=== PATIENT | male | born 1945 | race Caucasian/White ===

== ENCOUNTER 2021-01-22 12:05 | Inpatient (IN) | payer MEDICARE, OTHER ==
[2021-01-22] MEDS ORDERED: FAMOTIDINE 20 MG/2 ML VIAL IV ONE (12:38)
[2021-01-22] MEDS ORDERED: IPRATROPIUM BROM 0.5MG/2.5ML ONE ×3 (12:38→14:03)
[2021-01-22] MEDS ORDERED: LEVALBUTEROL 1.25 MG/3 ML NEB ONE ×3 (12:38→14:06)
[2021-01-22 12:48] LABS: Protime INR 1.09
[2021-01-22 12:52] LABS: Absolute Lymphocytes (CBC) 0.9 K/uL (0.7-4.9); Basophils % 0.2 % (0-1.3); Hematocrit 36.5 % (39.6-49.0); Lymphocytes % 10.8 % (15.3-44.8); MPV 9.3 fL (7.6-11.3); RBC Red Blood Cell Count 4.16 M/uL (4.33-5.43)
[2021-01-22 13:08] LABS: Albumin 2.8 g/dL (3.4-5.0); Bilirubin Direct 0.2 mg/dL (0-0.2); Bilirubin Total 0.4 mg/dL (0.2-1.0); Magnesium 2.3 mg/dL (1.8-2.4); Potassium 3.4 mmol/L (3.5-5.1); Protein, Total 6.8 g/dL (6.4-8.2); Troponin (Emerg Dept Use Only) 0.1 ng/mL (0.0-0.045)
--- NOTE | 2021-01-22 13:26 | RAD REPORT ---
EXAM DESCRIPTION: RAD - Chest Single View - 01/22/2021 1:17 pm CLINICAL HISTORY: Cough;COPD COMPARISON: June 2018 TECHNIQUE: AP portable chest image was obtained 01/22/2021 1:17 pm . FINDINGS: Bullous emphysema changes are present in the upper lung vicente with fibrotic stranding in both lung bases. Lung markings are accentuated by under penetrated technique. Right lung field is not clearly different. Stranding at the left base is slightly more pronounced in the superimposed left b ase infiltrate is suspected. This is not a dense consolidation. Failure or volume overload are unlikely. Heart and vasculature are normal. No measurable pleural effu shantell and no pneumothorax. No acute bony abnormality seen. No acute aortic findings suspected. IMPRESSION: Suspected early left lung base infiltrate superimposed on prominent COPD.
[2021-01-22] MEDS ORDERED: Levofloxacin500mg IV 500 MG/100 ML BAG IV ONE (13:49)
--- NOTE | 2021-01-22 13:57 | ER ---
Nurse's Notes [facility] Name: Chance Rodriguez Age: 75 yrs Sex: Male : 1945 Arrival Date: 01/22/2021 Time: 12:06 Bed 8 Private MD: Diagnosis: COPD/ Chronic obstructive pulmonary disease with (acute) exacerbation;Hypoxemia;Non ST elevation [place];Weakness;Coronavirus infection, unspecified Presentation: 01/22 12:06 Chief complaint: EMS states: increasing SOB over the past week. pt normally wears O2 at tr6 home, however has not used it for about a year because insurance does not cover it. on EMS arrival pt was 77% on RA. 125 solumedrol given and pt placed on NRB, sat increased to 100%. on arrival to ED pt sat 87% on RA. pt reports that he had atrovent treatment 1 hr prior to arrival. Coronavirus screen: At this time, unable to obtain information related to travel outside the [place] Ebola Screen: No symptoms or risks identified at this time. Initial Sepsis Screen: Does the patient meet any 2 criteria? RR > 20 per min. No. Patient's initial sepsis screen is negative. Does the patient have a suspected source of infection? No. Patient's initial sepsis screen is negative. Risk Assessment: Do you want to hurt yourself or someone else? Patient reports no desire to harm self or others. Onset of symptoms is unknown. Care prior to arrival: Medication(s) given: 125 solumedrol. 12:06 Method Of Arrival: EMS: [facility] tr6 12:06 Acuity: ROLANDO 2 tr6 12:06 Chief complaint: Patient's son or daughter states: granddaughter at bedside states that tr6 pt has not been feeling well for about a week, but denies fever. pt has chronic cough. pts granddaughter reports that pt told her that he lost his taste and smell recently. pts granddaughter also states that the labored breathing is baseline for pt. Care prior to arrival: BS 118. 12:19 Care prior to arrival: IV initiated. 20 GA, in the right forearm. tr6 Triage Assessment: 12:19 General: Appears uncomfortable, Behavior is calm, cooperative, appropriate for age. tr6 Pain: Denies pain. EENT: No deficits noted. EENT: Reports decreased hearing. Neuro: Level of Consciousness is awake, alert, obeys commands. Cardiovascular: Rhythm is sinus rhythm. Respiratory: Reports shortness of breath at rest on exertion since about a week Airway is patent Trachea midline Respiratory effort is even, labored, Respiratory pattern is regular, tachypnea the patient has moderate shortness of breath Parent/caregiver reports the patient having cough that is non-productive, chronic labored breathing. GI: Abdomen is round distended. : No deficits noted. Derm: No deficits noted. Musculoskeletal: No deficits noted. Historical: - Allergies: 12:12 No Known Allergies; tr6 - Home Meds: 12:18 Anoro Ellipta inhalation [Active]; Albuterol Inhl [Active]; Atrovent Nebulizer [Active];tr6 - PMHx: 12:12 copd; chronic cough; tr6 - PSHx: 12:12 Appendectomy; back surgery; tr6 - Immunization history:: Adult Immunizations unknown, Client reports having NOT received the Covid vaccine. - Social history:: Smoking status: Patient/guardian denies using tobacco, the patient reports quitting approximately 30 years ago. Screenin:28 Abuse screen: Denies threats or abuse. Denies injuries from another. Nutritional tr6 screening: No deficits noted. Tuberculosis screening: No symptoms or risk factors identified. Fall Risk None identified. Assessment: 12:36 Reassessment: see triage assessment. tr6 12:54 General: Appears in no apparent distress. unkempt, Behavior is calm, cooperative, tw5 appropriate for age, anxious. Pain: Denies pain. Cardiovascular: Heart tones S1 S2 present Capillary refill < 3 seconds is brisk in bilateral fingers. Respiratory: Airway is patent Trachea midline Respiratory effort is labored, with retractions, Respiratory pattern is tachypnea Breath sounds are coarse bilaterally. Onset: The symptoms/episode began/occurred yesterday, the patient has moderate shortness of breath. 13:44 Reassessment: Patient states feeling better. General: Appears uncomfortable, Behavior tw5 is calm, cooperative, appropriate for age. Respiratory: Airway is patent Trachea midline Respiratory effort is labored, Respiratory pattern is tachypnea Breath sounds are coarse bilaterally. 14:00 General: DaughterQuintin is at the bedside. . tw5 16:02 General: Charting moved to the [facility]. tw5 19:40 Reassessment: Report called to Mu RN, Pt to 405. bc5 Vital Signs: 12:06 BP 170 / 120; Pulse 88; Resp 30; Temp 97.9(O); Pulse Ox 88% on R/A; Weight 92.08 kg; tr6 Height 5 ft. 8 in. (172.72 cm); Pain 0/10; 12:54 BP 136 / 100; Pulse 82; Resp 26; Pulse Ox 94% on 10% Nebulizer Mask; Pain 0/10; tw5 13:44 BP 169 / 87; Pulse 93; Resp 24; Pulse Ox 93% on 6 lpm NC; Pain 0/10; tw5 14:30 BP 111 / 73; Pulse 94; Resp 20; Pulse Ox 99% on BiPAP; tr6 12:06 Body Mass Index 30.87 (92.08 kg, 172.72 cm) tr6 ED Course: 12:06 Patient arrived in ED. tr6 12:07 Khang Winston MD is Attending Physician. [facility] 12:12 Triage completed. tr6 12:20 First set of blood cultures drawn by me. aa5 12:28 Resting quietly. Awaiting lab results, Awaiting ED provider evaluation. tr6 12:28 Patient has correct armband on for positive identification. Bed in low position. Call tr6 light in reach. Side rails up X2. compliance monitor on. Pulse ox on. NIBP on. Door closed. Noise minimized. Visitors limited. Lights dimmed. Moved to private room. Warm blanket given. Verbal reassurance given. Family accompanied patient. 12:28 No provider procedures requiring assistance completed. Subsequent Neb Treatment Given tr6 as ordered Patient tolerated procedure well without adverse effect. Maintain EMS IV. Dressing intact. Good blood return noted. Site clean \T\ dry. Gauge \T\ site: 20 R FA. Oxygen administration via non-rebreather mask \T\ 15L/min Response to oxygen therapy: symptoms improved. 12:29 Patient placed in an exam room. EKG completed in triage. Results shown to . tr6 12:30 Inserted saline lock: 18 gauge in right antecubital area, using aseptic technique. aa5 Blood collected. 12:30 Initial lab(s) drawn, by me, sent to lab. Second set of blood cultures drawn by me. aa5 12:31 Claudine Emmanuel is Primary Nurse. tw 12:53 Basic Metabolic Panel Sent. tw 12:53 Liver (Hepatic) Function Sent. tw 12:53 ABG Sent. tw 12:53 Flu Sent. tw 12:53 Lactate Sent. tw 12:53 Blood Culture Adult (2) Sent. tw 12:53 Basic Metabolic Panel Sent. tw 12:53 CBC with Diff Sent. 12:53 LFT's Sent. tw 12:53 Magnesium Sent. tw 12:53 NT PRO-BNP Sent. tw 12:54 Verbal reassurance given. tw 12:54 Troponin (emerg Dept Use Only) Sent. tw5 13:17 XRAY Chest (1 view) In Process Unspecified. EDMS 13:55 Saqib Spaulding MD is Hospitalizing Provider. [facility] 14:46 Patient admitted, IV remains in place. tr6 Administered Medications: 12:38 Drug: Pepcid (famotidine) 20 mg Route: IVP; Site: right antecubital; tw 12:53 Follow up: Response: No adverse reaction 13:54 Follow up: Response: No adverse reaction tw 12:48 Drug: Xopenex (levalbuterol) 3.75 mg Route: Inhalation; 13:54 Follow up: Response: No adverse reaction 12:48 Drug: AtroVENT (ipratropium) Aerosol 0.5 mg Route: Inhalation; tw 13:32 Drug: levofloxacin 500 mg Volume: 100 ml; Route: IVPB; Infused Over: 60 mins; Site: tr6 right antecubital; 15:13 Follow up: Response: No adverse reaction; IV Status: Completed infusion 13:48 Drug: Lovenox (enoxaparin) 90 mg Route: Sub-Q; Site: right lower abdomen; tw 13:55 Follow up: Response: No adverse reaction 13:48 Drug: Aspirin 81 mg Route: PO; 13:54 Follow up: Response: No adverse reaction 13:49 Drug: Potassium Effervescent Tablet 25 mEq Route: PO; 13:55 Follow up: Response: No adverse reaction tw 13:52 Drug: AtroVENT (ipratropium) Aerosol 0.5 mg Route: Inhalation; 13:52 Drug: AtroVENT (ipratropium) Aerosol 0.5 mg Route: Inhalation; tw5 13:52 Drug: Xopenex (levalbuterol) 2.5 mg Route: Inhalation; tw5 13:55 Drug: Nitro-Bid (nitroglycerin) Ointment 2 % 1 inches Route: Transdermal; Site: tw5 anterior chest wall; 13:59 Drug: Magnesium Sulfate 2 grams Route: IVPB; Infused Over: 2 hrs; Site: right hand; tw5 16:03 Follow up: IV Status: Completed infusion tw5 Outcome: 13:56 Decision to Hospitalize by Provider. cata 14:46 Admitted to tr6 14:46 Condition: stable 14:46 Instructed on the need for admit, Demonstrated understanding of instructions. 19:41 Patient left the ED. 5 Signatures: Dispatcher [employer] EDMS Khang Winston MD MD cha Calderon, Audri, RN RN aa5 Claudine Shipley RN RN tr6 Opal Dent RN RN bc5 Claudine Emmanuel tw5 Corrections: (The following items were deleted from the chart) 12:19 12:12 Home Meds: Atrovent Inhl; tr6 tr6 12:36 12:06 BP 170 / 120; Pulse 88bpm; Resp 30bpm; Pulse Ox 88% RA; tr6 tr6 13:46 12:53 CORONAVIRUS+ drawn and sent. tw5 EDNM 13:55 12:06 Chief complaint: EMS states: increasing SOB over the past week. pt normally wears tr6 O2 at home, however has not used it for about a year because insurance does not cover it. on EMS arrival pt was 77% on RA. 125 solumedrol given and pt placed on NRB, sat increased to 100%. on arrival to ED pt sat 87% on RA. pt reports that he had atrovent treatment 1 hr prior to arrival tr6 13:55 12:06 Chief complaint: Patient's son or daughter states: granddaughter at bedside tr6 states that pt has not been feeling well for about a week, but denies fever. pt has chronic cough. pts granddaughter reports that pt told her that he lost his taste and smell recently tr6
--- NOTE | 2021-01-22 13:57 | EDPHYS ---
Physician Documentation [facility] [place], [place] Name: Chance Rodriguez Age: 75 yrs Sex: Male : 1945 Arrival Date: 01/22/2021 Time: 12:06 Bed 8 Private MD: ED Physician Khang Winston HPI: 01/22 13:42 This 75 yrs old Male presents to ER via EMS with complaints of sob, hypoxia, cata copd exacerbation. Historical: - Allergies: 12:12 No Known Allergies; tr6 - Home Meds: 12:18 Anoro Ellipta inhalation [Active]; Albuterol Inhl [Active]; Atrovent Nebulizer [Active];tr6 - PMHx: 12:12 copd; chronic cough; tr6 - PSHx: 12:12 Appendectomy; back surgery; tr6 - Immunization history:: Adult Immunizations unknown, Client reports having NOT received the Covid vaccine. - Social history:: Smoking status: Patient/guardian denies using tobacco, the patient reports quitting approximately 30 years ago. ROS: 13:52 Constitutional: Negative for fever, chills, and weight loss, Eyes: Negative for injury, cata pain, redness, and discharge, ENT: Negative for injury, pain, and discharge, Neck: Negative for injury, pain, and swelling, Cardiovascular: Negative for chest pain, palpitations, and edema, Abdomen/GI: Negative for abdominal pain, nausea, vomiting, diarrhea, and constipation, Back: Negative for injury and pain, : Negative for injury, bleeding, discharge, and swelling, MS/Extremity: Negative for injury and deformity, Skin: Negative for injury, rash, and discoloration, Neuro: Negative for headache, weakness, numbness, tingling, and seizure, Psych: Negative for depression, anxiety, suicide ideation, homicidal ideation, and hallucinations, Allergy/Immunology: Negative for hives, rash, and allergies, Endocrine: Negative for neck swelling, polydipsia, polyuria, polyphagia, and marked weight changes, Hematologic/Lymphatic: Negative for swollen nodes, abnormal bleeding, and unusual bruising. 13:52 Respiratory: Positive for cough, shortness of breath, at rest. wheezing, inspiratory, expiratory. 13:52 MS/extremity: Negative for decreased range of motion, pain, swelling, tenderness. Exam: 13:52 Constitutional: This is a well developed, well nourished patient who is awake, alert, cata and in no acute distress. Head/Face: Normocephalic, atraumatic. Eyes: Pupils equal round and reactive to light, extra-ocular motions intact. Lids and lashes normal. Conjunctiva and sclera are non-icteric and not injected. Cornea within normal limits. Periorbital areas with no swelling, redness, or edema. ENT: Nares patent. No nasal discharge, no septal abnormalities noted. Tympanic membranes are normal and external auditory canals are clear. Oropharynx with no redness, swelling, or masses, exudates, or evidence of obstruction, uvula midline. Mucous membranes moist. Neck: Trachea midline, no thyromegaly or masses palpated, and no cervical lymphadenopathy. Supple, full range of motion without nuchal rigidity, or vertebral point tenderness. No Meningismus. Chest/axilla: Normal chest wall appearance and motion. Nontender with no deformity. No lesions are appreciated. Cardiovascular: Regular rate and rhythm with a normal S1 and S2. No gallops, murmurs, or rubs. Normal PMI, no JVD. No pulse deficits. Abdomen/GI: Soft, non-tender, with normal bowel sounds. No distension or tympany. No guarding or rebound. No evidence of tenderness throughout. Back: No spinal tenderness. No costovertebral tenderness. Full range of motion. Male : Normal genitalia with no discharge or lesions. Skin: Warm, dry with normal turgor. Normal color with no rashes, no lesions, and no evidence of cellulitis. MS/ Extremity: Pulses equal, no cyanosis. Neurovascular intact. Full, normal range of motion. Neuro: Awake and alert, GCS 15, oriented to person, place, time, and situation. Cranial nerves II-XII grossly intact. Motor strength 5/5 in all extremities. Sensory grossly intact. Cerebellar exam normal. Normal gait. Psych: Awake, alert, with orientation to person, place and time. Behavior, mood, and affect are within normal limits. 13:52 Respiratory: moderate respiratory distress is noted, Respirations: accessory muscle usage, that is mild, Breath sounds: bronchial sounds, decreased breath sounds, rhonchi, that are mild, stridor, is not appreciated, wheezing: inspiratory is not appreciated, Respiratory rate: 24 13:58 ECG was reviewed by the Attending Physician. [facility] Vital Signs: 12:06 BP 170 / 120; Pulse 88; Resp 30; Temp 97.9(O); Pulse Ox 88% on R/A; Weight 92.08 kg; tr6 Height 5 ft. 8 in. (172.72 cm); Pain 0/10; 12:54 BP 136 / 100; Pulse 82; Resp 26; Pulse Ox 94% on 10% Nebulizer Mask; Pain 0/10; tw5 13:44 BP 169 / 87; Pulse 93; Resp 24; Pulse Ox 93% on 6 lpm NC; Pain 0/10; tw5 14:30 BP 111 / 73; Pulse 94; Resp 20; Pulse Ox 99% on BiPAP; tr6 12:06 Body Mass Index 30.87 (92.08 kg, 172.72 cm) tr6 MDM: 12:07 Patient medically screened. cata 13:53 Differential diagnosis: Anxiety Reaction asthma, Bronchitis CHF exacerbation, Chronic cata Obstructive Pulmonary Disease pneumonia, pulmonary edema, Pulmonary Embolism reactive airway disease, Sepsis Unstable Angina. Antibiotic administration: Levaquin given. The patient's Wells Deep Vein Thrombosis Score was calculated as follows: Total Score: 0-2 Pts- Low Risk. The patient's pulmonary embolism risk score was calculated as follows: Total Score: 0-2 points. This patient was found to be at low risk for a pulmonary embolism by using the Well's assessment criteria. Immunization status: Pneumococcal vaccine: Influenza vaccine: Data reviewed: vital signs, nurses notes, lab test result(s), EKG, radiologic studies, CT scan, plain films. Data interpreted: mailmaster: rate is 93 beats/min, rhythm is regular, Pulse oximetry: on room air is 93 %. Test interpretation: by ED physician or midlevel provider: ECG, plain radiologic studies. Counseling: I had a detailed discussion with the patient and/or guardian regarding: the historical points, exam findings, and any diagnostic results supporting the discharge/admit diagnosis, lab results, radiology results, the need for further work-up and treatment in the hospital. 01/22 12:10 Order name: Basic Metabolic Panel [facility] 01/22 12:10 Order name: CBC with Diff [facility] 01/22 12:10 Order name: LFT's [facility] 01/22 12:10 Order name: Magnesium; Complete Time: 13:23 [facility] 01/22 12:10 Order name: NT PRO-BNP; Complete Time: 13:23 [facility] 01/22 12:10 Order name: PT-INR; Complete Time: 13:02 [facility] 01/22 12:10 Order name: Troponin (emerg Dept Use Only); Complete Time: 13:23 [facility] 01/22 12:10 Order name: Blood Culture Adult (2) [facility] 01/22 12:10 Order name: Lactate; Complete Time: 13:23 [facility] 01/22 12:10 Order name: Flu; Complete Time: 19:10 [facility] 01/22 12:10 Order name: ABG; Complete Time: 19:10 [facility] 01/22 12:10 Order name: Basic Metabolic Panel; Complete Time: 13:23 [facility] 01/22 12:10 Order name: CBC with Automated Diff; Complete Time: 19:10 [facility] 01/22 12:10 Order name: XRAY Chest (1 view); Complete Time: 19:10 [facility] 01/22 12:10 Order name: Liver (Hepatic) Function; Complete Time: 13:23 [facility] 01/22 13:45 Order name: SARS-COV-2 RT PCR; Complete Time: 19:10 [facility] 01/22 14:22 Order name: CBC Smear Scan; Complete Time: 19:10 [facility] 01/22 14:49 Order name: T4 Free; Complete Time: 19:10 [facility] 01/22 14:49 Order name: Basic Metabolic Panel [facility] 01/22 14:49 Order name: Basic Metabolic Panel [facility] 01/22 14:49 Order name: Troponin I [facility] 01/22 14:49 Order name: Troponin I; Complete Time: 19:10 [facility] 01/22 14:49 Order name: Thyroid Stimulating Hormone; Complete Time: 19:10 [facility] 01/22 14:49 Order name: CBC with Automated Diff [facility] 01/22 14:49 Order name: CBC with Automated Diff [facility] 01/22 14:49 Order name: Troponin I [facility] 01/22 14:49 Order name: Troponin I [facility] 01/22 14:50 Order name: Urinalysis [facility] 01/22 17:08 Order name: Lactate Sepsis 2 HR Follow-up; Complete Time: 19:10 [facility] 01/22 12:10 Order name: EKG; Complete Time: 12:11 [facility] 01/22 12:10 Order name: Cardiac monitoring; Complete Time: 12:32 [facility] 01/22 12:10 Order name: EKG - Nurse/Tech; Complete Time: 12:32 [facility] 01/22 12:10 Order name: IV Saline Lock; Complete Time: 12:32 [facility] 01/22 12:10 Order name: Labs collected and sent; Complete Time: 12:32 [facility] 01/22 12:10 Order name: O2 Per Protocol; Complete Time: 12:32 [facility] 01/22 12:10 Order name: O2 Sat Monitoring; Complete Time: 12:32 [facility] 01/22 12:10 Order name: Urine Dipstick-Ancillary (obtain specimen); Complete Time: 12:53 [facility] 01/22 13:24 Order name: PO challenge; Complete Time: 13:33 [facility] 01/22 13:38 Order name: BIPAP [facility] 01/22 14:49 Order name: Heart Healthy [facility] 01/22 14:57 Order name: Echo with Doppler [facility] EC:58 Rate is 83 beats/min. Rhythm is regular. QRS [place] is Normal. NV interval is normal. QRS cata interval is normal. QT interval is normal. No Q waves. T waves are Normal. ST Segment is depressed in leads II, III, aVF. Clinical impression: NSR w/ Non-specific ST/T Changes and No evidence of ischemia. Interpreted by me. Reviewed by me. Administered Medications: 12:38 Drug: Pepcid (famotidine) 20 mg Route: IVP; Site: right antecubital; tw5 12:53 Follow up: Response: No adverse reaction tw 13:54 Follow up: Response: No adverse reaction tw5 12:48 Drug: Xopenex (levalbuterol) 3.75 mg Route: Inhalation; tw5 13:54 Follow up: Response: No adverse reaction tw5 12:48 Drug: AtroVENT (ipratropium) Aerosol 0.5 mg Route: Inhalation; tw5 13:32 Drug: levofloxacin 500 mg Volume: 100 ml; Route: IVPB; Infused Over: 60 mins; Site: tr6 right antecubital; 15:13 Follow up: Response: No adverse reaction; IV Status: Completed infusion tw5 13:48 Drug: Lovenox (enoxaparin) 90 mg Route: Sub-Q; Site: right lower abdomen; tw5 13:55 Follow up: Response: No adverse reaction tw5 13:48 Drug: Aspirin 81 mg Route: PO; tw5 13:54 Follow up: Response: No adverse reaction tw5 13:49 Drug: Potassium Effervescent Tablet 25 mEq Route: PO; tw5 13:55 Follow up: Response: No adverse reaction tw5 13:52 Drug: AtroVENT (ipratropium) Aerosol 0.5 mg Route: Inhalation; tw5 13:52 Drug: AtroVENT (ipratropium) Aerosol 0.5 mg Route: Inhalation; tw 13:52 Drug: Xopenex (levalbuterol) 2.5 mg Route: Inhalation; tw 13:55 Drug: Nitro-Bid (nitroglycerin) Ointment 2 % 1 inches Route: Transdermal; Site: tw5 anterior chest wall; 13:59 Drug: Magnesium Sulfate 2 grams Route: IVPB; Infused Over: 2 hrs; Site: right hand; tw5 16:03 Follow up: IV Status: Completed infusion tw5 Disposition Summary: 01/22/21 13:56 Hospitalization Ordered Hospitalization Status: Inpatient Admission cata Provider: Saqib Spaulding cha Location: Telemetry/MedSurg (Inpatient) cata Condition: Fair cata Problem: new cata Symptoms: have improved cata Bed/Room Type: Standard cata Room Assignment: [id number](01/22/21 18:56) iw Diagnosis - COPD/ Chronic obstructive pulmonary disease with (acute) exacerbation cata - Hypoxemia cata - Non ST elevation [place] cata - Weakness cata - Coronavirus infection, unspecified cata Forms: - Medication Reconciliation Form cata - SBAR form cata Signatures: Dispatcher [employer] EDKhang Isabel MD MD cha Williams, Irene RN Claudine Dunn RN RN tr6 Wood, Tiffany tw5 Corrections: (The following items were deleted from the chart) 12:19 12:12 Home Meds: Atrovent Inhl; tr6 tr6 13:46 12:11 CORONAVIRUS+[email or web address] ordered. [facility] EDMS 18:56 13:56 cata
[2021-01-22] MEDS ORDERED: NITROGLYCERIN 1 GM PKT TD ONE (14:05)
[2021-01-22] MEDS ORDERED: POTASSIUM 25 MEQ EFFERV TAB ONE (14:06)
[2021-01-22] MEDS ORDERED: ENOXAPARIN 100 MG/ML SYR SQ ONE (14:06)
[2021-01-22] MEDS ORDERED: ASPIRIN 81 MG CHEWABLE TABLET ONE (14:06)
[2021-01-22] MEDS ORDERED: Magnesium Sulfate 2gm IVPB 2 G/50 ML BAG IV ONE (14:07)
[2021-01-22 14:22] LABS: White Blood Cell Scan OK (OK)
[2021-01-22 14:23] LABS: Blood Morphology Comment NOT SEEN (NOT SEEN); Platelet Estimate ADEQ; Platelets, Giant PRESENT
[2021-01-22 14:33] LABS: Arterial Blood Carboxyhemoglob 1.1 % (0-1.5); Blood Gas Oxyhemoglobin 97.1 % (94-97)
[2021-01-22] MEDS ORDERED: ONDANSETRON 4 MG/2 ML VIAL IV PRN (14:48)
--- NOTE | 2021-01-22 14:57 | P.HP ---
Certification for Inpatient Patient admitted to: Inpatient With expected LOS: >2 Midnights Patient will require the following post-hospital care: None Practitioner: I am a practitioner with admitting privileges, knowledge of patient current condition, hospital course, and medical plan of care. Services: Services provided to patient in accordance with Admission requirements found in Title 42 Section 412.3 of the Code of Federal Regulations Patient History Date of Service: 01/23/21 Reason for admission: SOB History of Present Illness: Patient is a 75-year-old male with a past medical history significant for COPD, chronic cough and HTN who presents with complaint of shortness of breath that has been ongoing for the past 1 week. Patient reports associated signs and symptoms of chest tightness. Symptoms are aggravated by exertion and relieved by nothing. Patient reported that he used his home medications therapy but did not see any improvement in shortness of breath. Patient decided to present to the hospital due to worsening symptoms. Allergies No Known Allergies Allergy (Verified 08/24/12 17:36) Home Medications: Aspirin Enteric Coated [ASPIRIN 81 MG EC*] 81 mg PO DAILY 08/24/12 Metoprolol Tartrate [Lopressor*] 25 mg PO BID #30 tab 08/25/12 - Past Medical/Surgical History -: HTN -: Chroinic cough Past Surgical History: Patient denies surgical history - Family History Family History: Reviewed- Non-Contributory - Social History Smoking Status: Former smoker Alcohol use: No CD- Drugs: No Caffeine use: Yes Place of Residence: Home Review of Systems General: Unremarkable Eyes: Unremarkable ENT: Unremarkable Respiratory: Cough, Shortness of Breath, SOB with Excertion Cardiovascular: Unremarkable Gastrointestinal: Unremarkable Genitourinary: Unremarkable Musculoskeletal: Unremarkable Integumentary: Unremarkable Neurological: Unremarkable Lymphatics: Unremarkable Physical Examination - Physical Exam General: Alert, Oriented x3, Acute distress HEENT: Atraumatic, PERRLA, Mucous membr. moist/pink, EOMI, Sclerae nonicteric Neck: Supple, 2+ carotid pulse no bruit, No LAD, Without JVD or thyroid abnormality Respiratory: Diminished Cardiovascular: Regular rate/rhythm, Normal S1 S2 Capillary refill: <2 Seconds Gastrointestinal: Normal bowel sounds, No tenderness Musculoskeletal: No tenderness Integumentary: No rashes Neurological: Normal gait, Normal speech, Normal tone, Normal affect Lymphatics: No axilla or inguinal lymphadenopathy External genitalia: Deferred Rectal: Deferred - Studies Laboratory Data (last 24 hrs) 01/22/21 12:30: PT 12.5, INR 1.09 01/22/21 12:30: WBC 8.10, Hgb 12.3 L, Hct 36.5 L, Plt Count 195 01/22/21 12:30: Sodium 141, Potassium 3.4 L, BUN 16, Creatinine 1.07, Glucose 125 H, Magnesium 2.3, Total Bilirubin 0.4, AST 129 H, ALT 100 H, Alkaline Phosphatase 68 Microbiology Data (last 24 hrs): 01/22/21 12:50 Nasopharnyx Influenza Type A Antigen Screen - Final 01/22/21 12:50 Nasopharnyx Influenza Type B Antigen Screen - Final Assessment and Plan - Plan --COVID-19 pneumonia. Pulmonology consulted. Continue steroids and oral supplements. Patient on BIPAP therapy. Further management per risk management specialist. --COVID-19 infection. Continue current treatment regimen. Continue contact and airborne precautions. --Acute on chronic COPD exacerbation. Patient on BiPAP. Continue steroids. Further mgt per risk management specialist --Acute respiratory failure with hypoxia. Secondary to COVID-19 pneumonia and COPD exacerbation. Continue current treatment regimen. --Elevated troponin. Cardiology consulted. We will continue to trend troponin. Echocardiogram pending. Telemetry to monitor for any significant arrhythmia. Further management per casing material weigher. --Hypertension. Continue metoprolol and labetalol as needed. --Chronic cough. Guaifenesin as needed. --Anemia of chronic disease. H&H stable. We will continue to monitor hemoglobin and transfuse if less than 7.0. --CKD 2. Stable. We will continue to monitor renal functions. --DVT prophylaxis with Heparin subQ I have had discussion about advanced directives with the patient during this hospital admission. Addressed code status and goals of care. Spent more than 30 minutes. Case discussed withpatient and nurse. The following document was completed using voice recognition software. This can produce fitting room inspector errors that can at times significantly distort words and phrases. Please interpret any aspect of the note that is nonsensical in light of this fact. Discharge Plan: Home Plan to discharge in: 48 Hours - Advance Directives Does patient have a Living Will: No Does patient have a Durable POA for Healthcare: Yes - Code Status/Comfort Care Code Status Assessed: Yes Code Status: Full Code Physician Review: Patient Assessed, Agree with Above Assessment and Plan Critical Care: No
[2021-01-22 16:00] VITALS: BMI 34.9
[2021-01-22] MEDS: METHYLPREDNISOLONE 40 MG INJ IV SCH (17:00)
[2021-01-22 17:22] LABS: Thyroid Stimulating Hormone 0.819 uIU/mL (0.360-3.740); Troponin I 0.08 ng/mL (0.0-0.045)
[2021-01-22] MEDS ORDERED: METHYLPREDNISOLONE 40 MG INJ ONE (17:34)
[2021-01-22] MEDS ORDERED: PNEUMOCOCCAL VACCINE 0.5 ML IMVAC ONE (19:00)
[2021-01-22] MEDS ORDERED: INFLUENZA VACCINE (for 6+ mo) 0.5 ML DOSE IMVAC ONE (19:00)
[2021-01-22] MEDS: IPRATROPIUM BROM 0.5MG/2.5ML NEB SCH (20:10)
[2021-01-22] MEDS: ALBUTEROL 2.5 MG/3 ML NEB SOL NEB SCH (20:10)
[2021-01-22] MEDS: HEPARIN 5000 UNIT/ML 1 ML VIAL SQ SCH (21:26)
[2021-01-22] MEDS: METOPROLOL TAR 25 MG TAB PO SCH (21:26)
[2021-01-23] MEDS: METHYLPREDNISOLONE 40 MG INJ IV SCH ×4 (01:00→20:24)
[2021-01-23] MEDS: ALBUTEROL 2.5 MG/3 ML NEB SOL NEB SCH (01:25)
[2021-01-23] MEDS: IPRATROPIUM BROM 0.5MG/2.5ML NEB SCH (01:25)
[2021-01-23 03:58] LABS: Absolute Lymphocytes (CBC) 0.5 K/uL (0.7-4.9); Basophils % 1.5 % (0-1.3); Hematocrit 34.3 % (39.6-49.0); Lymphocytes % 9.1 % (15.3-44.8); MPV 9.4 fL (7.6-11.3); RBC Red Blood Cell Count 3.89 M/uL (4.33-5.43)
[2021-01-23 04:13] LABS: Potassium 3.4 mmol/L (3.5-5.1)
[2021-01-23] MEDS ORDERED: POTASSIUM CL SA 10 MEQ TAB PO ONE (07:23)
[2021-01-23] MEDS: ASCORBIC ACID 500 MG TABLET PO SCH ×4 (07:49→20:24)
[2021-01-23] MEDS: FAMOTIDINE 20 MG TAB PO SCH ×2 (07:49→20:24)
[2021-01-23] MEDS: ASPIRIN 81 MG CHEWABLE TABLET PO SCH (07:49)
[2021-01-23] MEDS: VITAMIN D 5,000 UNIT CAP PO SCH (07:49)
[2021-01-23] MEDS: HEPARIN 5000 UNIT/ML 1 ML VIAL SQ SCH (07:50)
[2021-01-23] MEDS: ZINC SULFATE 220 MG CAP PO SCH (07:51)
[2021-01-23] MEDS ORDERED: METHYLPREDNISOLONE 40 MG INJ IV SCH (09:00)
[2021-01-23] MEDS: METOPROLOL TAR 25 MG TAB PO SCH ×2 (09:43→20:24)
[2021-01-23] MEDS: THIAMINE 200 MG/2 ML INJ IM SCH (09:45)
--- NOTE | 2021-01-23 12:33 | P.CNS ---
Date of Consult: 01/23/21 Reason for Consult: COPD exacerbation Chief Complaint: SOB History of Present Illness: Patient is 75 years of age with a history of COPD mated with worsening dyspnea was found to be Covid positive he has underlying COPD compliant with his medication Allergies No Known Allergies Allergy (Verified 08/24/12 17:36) Home Medications: Aspirin Enteric Coated [ASPIRIN 81 MG EC*] 81 mg PO DAILY 08/24/12 Metoprolol Tartrate [Lopressor*] 25 mg PO BID #30 tab 08/25/12 - Past Medical/Surgical History -: HTN -: Chroinic cough -: COPD - Social History Smoking Status: Former smoker Alcohol use: No CD- Drugs: No Caffeine use: Yes Place of Residence: Home Review of Systems 10-point ROS is otherwise unremarkable General: Weakness Respiratory: Cough, Shortness of Breath Physical Examination Temp Pulse Resp BP Pulse Ox 97.5 F 55 18 142/83 H 100 01/23/21 12:00 01/23/21 12:00 01/23/21 12:00 01/23/21 12:00 01/23/21 12:00 General: Alert, Oriented x3 Respiratory: Expiratory wheezes Cardiovascular: Regular rate/rhythm Laboratory Data (last 24 hrs) 01/22/21 12:30: PT 12.5, INR 1.09 01/22/21 12:30: WBC 8.10, Hgb 12.3 L, Hct 36.5 L, Plt Count 195 01/22/21 12:30: Sodium 141, Potassium 3.4 L, BUN 16, Creatinine 1.07, Glucose 125 H, Magnesium 2.3, Total Bilirubin 0.4, AST 129 H, ALT 100 H, Alkaline Phos phatase 68 - Problems (1) COPD exacerbation Current Visit: Yes Status: Acute Plan: Patient is 75 years of age admitted with COPD exacerbation his coronavirus positive patient is requiring significant amount of oxygen continue to wean down on the oxygen patient did have hypoxemia CT angiogram does use an inhaler at home blood pressure stable add a bronchodilator
--- NOTE | 2021-01-23 13:11 | RAD REPORT ---
EXAM DESCRIPTION: CT - Chest Angio - 01/23/2021 1:02 pm CLINICAL HISTORY: Rule out PE, COVID pneumonia, shortness of breath COMPARISON: Thorax Wo Con dated 02/21/2018 TECHNIQUE: Dynamically enhanced 3 mm thick images of the chest were obtained during administration o f approximately 150mL Isovue 370 IV contrast. Coronal and oblique MIP reconstruction images were gene rated and reviewed. Exam utilizes a protocol to evaluate the pulmonary arterial tree. All CT scans are performed using dose optimization technique as appropriate and may include automated exposure control or mA/KV adjustment according to patient size. FINDINGS: No pulmonary emboli are identified. The aorta as imaged shows no acute or suspicious finding. No pericardial thickening or effusion. Minimal focus consolidations seen in the posterior gutter on the right. Lung base interstitial opacif ication is present increased over the 2018 comparison. Fibrotic stranding and emphysema changes noted of the upper lung vicente. Minimal patchy airspace opacities are present in the superior segment left lower lobe. No pleural effusion or pleural thickening. Motion degradation is present. Central bronchial wall thickening is seen with no endobronchial lesion. No mediastinal or hilar suspi cious masses. No chest wall masses or abnormal axillary lymphadenopathy. No cardiomegaly. IMPRESSION: No pulmonary emboli identified. Prominent COPD changes are presentwith bilateral interstitial and scattered alveolar opacities in the lower lung vicente. Findings are not a classic presentation but would be compatible with COVID-19 pne umonia in his COPD patient.
[2021-01-23] MEDS: ALBUTEROL 2.5 MG/3 ML NEB SOL IH SCH ×2 (14:00→19:50)
[2021-01-23] MEDS: DULERA 200/5 (MOMETASONE/FORMOTEROL) INHALER IH SCH ×2 (15:38→20:27)
--- NOTE | 2021-01-23 15:52 | P.PN ---
Subjective Date of Service: 01/23/21 Chief Complaint: SOB Patient maintained on 14 L oxygen by nasal cannula. Patient states he feels better compared to yesterday. Physical Examination - Vital Signs Temperature: 97.5 F Blood Pressure: 142/83 Pulse: 55 Respirations: 18 Pulse Ox (%): 100 - Physical Exam General: Alert, In no apparent distress HEENT: Mucous membr. moist/pink Neck: JVD not distended Respiratory: Other (Bilateral wheeze) Cardiovascular: No edema, Regular rate/rhythm, Normal S1 S2 Gastrointestinal: Normal bowel sounds, Soft and benign, Non-distended Musculoskeletal: No swelling Integumentary: No rashes Neurological: Normal strength at 5/5 x4 extr - Studies Microbiology Data (last 24 hrs): 01/22/21 12:50 Nasopharnyx Influenza Type A Antigen Screen - Final 01/22/21 12:50 Nasopharnyx Influenza Type B Antigen Screen - Final Assessment And Plan - Current Problems (Diagnosis) (1) COPD exacerbation Current Visit: Yes Status: Acute (2) Pneumonia due to COVID-19 virus Current Visit: Yes Status: Acute (3) Acute respiratory failure with hypoxia Current Visit: Yes Status: Acute - Plan Continue IV steroid. Bronchodilator inhalers. Oral antibiotics. Pulmonary input appreciated. Wean oxygen Vitamin supplementation Zinc supplementation. Physician Review: Patient Assessed, Agree with Above Assessment and Plan
[2021-01-23 16:17] LABS: Urine Appearance CLEAR (Clear); Urine Bilirubin NEGATIVE (Negative); Urine Blood 2+ (Negative); Urine Color YELLOW (Yellow); Urine Glucose NEGATIVE (Negative); Urine Protein 1+ (Negative); Urine Specific Gravity >=1.030 (1.005-1.030)
[2021-01-23 16:31] LABS: Urine Bacteria <20 /HPF (NONE SEEN); Urine Microscopic Reflex ORDER UMIC
[2021-01-23 16:32] LABS: Urine Amorphous Sediment 1+ /HPF (NONE SEEN)
--- NOTE | 2021-01-23 18:50 | CON ---
Date of Consultation: 01/23/2021 Reason For Consultation: Elevated troponin. History Of Present Illness: This is a 75-year-old male with history of COPD, hypertension, presented with shortness of breath and cough, diagnosed with COVID-19 pneumonia, found to have borderline elev ation of troponin at 0.08 and so I was consulted to evaluate the patient by bedside. He does not hav e any chest pain or no history of coronary artery disease or exertional chest pain. Past Medical History: As outlined above in HPI. Medications: He is on aspirin and metoprolol. Allergies: NO KNOWN DRUG ALLERGIES. Family History: No premature coronary artery disease or cancer. Social History: Does not smoke or drink. Does not use any drugs. Review of Systems: All systems reviewed and they were negative except for what mentioned in HPI. Physical Examination: Vital Signs: Reviewed. Head and Neck: Pupils are equal, reactive to light. Intact eye movements. No JVD. No cervical lym phadenopathy. Neck: Supple. Thyroid is not enlarged. Lungs: Rhonchi bilateral. No accessory muscle use or muscle retraction. Heart: Regular rate and rhythm. No extra sounds. Abdomen: Soft, nontender. Bowel sounds positive. No organomegaly. No masses or hernia. No rigidi ty or rebound. Extremities: No clubbing or cyanosis. Intact pulses. Skin: No rashes. Neurologic: Alert, awake, oriented x3. No acute focal deficits appreciated. Investigations: Troponins 0.07, then 0.08. Creatinine 0.92. Assessment And Recommendations: Elevated troponin, mildly elevated, likely due to demand ischemia du e to COVID-19. Obtain echocardiogram. If no wall motion abnormalities and if normal ejection fracti on, then I recommend nuclear stress test which can be arranged to be done as an outpatient basis. Pl ease make sure the patient is on baby aspirin 81 mg daily. SR/MODL Voice ID: [id number] Report ID: [id number]
[2021-01-23] MEDS: MELATONIN 5 MG TABLET PO SCH (20:24)
[2021-01-23] MEDS ORDERED: DULERA 100/5 (MOMETASONE/FORMOTEROL) INHALER IH SCH (21:00)
[2021-01-24] MEDS: ALBUTEROL 2.5 MG/3 ML NEB SOL IH SCH ×4 (01:10→20:22)
[2021-01-24] MEDS: METHYLPREDNISOLONE 40 MG INJ IV SCH ×2 (03:00→08:29)
[2021-01-24 04:26] LABS: Absolute Lymphocytes (CBC) 0.4 K/uL (0.7-4.9); Basophils % 0.2 % (0-1.3); Hematocrit 34.2 % (39.6-49.0); Lymphocytes % 4.1 % (15.3-44.8); MPV 9.7 fL (7.6-11.3); RBC Red Blood Cell Count 3.87 M/uL (4.33-5.43)
[2021-01-24 04:27] LABS: Potassium 3.6 mmol/L (3.5-5.1)
[2021-01-24 05:28] LABS: Platelet Estimate ADEQ; Platelets, Giant SEEN
[2021-01-24 05:30] LABS: Anisocytosis 1+; Blood Morphology Comment NOTED (NOT SEEN); Ovalocytes 1+
[2021-01-24] MEDS ORDERED: POTASSIUM CL SA 10 MEQ TAB PO ONE (07:30)
[2021-01-24] MEDS: ASPIRIN 81 MG CHEWABLE TABLET PO SCH (08:25)
[2021-01-24] MEDS: METOPROLOL TAR 25 MG TAB PO SCH ×2 (08:25→20:50)
[2021-01-24] MEDS: FAMOTIDINE 20 MG TAB PO SCH ×2 (08:25→20:51)
[2021-01-24] MEDS: ENOXAPARIN 40 MG/0.4 ML SQ SCH (08:25)
[2021-01-24] MEDS: ZINC SULFATE 220 MG CAP PO SCH (08:25)
[2021-01-24] MEDS: ASCORBIC ACID 500 MG TABLET PO SCH ×4 (08:25→20:51)
[2021-01-24] MEDS: VITAMIN D 5,000 UNIT CAP PO SCH (08:26)
[2021-01-24] MEDS: DULERA 200/5 (MOMETASONE/FORMOTEROL) INHALER IH SCH ×2 (08:27→20:50)
[2021-01-24] MEDS: THIAMINE 200 MG/2 ML INJ IM SCH (08:34)
--- NOTE | 2021-01-24 08:37 | ECHO ---
HEIGHT: 5 ft 8 in WEIGHT: 230 lb 0 oz DATE OF STUDY: 01/23/[address]: Uri Morales 2-DIMENSIONAL: YES M.MODE: YES DOPPLER: YES COLOR FLOW: YES TDS: YES PORTABLE: DEFINITY: BUBBLE STUDY: DIAGNOSIS: ELEVATED TROPONIN CARDIAC HISTORY: CATHERIZATION: SURGERY: PROSTHETIC VALVE: PACEMAKER: MEASUREMENTS (cm) DIASTOLIC (NORMALS) SYSTOLIC (NORMALS) IVSd 1.1 (0.6-1.2) LA Diam 4.1 (1.9-4.0) LVEF 74% LVIDd 5.2 (3.5-5.7) LVIDs 3.0 (2.0-3.5) %FS 43% LVPWd 1.1 (0.6-1.2) Ao Diam 3.1 (2.0-3.7) 2 DIMENSIONAL ASSESSMENT: RIGHT ATRIUM: NORMAL LEFT ATRIUM: NORMAL RIGHT VENTRICLE: NORMAL LEFT VENTRICLE: NORMAL TRICUSPID VALVE: NORMAL MITRAL VALVE: NORMAL PULMONIC VALVE: NORMAL AORTIC VALVE: NORMAL PERICARDIAL EFFUSION: NONE AORTIC ROOT: NORMAL LEFT VENTRICULAR WALL MOTION: NORMAL DOPPLER/COLOR FLOW: MILD TRICUSPID REGURGITATION. COMMENTS: NORMAL LEFT VENTRICULAR EJECTION FRACTION 55-60% WITH NORMAL WALL MOTION. MILD TRICUPSID REGURGITATION. TECHNOLOGIST: DIO PRICE
--- NOTE | 2021-01-24 12:33 | P.PN ---
Subjective Date of Service: 01/24/21 Chief Complaint: COPD exacerbation Subjective: Improving (Patient improving still hypoxic possible underlying coronavirus pneumonia) Review of Systems General: Weakness Respiratory: Shortness of Breath Physical Examination - Vital Signs Temperature: 96.9 F Blood Pressure: 144/73 Pulse: 64 Respirations: 22 Pulse Ox (%): 89 - Physical Exam General: Alert, Oriented x3, Cooperative Assessment & Plan - Problems (Diagnosis) (1) COPD exacerbation Current Visit: Yes Status: Acute Plan: Admitted with COPD exacerbation with underlying coronavirus pneumonia echocardiogram is normal no pulmonary emboli minute interstitial changes in the lower lobes requiring about 8 L of oxygen changed to prednisone 40 mg p.o. twice a day Physician Review: Patient Assessed, Agree with Above Assessment and Plan
--- NOTE | 2021-01-24 16:09 | P.PN ---
Subjective Date of Service: 01/24/21 Chief Complaint: COPD exacerbation Patient's oxygen requirement gradually improving. Oxygen weaned down to 10 L by nasal canula. Physical Examination - Vital Signs Temperature: 96.9 F Blood Pressure: 144/73 Pulse: 64 Respirations: 22 Pulse Ox (%): 89 - Physical Exam General: Alert, In no apparent distress, Oriented x3 HEENT: Mucous membr. moist/pink Neck: JVD not distended Respiratory: Diminished Cardiovascular: Regular rate/rhythm, Normal S1 S2 Gastrointestinal: Soft and benign, Non-distended, No tenderness Musculoskeletal: No swelling Integumentary: No rashes Neurological: Normal strength at 5/5 x4 extr Assessment And Plan - Current Problems (Diagnosis) (1) COPD exacerbation Current Visit: Yes Status: Acute (2) Pneumonia due to COVID-19 virus Current Visit: Yes Status: Acute (3) Acute respiratory failure with hypoxia Current Visit: Yes Status: Acute - Plan Continue IV steroid. Bronchodilator inhalers. Oral antibiotics. Pulmonary is following Wean oxygen as tolerated. Vitamin supplementation Zinc supplementation. Increase activity as tolerated.
[2021-01-24] MEDS: predniSONE 20 MG TAB PO SCH (20:49)
[2021-01-24] MEDS: MELATONIN 5 MG TABLET PO SCH (20:51)
[2021-01-25] MEDS: ALBUTEROL 2.5 MG/3 ML NEB SOL IH SCH ×4 (02:40→19:55)
[2021-01-25 06:01] LABS: Potassium 3.9 mmol/L (3.5-5.1)
[2021-01-25] MEDS: ENOXAPARIN 40 MG/0.4 ML SQ SCH (08:32)
[2021-01-25] MEDS: predniSONE 20 MG TAB PO SCH ×2 (08:33→21:19)
[2021-01-25] MEDS: THIAMINE 200 MG/2 ML INJ IM SCH (08:33)
[2021-01-25] MEDS: VITAMIN D 5,000 UNIT CAP PO SCH (08:33)
[2021-01-25] MEDS: ASPIRIN 81 MG CHEWABLE TABLET PO SCH (08:34)
[2021-01-25] MEDS: ZINC SULFATE 220 MG CAP PO SCH (08:34)
[2021-01-25] MEDS: ASCORBIC ACID 500 MG TABLET PO SCH ×4 (08:34→21:19)
[2021-01-25] MEDS: METOPROLOL TAR 25 MG TAB PO SCH ×2 (08:34→21:20)
[2021-01-25] MEDS: FAMOTIDINE 20 MG TAB PO SCH ×2 (08:34→21:19)
[2021-01-25] MEDS: DULERA 200/5 (MOMETASONE/FORMOTEROL) INHALER IH SCH ×2 (08:35→21:00)
[2021-01-25] MEDS ORDERED: POTASSIUM CL SA 10 MEQ TAB PO ONE (09:00)
--- NOTE | 2021-01-25 15:33 | P.PN ---
Subjective Date of Service: 01/25/21 Chief Complaint: COPD exacerbation Patient seen using BiPAP today. Physical Examination - Vital Signs Temperature: 97.9 F Blood Pressure: 173/81 Pulse: 71 Respirations: 35 Pulse Ox (%): 97 - Physical Exam General: In no apparent distress HEENT: Other (BiPAP) Neck: JVD not distended Respiratory: Diminished, Expiratory wheezes (Bilateral) Cardiovascular: No edema, Regular rate/rhythm, Normal S1 S2 Gastrointestinal: Soft and benign, Non-distended, No tenderness Musculoskeletal: No swelling Integumentary: No rashes Neurological: Normal strength at 5/5 x4 extr Assessment And Plan - Current Problems (Diagnosis) (1) COPD exacerbation Current Visit: Yes Status: Acute (2) Pneumonia due to COVID-19 virus Current Visit: Yes Status: Acute (3) Acute respiratory failure with hypoxia Current Visit: Yes Status: Acute - Plan Continue IV steroid. Bronchodilator inhalers. Continue antibiotics. Xanax for anxiety. Pulmonary is following Wean oxygen as tolerated. Vitamin supplementation Zinc supplementation. Increase activity as tolerated.
[2021-01-25] MEDS: MELATONIN 5 MG TABLET PO SCH (21:22)
[2021-01-26] MEDS: GUAIFENESIN/DM 5 ML UCUP PO PRN (01:13)
[2021-01-26] MEDS: ALBUTEROL 2.5 MG/3 ML NEB SOL IH SCH ×4 (02:30→20:00)
[2021-01-26] MEDS: LABETALOL 20 MG/4ML SYRINGE IV PRN (04:10)
[2021-01-26 05:20] LABS: Potassium 4.5 mmol/L (3.5-5.1)
[2021-01-26] MEDS: THIAMINE 200 MG/2 ML INJ IM SCH (08:36)
[2021-01-26] MEDS: ENOXAPARIN 40 MG/0.4 ML SQ SCH (08:36)
[2021-01-26] MEDS: ASPIRIN 81 MG CHEWABLE TABLET PO SCH (08:36)
[2021-01-26] MEDS: predniSONE 20 MG TAB PO SCH (08:37)
[2021-01-26] MEDS: METOPROLOL TAR 25 MG TAB PO SCH ×2 (08:37→20:49)
[2021-01-26] MEDS: ASCORBIC ACID 500 MG TABLET PO SCH (08:37)
[2021-01-26] MEDS: VITAMIN D 5,000 UNIT CAP PO SCH (08:37)
[2021-01-26] MEDS: FAMOTIDINE 20 MG TAB PO SCH ×2 (08:37→20:50)
[2021-01-26] MEDS: ZINC SULFATE 220 MG CAP PO SCH (08:37)
[2021-01-26] MEDS: DULERA 200/5 (MOMETASONE/FORMOTEROL) INHALER IH SCH (08:38)
[2021-01-26] MEDS: AMLODIPINE 10 MG TAB PO SCH (10:16)
--- NOTE | 2021-01-26 10:36 | P.PN ---
Subjective Date of Service: 01/26/21 Chief Complaint: Respiratory failure Patient not doing well he is on maximum oxygen including BiPAP high flow and barely maintaining his sats in the mid 80s tachypneic Review of Systems General: Weakness Respiratory: Shortness of Breath Physical Examination - Vital Signs Temperature: 97.6 F Blood Pressure: 167/76 Pulse: 73 Respirations: 20 Pulse Ox (%): 94 - Physical Exam General: Alert, Moderate distress Respiratory: Expiratory wheezes Cardiovascular: No edema, Regular rate/rhythm Assessment & Plan - Problems (Diagnosis) (1) Acute respiratory failure with hypoxia Current Visit: Yes Status: Acute Plan: Patient is 76 years of age admitted with COPD exacerbation and coronavirus pneumonia is not doing well aggressive deterioration transferred to the ICU start back on Solu-Medrol Physician Review: Patient Assessed, Agree with Above Assessment and Plan
[2021-01-26] MEDS: METHYLPREDNISOLONE 125 MG INJ IV SCH ×2 (11:40→20:50)
--- NOTE | 2021-01-26 13:16 | RAD REPORT ---
EXAM DESCRIPTION: RAD - Chest Single View - 01/26/2021 12:38 pm CLINICAL HISTORY: Respiratory failure COMPARISON: Portable January 22, CT chest January 23 TECHNIQUE: AP portable chest image was obtained 01/26/2021 12:38 pm . FINDINGS: Extensive bullous emphysematous change again noted in the upper lung vicente. Interstitial stranding remains in both lower lung vicente. Findings are similar on the right and similar to fractio christina improved on the left. No progressive lung parenchymal finding identified. Heart and vasculature are normal. No measurable pleural effusion and no pneumothorax. No acute bony abnormality seen. No acute aortic findings suspected. IMPRESSION: Bilateral lung base lung parenchymal opacification stable to fractionally improved from January 22 imaging.
[2021-01-26 13:21] LABS: Blood Gas Oxyhemoglobin 90.1 % (94-97); Blood O2 Saturation 91.8 % (92-98.5)
[2021-01-26] MEDS: HYDROCODONE/APAP 5/325 MG TAB PO PRN ×2 (14:11→23:06)
--- NOTE | 2021-01-26 15:12 | P.PN ---
Subjective Date of Service: 01/26/21 Chief Complaint: Respiratory failure Patient now on high-flow oxygen. No significant clinical improvement. Physical Examination - Vital Signs Temperature: 98.2 F Blood Pressure: 117/67 Pulse: 72 Respirations: 21 Pulse Ox (%): 95 - Physical Exam General: Alert, Mild distress Neck: JVD not distended Respiratory: Crackles/rales (Bibasilar crackles), Other (Mild expiratory wheezes) Cardiovascular: Regular rate/rhythm, Normal S1 S2 Gastrointestinal: Soft and benign, Non-distended Musculoskeletal: No swelling Integumentary: No rashes Neurological: Normal strength at 5/5 x4 extr Assessment And Plan - Current Problems (Diagnosis) (1) COPD exacerbation Current Visit: Yes Status: Acute (2) Pneumonia due to COVID-19 virus Current Visit: Yes Status: Acute (3) Acute respiratory failure with hypoxia Current Visit: Yes Status: Acute - Plan Continue IV steroid. Bronchodilator inhalers. Continue antibiotics. Xanax prn for anxiety. Pulmonary is following Vitamin supplementation Zinc supplementation. Titrate oxygen. Physician Review: Patient Assessed, Agree with Above Assessment and Plan
[2021-01-26] MEDS: IPRATROPIUM BROM 0.5MG/2.5ML NEB SCH ×2 (15:15→20:00)
[2021-01-26] MEDS ORDERED: IPRATROPIUM BROM 0.5MG/2.5ML ONE (15:47)
[2021-01-26] MEDS: RIVAROXABAN 20 MG TABLET PO SCH (16:37)
[2021-01-26] MEDS: ARFORMOTEROL TARTRATE 15 MCG/2 ML VIAL.NEB NEB SCH (20:00)
[2021-01-26] MEDS: MELATONIN 5 MG TABLET PO SCH (20:50)
[2021-01-27] MEDS: ALBUTEROL 2.5 MG/3 ML NEB SOL IH SCH ×4 (02:20→19:57)
[2021-01-27] MEDS: IPRATROPIUM BROM 0.5MG/2.5ML NEB SCH ×4 (02:20→19:57)
[2021-01-27 05:13] LABS: Absolute Lymphocytes (CBC) 0.5 K/uL (0.7-4.9); Basophils % 0.2 % (0-1.3); Hematocrit 35.7 % (39.6-49.0); Lymphocytes % 3.7 % (15.3-44.8); MPV 9.4 fL (7.6-11.3); RBC Red Blood Cell Count 4.03 M/uL (4.33-5.43)
[2021-01-27 05:37] LABS: Albumin 2.6 g/dL (3.4-5.0); Bilirubin Total 0.8 mg/dL (0.2-1.0); C-Reactive Protein 61.5 mg/L (<3.00); Potassium 4.9 mmol/L (3.5-5.1); Protein, Total 6.8 g/dL (6.4-8.2)
--- NOTE | 2021-01-27 07:20 | RAD REPORT ---
EXAM DESCRIPTION: RAD - Chest Single View - 01/27/2021 7:02 am CLINICAL HISTORY: Respiratory failure COMPARISON: January 26 TECHNIQUE: AP portable chest image was obtained 01/27/2021 7:02 am . FINDINGS: Upper lobe bullous emphysema changes again noted. Bibasilar interstitial and alveolar opac ities are similar to comparison. Heart and vasculature are normal. No measurable pleural effusion and no pneumothorax. No acute bony abnormality seen. No acute aortic findings suspected. IMPRESSION: Stable chest from January 26 imaging.
[2021-01-27] MEDS: ARFORMOTEROL TARTRATE 15 MCG/2 ML VIAL.NEB NEB SCH ×2 (08:00→19:57)
[2021-01-27] MEDS ORDERED: FUROSEMIDE 20 MG/ 2ML VIAL IV ONE (08:29)
[2021-01-27] MEDS: GUAIFENESIN/DM 5 ML UCUP PO PRN ×2 (08:43→17:31)
[2021-01-27] MEDS: FAMOTIDINE 20 MG TAB PO SCH ×2 (08:43→21:00)
[2021-01-27] MEDS: ASPIRIN 81 MG CHEWABLE TABLET PO SCH (08:43)
[2021-01-27] MEDS: THIAMINE 200 MG/2 ML INJ IM SCH (08:43)
[2021-01-27] MEDS: VITAMIN D 5,000 UNIT CAP PO SCH (08:43)
[2021-01-27] MEDS: METHYLPREDNISOLONE 125 MG INJ IV SCH (08:44)
[2021-01-27] MEDS: AMLODIPINE 10 MG TAB PO SCH (08:44)
[2021-01-27] MEDS: METOPROLOL TAR 25 MG TAB PO SCH ×2 (08:44→21:00)
[2021-01-27] MEDS ORDERED: LORAZEPAM 1 MG TABLET PO PRN (08:59)
[2021-01-27] MEDS: HYDROMORPHONE HCL 1 MG/ML INJ IV PRN ×3 (11:35→21:46)
[2021-01-27] MEDS ORDERED: HALOPERIDOL LACT 5 MG/ML INJ IV PRN (11:49)
[2021-01-27] MEDS ORDERED: HALOPERIDOL LACT 5 MG/ML INJ ONE (11:50)
[2021-01-27] MEDS ORDERED: HYDROMORPHONE HCL 1 MG/ML INJ ONE (11:55)
--- NOTE | 2021-01-27 12:05 | P.PN ---
Subjective Date of Service: 01/27/21 Chief Complaint: Respiratory failure Patient suddenly patient suddenly became very combative after 1 mg of p.o. Ativan is very agitated required restraints patient continues to remain hypoxic Review of Systems is unable to be obtained Physical Examination - Vital Signs Temperature: 96.5 F Blood Pressure: 162/78 Pulse: 92 Respirations: 23 Pulse Ox (%): 75 - Physical Exam General: Moderate distress Respiratory: Expiratory wheezes Cardiovascular: No edema, Regular rate/rhythm Assessment & Plan - Problems (Diagnosis) (1) Acute respiratory failure with hypoxia Current Visit: Yes Status: Acute Plan: Respiratory failure trial of Haldol and Dilaudid may have to intubate the patient chemistries reviewed chemistries reviewed reduce dose of Solu-Medrol reduced dose of Solu-Medrol Physician Review: Patient Assessed, Agree with Above Assessment and Plan
--- NOTE | 2021-01-27 14:08 | P.PN ---
Subjective Date of Service: 01/27/21 Chief Complaint: Respiratory failure Patient's respiratory condition is getting worse. He is currently on BiPAP. He was a bit agitated last night. Physical Examination - Vital Signs Temperature: 96.5 F Blood Pressure: 127/59 Pulse: 75 Respirations: 16 Pulse Ox (%): 89 - Physical Exam General: Alert, Mild distress HEENT: Other (BiPAP) Neck: JVD not distended Respiratory: Diminished (Bilateral) Cardiovascular: No edema, Regular rate/rhythm, Normal S1 S2 Gastrointestinal: Soft and benign, Non-distended Musculoskeletal: No swelling Integumentary: No rashes Neurological: Normal strength at 5/5 x4 extr - Studies Microbiology Data (last 24 hrs): 01/22/21 12:20 Blood - Blood Aerobic Blood Culture - Final No growth in 5 days. 01/22/21 12:20 Blood - Blood Anaerobic Blood Culture - Final No growth in 5 days. 01/22/21 12:30 Blood - Blood Aerobic Blood Culture - Final No growth in 5 days. 01/22/21 12:30 Blood - Blood Anaerobic Blood Culture - Final No growth in 5 days. Assessment And Plan - Current Problems (Diagnosis) (1) COPD exacerbation Current Visit: Yes Status: Acute (2) Pneumonia due to COVID-19 virus Current Visit: Yes Status: Acute (3) Acute respiratory failure with hypoxia Current Visit: Yes Status: Acute - Plan Continue IV steroid. Bronchodilator inhalers. Continue antibiotics. Xanax prn for anxiety. Pulmonary is following. Low threshold for intubation. Vitamin supplementation Zinc supplementation. BiPAP and high-flow as needed for now. Start Haldol p.r.n. for agitation. Ativan p.r.n. for anxiety. Physician Review: Patient Assessed, Agree with Above Assessment and Plan
[2021-01-27] MEDS: RIVAROXABAN 20 MG TABLET PO SCH (17:31)
[2021-01-27] MEDS: WATER FOR INJ,STERILE 10 ML IM PRN (19:25)
[2021-01-27] MEDS: ZIPRASIDONE MESYLA 20 MG/VIAL IM PRN (19:25)
[2021-01-27] MEDS: HALOPERIDOL LACT 5 MG/ML INJ IV PRN (19:30)
[2021-01-27] MEDS: MELATONIN 5 MG TABLET PO SCH (21:00)
[2021-01-27] MEDS: THIAMINE 200 MG/2 ML INJ IVP SCH (21:00)
[2021-01-27] MEDS: METHYLPREDNISOLONE 40 MG INJ IV SCH (21:46)
[2021-01-28] MEDS: ALBUTEROL 2.5 MG/3 ML NEB SOL IH SCH ×4 (02:18→19:42)
[2021-01-28] MEDS: IPRATROPIUM BROM 0.5MG/2.5ML NEB SCH ×4 (02:18→19:42)
[2021-01-28] MEDS: HALOPERIDOL LACT 5 MG/ML INJ IV PRN ×4 (03:30→22:05)
[2021-01-28] MEDS: THIAMINE 200 MG/2 ML INJ IVP SCH ×2 (03:58→20:06)
[2021-01-28 04:59] LABS: Absolute Lymphocytes (CBC) 0.4 K/uL (0.7-4.9); Basophils % 0.2 % (0-1.3); Hematocrit 35.9 % (39.6-49.0); Lymphocytes % 2.5 % (15.3-44.8); MPV 9.1 fL (7.6-11.3); RBC Red Blood Cell Count 4.05 M/uL (4.33-5.43)
[2021-01-28] MEDS: HYDROMORPHONE HCL 1 MG/ML INJ IV PRN ×5 (05:00→23:58)
[2021-01-28 05:31] LABS: Blood Morphology Comment NOTED (NOT SEEN); Platelet Estimate ADEQ
[2021-01-28 05:35] LABS: Albumin 2.6 g/dL (3.4-5.0); Bilirubin Total 0.9 mg/dL (0.2-1.0); C-Reactive Protein 34.5 mg/L (<3.00); Potassium 4.7 mmol/L (3.5-5.1); Protein, Total 6.6 g/dL (6.4-8.2)
--- NOTE | 2021-01-28 06:03 | P.PN ---
Date of Service: 01/28/21 Subjective: Yesterday with some confusion/agitation. Worsened after given Ativan. Overnight required PRN xanax/haldol with some improvement pulls mask off at times, restless. Sleeping comfortably this morning, after receiving Haldol and pain medication. ROS: 10 point ROS otherwise negative Physical exam: GEN: resting comfortably, NAD HEENT: Normal conjunctiva, sclera anicteric CV: Regular rate and rhythm, no edema Pulm: mildly labored respirations on CPAP ABD: Soft, nontender, nondistended Integumentary: No rashes Neuro: moving all extremities Problem List Acute hypoxemic respiratory failure secondary to COVID-19 pneumonia Acute on chronic COPD exacerbation Acute delirium /COVID encephalopathy Continue steroids, inhalers Continue antibiotics Pulmonology is followinglow threshold for intubation if patient continues to pull mask and become hypoxic Continue vitamin supplementation BiPAP/high flow as needed Suspect patient's encephalopathy likely component of delirium and COVID encephalopathy Avoid benzodiazepines Continue Haldol, Geodon CRP improving VTE: xarelto Code: full Dispo: continue ICU level of care, guarded prognosis
[2021-01-28] MEDS: ARFORMOTEROL TARTRATE 15 MCG/2 ML VIAL.NEB NEB SCH ×2 (08:00→19:42)
[2021-01-28] MEDS: AMLODIPINE 10 MG TAB PO SCH (09:00)
[2021-01-28] MEDS: FAMOTIDINE 20 MG TAB PO SCH ×2 (09:00→20:11)
[2021-01-28] MEDS: ASPIRIN 81 MG CHEWABLE TABLET PO SCH (09:00)
[2021-01-28] MEDS: METOPROLOL TAR 25 MG TAB PO SCH ×2 (09:00→20:11)
[2021-01-28] MEDS: VITAMIN D 5,000 UNIT CAP PO SCH (09:00)
--- NOTE | 2021-01-28 09:36 | RAD REPORT ---
EXAM DESCRIPTION: RAD - Chest Single View - 01/28/2021 6:48 am CLINICAL HISTORY: Respiratory failure Chest pain. COMPARISON: Chest Single View dated 01/27/2021; Chest Single View dated 01/26/2021; Chest Single Vie w dated 01/22/2021; Chest Pa And Lat (2 Views) dated 06/17/2018 FINDINGS: Portable technique limits examination quality. Bilateral pulmonary opacities are present, without significant change since yesterday's study. The he art is normal in size. No displaced fractures. IMPRESSION: No significant change is seen in bilateral pulmonary opacities since yesterday's study.
[2021-01-28] MEDS: ZIPRASIDONE MESYLA 20 MG/VIAL IM PRN ×2 (09:46→18:45)
[2021-01-28] MEDS: WATER FOR INJ,STERILE 10 ML IM PRN ×2 (09:47→18:45)
[2021-01-28] MEDS: METHYLPREDNISOLONE 40 MG INJ IV SCH ×2 (09:49→20:06)
--- NOTE | 2021-01-28 12:42 | P.PN ---
Subjective Date of Service: 01/28/21 Chief Complaint: Respiratory failure Better today more calm. Still on 80% Fio2 Review of Systems Respiratory: Shortness of Breath Physical Examination - Vital Signs Temperature: 97.8 F Blood Pressure: 131/78 Pulse: 85 Respirations: 17 Pulse Ox (%): 93 - Physical Exam General: Alert, Moderate distress Respiratory: Expiratory wheezes Cardiovascular: No edema, Normal pulses - Studies Microbiology Data (last 24 hrs): 01/22/21 12:20 Blood - Blood Aerobic Blood Culture - Final No growth in 5 days. 01/22/21 12:20 Blood - Blood Anaerobic Blood Culture - Final No growth in 5 days. 01/22/21 12:30 Blood - Blood Aerobic Blood Culture - Final No growth in 5 days. 01/22/21 12:30 Blood - Blood Anaerobic Blood Culture - Final No growth in 5 days. Assessment & Plan - Problems (Diagnosis) (1) Acute respiratory failure with hypoxia Current Visit: Yes Status: Acute Plan: Better today less agitated, Cw Weaning doen on Fio2/chem rev, Poor nutrition Try aneudy/ Zeferino Medeiros Physician Review: Patient Assessed, Agree with Above Assessment and Plan
--- NOTE | 2021-01-28 17:16 | RAD REPORT ---
EXAM DESCRIPTION: RAD - Abdomen 1 View (KUB) - 01/28/2021 11:32 am CLINICAL HISTORY: Dobhoff placement Pain COMPARISON: No comparisons FINDINGS: Tip of the enteric tube is just entering the stomach.
[2021-01-28] MEDS: RIVAROXABAN 20 MG TABLET PO SCH (17:30)
[2021-01-28] MEDS: HYDROCODONE/APAP 5/325 MG TAB PO PRN (20:07)
[2021-01-29] MEDS ORDERED: WATER FOR INJ,STERILE 10 ML ONE (00:09)
[2021-01-29] MEDS: ZIPRASIDONE MESYLA 20 MG/VIAL IM PRN ×3 (00:45→18:16)
[2021-01-29] MEDS: WATER FOR INJ,STERILE 10 ML IM PRN ×3 (00:46→18:16)
[2021-01-29] MEDS: ALBUTEROL 2.5 MG/3 ML NEB SOL IH SCH ×4 (02:13→20:00)
[2021-01-29] MEDS: IPRATROPIUM BROM 0.5MG/2.5ML NEB SCH ×4 (02:13→20:00)
[2021-01-29] MEDS: HYDROMORPHONE HCL 1 MG/ML INJ IV PRN ×3 (04:02→12:25)
[2021-01-29] MEDS: HALOPERIDOL LACT 5 MG/ML INJ IV PRN ×5 (04:02→20:27)
[2021-01-29 05:24] LABS: Hematocrit 34.3 % (39.6-49.0); MPV 9.2 fL (7.6-11.3); RBC Red Blood Cell Count 3.88 M/uL (4.33-5.43)
[2021-01-29 05:51] LABS: C-Reactive Protein 51.1 mg/L (<3.00); Ferritin 1139.3 ng/mL (26-388); Potassium 4.9 mmol/L (3.5-5.1)
--- NOTE | 2021-01-29 06:12 | P.PN ---
Date of Service: 01/29/21 Subjective: Continues with agitation, trying to pull mask off Somewhat improved, nursing states [place] helps, Dilaudid helps. Continue Geodon and Haldol Dobbhoff placed yesterday, tube feeds started slowly ROS: 10 point ROS otherwise negative Physical exam: GEN: resting comfortably, NAD HEENT: Normal conjunctiva, sclera anicteric CV: Regular rate and rhythm while asleep Pulm: mildly labored respirations on CPAP ABD: Soft, nontender, mild distention Integumentary: No rashes Neuro: moving all extremities Problem List Acute hypoxemic respiratory failure secondary to COVID-19 pneumonia Acute on chronic COPD exacerbation Acute delirium /COVID encephalopathy Continue steroids, inhalers Continue antibiotics Pulm is followinglow threshold for intubation if patient continues to pull mask and become hypoxic Continue vitamin supplementation BiPAP/high flow as needed Suspect patient's encephalopathy likely component of delirium and COVID encephalopathy, may be some opioid withdrawal Avoid benzodiazepines Continue Haldol, Geodon, norco, dilaudid VTE: xarelto Code: full Dispo: continue ICU level of care, guarded prognosis Time Spent Managing Pts Care (In Minutes): 35
[2021-01-29] MEDS: HYDROCODONE/APAP 5/325 MG TAB PO PRN ×3 (06:50→20:27)
[2021-01-29] MEDS: ARFORMOTEROL TARTRATE 15 MCG/2 ML VIAL.NEB NEB SCH ×2 (07:34→20:00)
[2021-01-29] MEDS: THIAMINE 200 MG/2 ML INJ IVP SCH ×2 (08:48→20:27)
[2021-01-29] MEDS: ASPIRIN 81 MG CHEWABLE TABLET PO SCH (08:48)
[2021-01-29] MEDS: METHYLPREDNISOLONE 40 MG INJ IV SCH ×2 (08:48→20:26)
[2021-01-29] MEDS: AMLODIPINE 10 MG TAB PO SCH (08:48)
[2021-01-29] MEDS: VITAMIN D 5,000 UNIT CAP PO SCH (08:49)
[2021-01-29] MEDS: FAMOTIDINE 20 MG TAB PO SCH ×2 (08:49→20:27)
[2021-01-29] MEDS: METOPROLOL TAR 25 MG TAB PO SCH ×2 (08:49→20:27)
--- NOTE | 2021-01-29 09:54 | RAD REPORT ---
EXAM DESCRIPTION: RAD - Chest Single View - 01/29/2021 7:10 am CLINICAL HISTORY: Respiratory failure COMPARISON: Abdomen 1 View (KUB) dated 01/28/2021; Chest Single View dated 01/28/2021; Chest Single View dated 01/27/2021; Chest Single View dated 01/26/2021 FINDINGS: Lines: The feeding tube tip overlies the proximal stomach. Lungs: Bilateral lower lung airspace opacities. These are similar to prior . Pleural: No significant pleural effusions or pneumothorax. Cardiac: The heart size is within normal limits. Bones: No acute fractures. Other: IMPRESSION: Similar appearing basilar airspace disease consistent with pneumonia.
--- NOTE | 2021-01-29 11:31 | P.PN ---
Subjective Date of Service: 01/29/21 Chief Complaint: Respiratory failure Improving with Narco, more calm still hypoxic Review of Systems is unable to be obtained Physical Examination - Vital Signs Temperature: 97.3 F Blood Pressure: 163/81 Pulse: 67 Respirations: 9 Pulse Ox (%): 93 - Physical Exam General: Oriented x2, Cooperative Neck: Supple Respiratory: Diminished Assessment & Plan - Problems (Diagnosis) (1) Acute respiratory failure with hypoxia Current Visit: Yes Status: Acute Plan: Doinge better on Narca. TakesNArco at home/ BP elevated /CXRY no change/ on tube feeds/ las reviewed Physician Review: Patient Assessed, Agree with Above Assessment and Plan
[2021-01-29] MEDS ORDERED: HYDROMORPHONE HCL 1 MG/ML INJ IV PRN (12:44)
[2021-01-29] MEDS: HYDROMORPHONE HCL 2 MG/ML inj IV PRN ×2 (15:03→18:21)
[2021-01-29] MEDS: RIVAROXABAN 20 MG TABLET PO SCH (17:37)
[2021-01-29] MEDS: PREGABALIN 75 MG CAP PO SCH (20:27)
[2021-01-30] MEDS: HYDROMORPHONE HCL 2 MG/ML inj IV PRN ×6 (00:06→21:00)
[2021-01-30] MEDS: HALOPERIDOL LACT 5 MG/ML INJ IV PRN ×5 (00:06→20:36)
[2021-01-30] MEDS: IPRATROPIUM BROM 0.5MG/2.5ML NEB SCH ×4 (02:00→19:31)
[2021-01-30] MEDS: ALBUTEROL 2.5 MG/3 ML NEB SOL IH SCH ×4 (02:00→19:31)
[2021-01-30] MEDS: HYDROCODONE/APAP 5/325 MG TAB PO PRN ×4 (02:38→20:36)
[2021-01-30] MEDS: WATER FOR INJ,STERILE 10 ML IM PRN ×3 (02:38→21:02)
[2021-01-30] MEDS: ZIPRASIDONE MESYLA 20 MG/VIAL IM PRN ×4 (02:38→21:00)
[2021-01-30 05:14] LABS: Hematocrit 34.4 % (39.6-49.0); MPV 9.5 fL (7.6-11.3); RBC Red Blood Cell Count 3.83 M/uL (4.33-5.43)
--- NOTE | 2021-01-30 05:48 | P.PN ---
Date of Service: 01/30/21 Subjective: Continues with agitation, requiring PRN meds FiO2 down to 50% yesterday, titrated up to 80% after receiving sedating meds Leukocytosis increasing ROS: 10 point ROS otherwise negative/unobtainable secondary to patient's mental status Physical exam: GEN: Confused, trying to pull mask off HEENT: Normal conjunctiva, sclera anicteric CV: Regular rate and rhythm while asleep Pulm: mildly labored respirations on CPAP ABD: Soft, nontender, no distention Integumentary: No rashes Neuro: moving all extremities Problem List Acute hypoxemic respiratory failure secondary to COVID-19 pneumonia Acute on chronic COPD exacerbation Acute delirium /COVID encephalopathy Continue steroids, inhalers Worsening leukocytosis, overall patient has not been improving, concern for bacterial superinfection. Blood and urine cultures ordered (01/30), start Rocephin empirically Pulm is followinglow threshold for intubation if patient continues to pull mask and become hypoxic Continue vitamin supplementation BiPAP/high flow as needed Dobbhoff placed earlier in the week, tolerating tube feeds, has been several days without a bowel movement. Residual checks have been okay. Start Colace Suspect patient's encephalopathy likely component of delirium and COVID encephalopathy Patient also seems to be uncomfortable. Family reported patient has a long history of severe lower back/leg pain, he was receiving a Lyrica, but then was having too much pain to even make it to his doctor's appointments. Started Lyrica evening of 01/29, CITY BAILIFF reviewed, no opioids or other medications in over a year Avoid benzodiazepines -received several days ago and seem to make the patient worse Continue Carlitos Florentino norco, dilaudid VTE: xarelto Code: full Dispo: continue ICU level of care, guarded prognosis Time Spent Managing Pts Care (In Minutes): 35
[2021-01-30 05:53] LABS: C-Reactive Protein 51.2 mg/L (<3.00); Ferritin 1407.6 ng/mL (26-388); Potassium 5.4 mmol/L (3.5-5.1)
[2021-01-30 06:51] LABS: Urine Appearance CLEAR (Clear); Urine Bilirubin NEGATIVE (Negative); Urine Blood 3+ (Negative); Urine Color DK YELLOW (Yellow); Urine Glucose NEGATIVE (Negative); Urine Microscopic Reflex ORDER UMIC; Urine Protein NEGATIVE (Negative); Urine Specific Gravity 1.025 (1.005-1.030); Urine pH 5.5 (5.0-7.0)
[2021-01-30 06:58] LABS: Urine Bacteria <20 /HPF (NONE SEEN); Urine RBC >50 /HPF (NONE SEEN); Urine Urothelial Cells <5 /HPF (NONE SEEN)
[2021-01-30] MEDS: ARFORMOTEROL TARTRATE 15 MCG/2 ML VIAL.NEB NEB SCH ×2 (07:55→19:31)
[2021-01-30] MEDS: METHYLPREDNISOLONE 40 MG INJ IV SCH ×2 (08:36→20:02)
[2021-01-30] MEDS: ASPIRIN 81 MG CHEWABLE TABLET PO SCH (08:36)
[2021-01-30] MEDS: THIAMINE 200 MG/2 ML INJ IVP SCH ×2 (08:36→20:02)
[2021-01-30] MEDS: FAMOTIDINE 20 MG TAB PO SCH ×2 (08:36→20:02)
[2021-01-30] MEDS: AMLODIPINE 10 MG TAB PO SCH (08:36)
[2021-01-30] MEDS: DOCUSATE NA 100 MG CAP PO SCH ×2 (08:36→20:03)
[2021-01-30] MEDS: METOPROLOL TAR 25 MG TAB PO SCH (08:37)
[2021-01-30] MEDS: VITAMIN D 5,000 UNIT CAP PO SCH (08:37)
[2021-01-30] MEDS: PREGABALIN 75 MG CAP PO SCH ×2 (08:37→20:02)
--- NOTE | 2021-01-30 11:31 | RAD REPORT ---
EXAM DESCRIPTION: RAD - Chest Single View - 01/30/2021 11:04 am CLINICAL HISTORY: f/u covid pneumonia COMPARISON: Chest Single View dated 01/29/2021; Abdomen 1 View (KUB) dated 01/28/2021; Chest Single View dated 01/28/2021; Chest Single View dated 01/27/2021 FINDINGS: Lines: Feeding tube in the proximal stomach is similar. Lungs: Basilar predominant airspace disease is unchanged. Pleural: No significant pleural effusions or pneumothorax. Cardiac: The heart size is within normal limits. Bones: No acute fractures. Other: IMPRESSION: No significant change in basilar predominant airspace disease consistent with pneumonia.
--- NOTE | 2021-01-30 12:58 | P.PN ---
Subjective Date of Service: 01/30/21 Chief Complaint: Respiratory failure No change he remains hypoxic agitated on BiPAP and tube feeds Review of Systems is unable to be obtained Physical Examination - Vital Signs Temperature: 97.0 F Blood Pressure: 109/61 Pulse: 77 Respirations: 10 Pulse Ox (%): 90 - Physical Exam General: Unresponsive Respiratory: Clear to auscultation bilaterally, Diminished Assessment & Plan - Problems (Diagnosis) (1) Acute respiratory failure with hypoxia Current Visit: Yes Status: Acute Plan: Respiratory failure no change still continues to remain very hypoxic on BiPAP and tube feeds patient's white count is elevated renal function slightly worse mild hypernatremia DC nifedipine and metoprolol add Rocephin Physician Review: Patient Assessed, Agree with Above Assessment and Plan
[2021-01-30] MEDS: D5W 1,000 ML IV SCH (13:13)
[2021-01-30] MEDS: CEFTRIAXONE 1 GM/NS 50 ML 1 GM/50 ML BAG IV SCH (17:26)
[2021-01-30] MEDS: RIVAROXABAN 20 MG TABLET PO SCH (17:26)
[2021-01-30] MEDS: VITAL HP 1,000 ML BOT RTH SCH (21:02)
[2021-01-31] MEDS: HYDROMORPHONE HCL 2 MG/ML inj IV PRN ×7 (00:16→19:54)
[2021-01-31] MEDS: HALOPERIDOL LACT 5 MG/ML INJ IV PRN ×4 (00:16→19:54)
[2021-01-31] MEDS: ALBUTEROL 2.5 MG/3 ML NEB SOL IH SCH ×2 (02:22→08:50)
[2021-01-31] MEDS: IPRATROPIUM BROM 0.5MG/2.5ML NEB SCH ×2 (02:22→08:50)
[2021-01-31] MEDS: ZIPRASIDONE MESYLA 20 MG/VIAL IM PRN ×4 (02:52→19:53)
[2021-01-31] MEDS: WATER FOR INJ,STERILE 10 ML IM PRN (02:55)
[2021-01-31] MEDS: HYDROCODONE/APAP 5/325 MG TAB PO PRN ×2 (02:55→08:26)
[2021-01-31] MEDS: D5W 1,000 ML IV SCH (02:55)
[2021-01-31] MEDS: GUAIFENESIN/DM 5 ML UCUP PO PRN (04:02)
[2021-01-31 05:07] LABS: Hematocrit 31.5 % (39.6-49.0); RBC Red Blood Cell Count 3.53 M/uL (4.33-5.43)
--- NOTE | 2021-01-31 05:50 | P.PN ---
Date of Service: 01/31/21 Subjective: No acute events overnight. remains intermittent agitation, still with confusion / encephalopathy no BM, tolerating tube feeds. nursing reports seems to be a little more calm since starting lyrica ROS: 10 point ROS unobtainable secondary to patient's mental status Physical exam: GEN: Confused, mumbles, incoherent HEENT: Normal conjunctiva, sclera anicteric CV: Regular rate and rhythm, no edema Pulm: labored respirations on CPAP, 80-85% FIO2 ABD: Soft, nontender, no distention Integumentary: No rashes Neuro: moving all extremities Problem List Acute hypoxemic respiratory failure secondary to COVID-19 pneumonia Acute on chronic COPD exacerbation Acute delirium /COVID encephalopathy Continue steroids, inhalers Worsening leukocytosis, overall patient has not been improving, concern for bacterial superinfection. Blood and urine cultures ordered (01/30), started Rocephin empirically on 01/30 Pulm is followinglow threshold for intubation if patient continues to pull mask and become hypoxic BiPAP/high flow as needed Dobbhoff placed earlier in the week, tolerating tube feeds, has been several days without a bowel movement. Residual checks have been okay. start miralax daily Suspect patient's encephalopathy likely component of delirium and COVID encephalopathy Patient also seems to be uncomfortable. Family reported patient has a long history of severe lower back/leg pain, he was receiving a Lyrica, but then was having too much pain to even make it to his doctor's appointments. 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 seems to be helping Avoid benzodiazepines -received several days ago and seem to make the patient worse Continue Carlitos Florentino norco, beauaudid VTE: xarelto Code: full Dispo: continue ICU level of care, guarded prognosis Time Spent Managing Pts Care (In Minutes): 35
[2021-01-31 05:51] LABS: Ferritin 1873.5 ng/mL (26-388); Potassium 4.9 mmol/L (3.5-5.1)
[2021-01-31] MEDS: THIAMINE 200 MG/2 ML INJ IVP SCH ×2 (08:25→20:00)
[2021-01-31] MEDS: METHYLPREDNISOLONE 40 MG INJ IV SCH ×2 (08:25→20:00)
[2021-01-31] MEDS: ASPIRIN 81 MG CHEWABLE TABLET PO SCH (08:26)
[2021-01-31] MEDS: PREGABALIN 75 MG CAP PO SCH ×2 (08:26→20:00)
[2021-01-31] MEDS: POLYETHYL GLY 3350 17 GM/DOSE PO SCH (08:26)
[2021-01-31] MEDS: DOCUSATE NA 100 MG CAP PO SCH ×2 (08:26→20:01)
[2021-01-31] MEDS: FAMOTIDINE 20 MG TAB PO SCH ×2 (08:26→20:01)
[2021-01-31] MEDS: VITAMIN D 5,000 UNIT CAP PO SCH (08:26)
[2021-01-31] MEDS: ARFORMOTEROL TARTRATE 15 MCG/2 ML VIAL.NEB NEB SCH ×2 (08:50→19:05)
[2021-01-31] MEDS: CEFTRIAXONE 1 GM/NS 50 ML 1 GM/50 ML BAG IV SCH (08:59)
[2021-01-31] MEDS ORDERED: POLYETHYL GLY 3350 17 GM/DOSE PO PRN (09:00)
--- NOTE | 2021-01-31 12:53 | P.PN ---
Subjective Date of Service: 01/31/21 Chief Complaint: Respiratory failure Patient continues to remain agitated on BiPAP no change Review of Systems is unable to be obtained Physical Examination - Vital Signs Temperature: 98.8 F Blood Pressure: 123/66 Pulse: 76 Respirations: 8 Pulse Ox (%): 91 - Physical Exam General: Unresponsive Assessment & Plan - Problems (Diagnosis) (1) Acute respiratory failure with hypoxia Current Visit: Yes Status: Acute Plan: Respiratory failure white count is declining renal function has improved reduce the rate of IV fluids change albuterol and ipratropium to every 6 as needed Physician Review: Patient Assessed, Agree with Above Assessment and Plan
[2021-01-31] MEDS: RIVAROXABAN 20 MG TABLET PO SCH (16:58)
[2021-01-31] MEDS: ALBUTEROL 2.5 MG/3 ML NEB SOL IH PRN (19:05)
[2021-02-01] MEDS: HYDROMORPHONE HCL 2 MG/ML inj IV PRN ×7 (00:19→22:41)
[2021-02-01] MEDS: HYDROCODONE/APAP 5/325 MG TAB PO PRN ×4 (00:20→22:40)
[2021-02-01] MEDS: HALOPERIDOL LACT 5 MG/ML INJ IV PRN ×6 (00:20→22:42)
[2021-02-01] MEDS: ZIPRASIDONE MESYLA 20 MG/VIAL IM PRN ×4 (02:27→20:30)
[2021-02-01] MEDS ORDERED: HYDROMORPHONE HCL 2 MG/ML inj IV ONE ×2 (02:29→06:15)
[2021-02-01 05:33] LABS: Absolute Lymphocytes (CBC) 0.6 K/uL (0.7-4.9); Basophils % 0.2 % (0-1.3); Hematocrit 32.3 % (39.6-49.0); Lymphocytes % 3.3 % (15.3-44.8); MPV 10.2 fL (7.6-11.3); RBC Red Blood Cell Count 3.61 M/uL (4.33-5.43)
--- NOTE | 2021-02-01 05:46 | P.PN ---
Date of Service: 02/01/21 Subjective: continues with agitation, required extra medication overnight no other significant changes, still requiring high levels of FIO2, BIPAP leukocytosis improved slightly ROS: 10 point ROS unobtainable secondary to patient's mental status Physical exam: GEN: Confused, mumbles, incoherent HEENT: Normal conjunctiva, sclera anicteric CV: Regular rate and rhythm, no edema Pulm: labored respirations on CPAP, 90% FIO2 ABD: Soft, nontender, no distention Integumentary: No rashes Neuro: moving all extremities Problem List Acute hypoxemic respiratory failure secondary to COVID-19 pneumonia Acute on chronic COPD exacerbation Acute delirium /COVID encephalopathy Continue steroids, inhalers Worsening leukocytosis, overall patient has not been improving, concern for bacterial superinfection. Blood and urine cultures ordered (01/30), started Rocephin empirically on 01/30. cultures negative Pulm is followinglow threshold for intubation if patient continues to pull mask and become hypoxic BiPAP/high flow as needed Dobbhoff placed earlier in the week, tolerating tube feeds, has been several days without a bowel movement. Residual checks have been okay. start miralax daily 01/31 Suspect patient's encephalopathy likely component of delirium and COVID encephalopathy Patient also seems to be uncomfortable. Family reported patient has a long history of severe lower back/leg pain, he was receiving a Lyrica, but then was having too much pain to even make it to his doctor's appointments. 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 seems to be helping Avoid benzodiazepines -received several days ago and seem to make the patient worse Continue Carlitos Florentino norco, dilaudid VTE: xarelto Code: full Dispo: continue ICU level of care, guarded prognosis Time Spent Managing Pts Care (In Minutes): 35
[2021-02-01 06:26] LABS: Ferritin 2715.1 ng/mL (26-388); Magnesium 2.5 mg/dL (1.8-2.4); Potassium 5.4 mmol/L (3.5-5.1)
[2021-02-01] MEDS: METHYLPREDNISOLONE 40 MG INJ IV SCH ×2 (09:00→19:52)
[2021-02-01] MEDS: ASPIRIN 81 MG CHEWABLE TABLET PO SCH (09:00)
[2021-02-01] MEDS: POLYETHYL GLY 3350 17 GM/DOSE PO SCH (09:00)
[2021-02-01] MEDS: DOCUSATE NA 100 MG CAP PO SCH (09:00)
[2021-02-01] MEDS: FAMOTIDINE 20 MG TAB PO SCH ×2 (09:00→19:51)
[2021-02-01] MEDS: PREGABALIN 75 MG CAP PO SCH ×2 (09:00→19:51)
[2021-02-01] MEDS: CEFTRIAXONE 1 GM/NS 50 ML 1 GM/50 ML BAG IV SCH (09:00)
[2021-02-01] MEDS: VITAMIN D 5,000 UNIT CAP PO SCH (09:03)
[2021-02-01] MEDS: THIAMINE 200 MG/2 ML INJ IVP SCH ×2 (09:04→19:53)
[2021-02-01 09:22] LABS: Blood Morphology Comment NOT SEEN (NOT SEEN); Platelet Estimate ADEQ; Platelets, Giant FEW PRESENT
[2021-02-01] MEDS: ARFORMOTEROL TARTRATE 15 MCG/2 ML VIAL.NEB NEB SCH ×2 (10:05→20:36)
[2021-02-01] MEDS ORDERED: SOD POLYSTYREN SUL 15 GM/60 ML UCUP PO ONE (11:45)
--- NOTE | 2021-02-01 11:46 | P.PN ---
Subjective Date of Service: 02/01/21 Chief Complaint: Respiratory failure Patient continues to remain agitated is still on 85% FiO2 on tube feeds Review of Systems is unable to be obtained Physical Examination - Vital Signs Temperature: 97.5 F Blood Pressure: 106/59 Pulse: 81 Respirations: 11 Pulse Ox (%): 93 - Physical Exam General: Delirious, Unresponsive Assessment & Plan - Problems (Diagnosis) (1) Acute respiratory failure with hypoxia Current Visit: Yes Status: Acute Plan: Respiratory failure no changes on 85% FiO2. Order to remain agitated delirious white count is declining potassium is little elevated I will give him some Kayexalate Physician Review: Patient Assessed, Agree with Above Assessment and Plan
[2021-02-01] MEDS ORDERED: BISACODYL 10 MG RECTAL SUPP PR ONE (14:10)
[2021-02-01] MEDS: RIVAROXABAN 20 MG TABLET PO SCH (17:38)
--- NOTE | 2021-02-01 18:45 | RAD REPORT ---
EXAM DESCRIPTION: RAD - Abdomen 1 View (KUB) - 02/01/2021 6:23 pm CLINICAL HISTORY: constipation eval Abdominal pain COMPARISON: Abdomen 1 View (KUB) dated 01/28/2021 FINDINGS: Moderate stool volume is seen in the nondilated colon. No distention of the rectum. No sma ll bowel dilatation. No obstruction, free air or pneumatosis. No suspicious calcifications. Feeding tube is in place. The weighted tip is near the GE junction. Very little of the tubing is like ly within the lumen of the stomach. No significant bony findings Imaging and positioning are not optimal. The patient was unable to cooperate with the examination. IMPRESSION: Moderate stool volume in nondilated colon. No large or small bowel obstruction, free air or other emergent finding. Feeding tube tip is near the GE junction with only a small amount of the tip within the lumen of the stomach. Positioning is similar to the January 28 examination.
[2021-02-01] MEDS ORDERED: DOCUSATE NA 100 MG CAP PO SCH (21:00)
[2021-02-02] MEDS: HYDROMORPHONE HCL 2 MG/ML inj IV PRN ×9 (02:17→23:28)
[2021-02-02] MEDS: ZIPRASIDONE MESYLA 20 MG/VIAL IM PRN ×4 (02:24→20:45)
[2021-02-02] MEDS: HYDROCODONE/APAP 5/325 MG TAB PO PRN ×3 (04:56→18:29)
[2021-02-02] MEDS: HALOPERIDOL LACT 5 MG/ML INJ IV PRN ×5 (04:57→23:29)
[2021-02-02 05:36] LABS: Hematocrit 30.7 % (39.6-49.0); MPV 10.2 fL (7.6-11.3); RBC Red Blood Cell Count 3.44 M/uL (4.33-5.43)
--- NOTE | 2021-02-02 05:46 | P.PN ---
Date of Service: 02/02/21 Subjective: Continues to be difficult to manage yesterday, alert, follows basic commands Despite this, he continues to pull off his mask. He seems to understand what is going on but continues to do this Requiring increased doses of medications ROS: 10 point ROS unobtainable secondary to patient's mental status Physical exam: GEN: Confused, mumbles, follows basic commands HEENT: BIPAP in place CV: Sinus tachycardia, no edema Pulm: labored respirations on CPAP, 85% FIO2 ABD: Soft, nontender, no distention Integumentary: No rashes Neuro: moving all extremities Problem List Acute hypoxemic respiratory failure secondary to COVID-19 pneumonia Acute on chronic COPD exacerbation Acute delirium /COVID encephalopathy Continue steroids, inhalers Leukocytosis was worsening last week, concern for bacterial superinfection. Blood and urine cultures (01/30), started Rocephin empirically on 01/30. Cultures negative so far Pulm is followinglow threshold for intubation if patient continues to pull mask and become hypoxic BiPAP/high flow as needed Dobbhoff placed earlier in the week, tolerating tube feeds, has been several days without a bowel movement. Residual checks have been okay. start miralax daily 01/31. BM 02/02 Suspect patient's encephalopathy likely component of delirium and COVID encephalopathy Patient also seems to be uncomfortable. Family reported patient has a long history of severe lower back/leg pain, he was receiving a Lyrica, but then was having too much pain to even make it to his doctor's appointments. 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 seems to be helping Avoid benzodiazepines -received several days ago and seem to make the patient worse Continue Haldol, Geodon, norco, dilaudid; doses titrated VTE: xarelto Code: full Dispo: continue ICU level of care, guarded prognosis Time Spent Managing Pts Care (In Minutes): 35
[2021-02-02 05:53] LABS: Albumin 2.2 g/dL (3.4-5.0); Bilirubin Total 0.9 mg/dL (0.2-1.0); C-Reactive Protein 60.4 mg/L (<3.00); Magnesium 2.4 mg/dL (1.8-2.4); Potassium 5.3 mmol/L (3.5-5.1); Protein, Total 6.3 g/dL (6.4-8.2)
[2021-02-02] MEDS: ARFORMOTEROL TARTRATE 15 MCG/2 ML VIAL.NEB NEB SCH ×2 (08:00→22:05)
[2021-02-02] MEDS: VITAMIN D 5,000 UNIT CAP PO SCH (08:38)
[2021-02-02] MEDS: THIAMINE 200 MG/2 ML INJ IVP SCH ×2 (08:38→19:53)
[2021-02-02] MEDS: ASPIRIN 81 MG CHEWABLE TABLET PO SCH (08:38)
[2021-02-02] MEDS: POLYETHYL GLY 3350 17 GM/DOSE PO SCH (08:38)
[2021-02-02] MEDS: FAMOTIDINE 20 MG TAB PO SCH ×2 (08:39→19:52)
[2021-02-02] MEDS: METHYLPREDNISOLONE 40 MG INJ IV SCH ×2 (08:39→19:53)
[2021-02-02] MEDS: CEFTRIAXONE 1 GM/NS 50 ML 1 GM/50 ML BAG IV SCH (08:42)
[2021-02-02] MEDS: PREGABALIN 75 MG CAP PO SCH ×2 (09:31→19:52)
[2021-02-02] MEDS ORDERED: SOD POLYSTYREN SUL 15 GM/60 ML UCUP PO ONE (11:27)
--- NOTE | 2021-02-02 11:29 | P.PN ---
Subjective Date of Service: 02/02/21 Chief Complaint: Respiratory failure NC delirious Review of Systems is unable to be obtained Physical Examination - Vital Signs Temperature: 97.6 F Blood Pressure: 159/72 Pulse: 91 Respirations: 22 Pulse Ox (%): 95 - Physical Exam General: Other (responsive at time agitated) Respiratory: Clear to auscultation bilaterally, Diminished, Expiratory wheezes Assessment & Plan - Problems (Diagnosis) (1) Acute respiratory failure with hypoxia Current Visit: Yes Status: Acute Plan: Resp failure WBC declining, Hyperkalemia, Kayexalate. High conc ofFio2.labsand meds reviewed/ ABG ordered Physician Review: Patient Assessed, Agree with Above Assessment and Plan
[2021-02-02 14:09] LABS: Arterial Blood Carboxyhemoglob 1.4 % (0-1.5); Blood Gas Oxyhemoglobin 93.3 % (94-97)
[2021-02-02] MEDS: RIVAROXABAN 20 MG TABLET PO SCH (17:04)
[2021-02-02] MEDS: LABETALOL 20 MG/4ML SYRINGE IV PRN (17:06)
[2021-02-02] MEDS: GUAIFENESIN/DM 5 ML UCUP PO PRN (21:22)
[2021-02-02 22:16] LABS: Arterial Blood Carboxyhemoglob 1.3 % (0-1.5); Blood Gas Oxyhemoglobin 84.1 % (94-97); Blood O2 Saturation 86.1 % (92-98.5)
[2021-02-03] MEDS: HYDROCODONE/APAP 5/325 MG TAB PO PRN (01:13)
[2021-02-03] MEDS: HYDROMORPHONE HCL 2 MG/ML inj IV PRN (02:30)
[2021-02-03] MEDS: ZIPRASIDONE MESYLA 20 MG/VIAL IM PRN (02:44)
[2021-02-03] MEDS ORDERED: RSI MEDICATION KIT IV ONE (03:00)
[2021-02-03] MEDS ORDERED: propofoL 500 MG/50 ML ML IV ONE ×2 (03:05→05:51)
[2021-02-03] MEDS ORDERED: NOREPINEPHRINE 4mg/D5W 250mL 4 MG/250 ML BAG IV ONE ×2 (03:07→10:51)
[2021-02-03] MEDS ORDERED: NOREPINEPHRINE 4 MG/4 ML VIAL ONE (03:07)
[2021-02-03] MEDS ORDERED: NA CHLORIDE 0.9% 1,000 ML ONE (03:08)
--- NOTE | 2021-02-03 03:34 | P.PN ---
Date of Service: 02/03/21 Was called by nursing staff for worsening respiratory status. Patient on BiPAP at 100% FiO2 with saturations in the low 80s and respiratory distress. Patient is full code, ED provider was called for emergent intubation. ED provider intubated patient on second pass, saturations never dropped below 80%. Patient with good breath sounds bilaterally, good color metric change on end-tidal device, chest x-ray obtained and pending. Granddaughter Claudine was called and informed of change in patient's clinical condition. At this time patient appears to be doing okay on ventilator with saturations in the mid to high 80s, blood pressure okay at this time as well. We will continue with ICU level of care.
[2021-02-03 05:15] LABS: Hematocrit 32.8 % (39.6-49.0); MPV 10.1 fL (7.6-11.3); RBC Red Blood Cell Count 3.67 M/uL (4.33-5.43)
[2021-02-03 05:43] LABS: Albumin 2.4 g/dL (3.4-5.0); C-Reactive Protein 50.2 mg/L (<3.00); Ferritin 1730.5 ng/mL (26-388); Magnesium 2.4 mg/dL (1.8-2.4); Potassium 4.9 mmol/L (3.5-5.1); Protein, Total 6.7 g/dL (6.4-8.2)
--- NOTE | 2021-02-03 05:50 | P.PN ---
Date of Service: 02/03/21 Subjective: Continued to be agitated, multiple medication only helping temporarily, patient was worsening respiratory distress Intubated overnight. continues with hypoxia hypotension from propofol, placed on levophed ROS: Unable to be obtained, patient intubated Physical exam: GEN: Intubated/sedated HEENT: NG in place CV: Sinus tachycardia, no edema Pulm: on mech ventilation, tachypneic ABD: Soft, no distention Integumentary: No rashes Neuro: sedated Problem List Acute hypoxemic respiratory failure secondary to COVID-19 pneumonia Acute on chronic COPD exacerbation Acute delirium /COVID encephalopathy intubated 02/02 night due to worsening hypoxia Leukocytosis was worsening last week, concern for bacterial superinfection. Blood and urine cultures (01/30), started Rocephin empirically on 01/30. Cultures negative so far. worsening leukocytosis, broadened to merrem/vanc on 02/03 sputum/urine/blood cultures ordered Pulm following Suspect patient's encephalopathy likely component of delirium and COVID encephalopathy Patient also seemed to be uncomfortable. Family reported patient has a long history of severe lower back/leg pain, he was receiving a Lyrica, but then was having too much pain to even make it to his doctor's appointments. 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 seemed to be helping received benzo last week and became more agitated [facility] VTE: xarelto Code: full Dispo: continue ICU level of care, guarded prognosis Time Spent Managing Pts Care (In Minutes): 35
[2021-02-03] MEDS ORDERED: propofoL 1,000 MG/100 ML VIAL IV SCH (06:00)
[2021-02-03 06:11] LABS: Arterial Blood Carboxyhemoglob 1.1 % (0-1.5); Blood Gas Oxyhemoglobin 72.7 % (94-97); Blood O2 Saturation 74.4 % (92-98.5)
[2021-02-03] MEDS: ARFORMOTEROL TARTRATE 15 MCG/2 ML VIAL.NEB NEB SCH ×2 (08:08→20:20)
[2021-02-03] MEDS: ALBUTEROL 2.5 MG/3 ML NEB SOL IH PRN ×3 (08:08→20:20)
[2021-02-03] MEDS: MIDAZOLAM HCL 100 MG in NA CHLORIDE 0.9% 80 ML IV SCH ×2 (08:32→17:53)
[2021-02-03] MEDS: Meropenem 1 GM/100 ML BAG IV SCH ×2 (08:33→17:09)
[2021-02-03 08:37] LABS: Urine Appearance CLOUDY (Clear); Urine Blood NEGATIVE (Negative); Urine Color ORANGE (Yellow); Urine Glucose NEGATIVE (Negative); Urine Protein TRACE (Negative)
[2021-02-03 08:40] LABS: Urine Bilirubin 2+ (Negative); Urine Microscopic Reflex ORDER UMIC
[2021-02-03] MEDS ORDERED: VANCOMYCIN 2 GM in NA CHLORIDE 0.9% 500 ML IVPB ONE (09:00)
[2021-02-03] MEDS ORDERED: VANCOMYCIN 1.75 GM in NA CHLORIDE 0.9% 500 ML IVPB SCH (09:00)
[2021-02-03] MEDS: propofoL 500 MG/50 ML ML IV SCH ×4 (09:04→18:31)
[2021-02-03 09:05] LABS: Urine Bacteria <20 /HPF (NONE SEEN); Urine Coarse Granular Casts 0-5 /LPF (NONE SEEN); Urine Mucus 2+ /HPF (NONE SEEN); Urine RBC <5 /HPF (NONE SEEN)
[2021-02-03] MEDS: POLYETHYL GLY 3350 17 GM/DOSE PO SCH (09:24)
[2021-02-03] MEDS: ASPIRIN 81 MG CHEWABLE TABLET PO SCH (09:24)
[2021-02-03] MEDS: VITAMIN D 5,000 UNIT CAP PO SCH (09:24)
[2021-02-03] MEDS: FAMOTIDINE 20 MG TAB PO SCH ×2 (09:24→20:21)
[2021-02-03] MEDS: METHYLPREDNISOLONE 40 MG INJ IV SCH ×2 (09:25→20:21)
[2021-02-03] MEDS: PREGABALIN 75 MG CAP PO SCH ×2 (09:25→20:21)
[2021-02-03] MEDS: THIAMINE 200 MG/2 ML INJ IVP SCH ×2 (09:26→20:21)
--- NOTE | 2021-02-03 10:05 | RAD REPORT ---
EXAM DESCRIPTION: RAD - Chest Single View - 02/03/2021 9:59 am CLINICAL HISTORY: hypoxia, covid COMPARISON: Chest Single View dated 02/03/2021; Abdomen 1 View (KUB) dated 02/01/2021; Chest Single View dated 01/30/2021; Chest Single View dated 01/29/2021; Chest Angio dated 01/23/2021 FINDINGS: Lines: Endotracheal tube at the top of the aortic arch in satisfactory position. Feeding t ube noted. Lungs: Basilar airspace disease, left greater than right which is similar to prior. This likely repre sents pneumonia. Pleural: No significant pleural effusions or pneumothorax. Cardiac: The heart size is within normal limits. Bones: No acute fractures. Other: IMPRESSION: Unchanged basilar airspace disease consistent with pneumonia. 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
--- NOTE | 2021-02-03 11:53 | P.PN ---
Subjective Date of Service: 02/03/21 Chief Complaint: Respiratory failure Patient's condition worsened he had to be intubated is still very tachypneic unresponsive Review of Systems is unable to be obtained Physical Examination - Vital Signs Temperature: 98.2 F Blood Pressure: 90/68 Pulse: 96 Respirations: 30 Pulse Ox (%): 92 - Physical Exam General: Unresponsive Assessment & Plan - Problems (Diagnosis) (1) Acute respiratory failure with hypoxia Current Visit: Yes Status: Acute Plan: Respiratory failure on a ventilator white count is significantly elevated hypoxic hypercarbic on 100% FiO2 prognosis very poor chest x-ray shows severe Covid labs reviewed add Diflucan labs reviewed Physician Review: Patient Assessed, Agree with Above Assessment and Plan
[2021-02-03] MEDS: FLUCONAZOLE 400 MG IVPB 400 MG/200 ML BAG IV SCH (12:24)
[2021-02-03 12:49] LABS: Arterial Blood Carboxyhemoglob 1.1 % (0-1.5); Blood Gas Oxyhemoglobin 92.6 % (94-97); Blood O2 Saturation 94.6 % (92-98.5)
--- NOTE | 2021-02-03 13:03 | RAD REPORT ---
EXAM DESCRIPTION: RAD - Chest Single View - 02/03/2021 3:10 am CLINICAL HISTORY: 76 years, Male, S/P INTUBATION COMPARISON: None. FINDINGS: Single view of the chest was obtained portable. No prior films are available for compariso n. There is a endotracheal tube at mid clavicular line at approximately 3.6 cm from the ruperto. The heart is not enlarged. The thoracic aorta is normal. Bilateral increased institution airspace opacit ies similar to prior study. The rest of the soft tissue and bony structures demonstrate to be unremar kable. IMPRESSION: Endotracheal tube in good position. Bilateral lower lobe areas of airspace opacities similar to prior study. Electronically signed by: Tera Nuñez MD 02/03/2021 3:20 AM CDT Due to temporary technical issues with the PACS/Fluency reporting system, reports are being signed by the in house radiologist without review as a courtesy to ensure prompt reporting. The interpreting r adiologist is fully responsible for the content of the report.
[2021-02-03] MEDS ORDERED: ETOMIDATE 20 MG/10 ML VIAL IV ONE (14:53)
[2021-02-03] MEDS ORDERED: ROCURONIUM 50 MG/5 ML VIAL IV ONE (14:54)
[2021-02-03] MEDS: NOREPINEPHRINE 4 MG in D5W 250 ML IV SCH ×2 (15:44→18:31)
[2021-02-03] MEDS: RIVAROXABAN 20 MG TABLET PO SCH (17:07)
[2021-02-03] MEDS: VITAL HP 1,000 ML BOT RTH SCH (17:21)
[2021-02-03] MEDS ORDERED: GLUCAGON 1 MG/VIAL IM PRN (17:46)
[2021-02-03] MEDS ORDERED: D50W 25 GM/50 ML SYRINGE IV PRN (17:46)
[2021-02-03] MEDS: INSULIN -REGULAR HUMAN 50 UNIT/0.5 ML ML SQ SCH (18:09)
[2021-02-04] MEDS: Meropenem 1 GM/100 ML BAG IV SCH ×3 (00:04→16:55)
[2021-02-04 05:11] LABS: Hematocrit 31.6 % (39.6-49.0); MPV 10.6 fL (7.6-11.3); RBC Red Blood Cell Count 3.51 M/uL (4.33-5.43)
[2021-02-04 05:24] LABS: Albumin 2.2 g/dL (3.4-5.0); Bilirubin Total 0.6 mg/dL (0.2-1.0); Ferritin 1636.6 ng/mL (26-388); Magnesium 2.6 mg/dL (1.8-2.4); Protein, Total 6.8 g/dL (6.4-8.2)
[2021-02-04] MEDS: INSULIN -REGULAR HUMAN 50 UNIT/0.5 ML ML SQ SCH ×4 (05:41→16:36)
[2021-02-04] MEDS: propofoL 500 MG/50 ML ML IV SCH (06:04)
[2021-02-04] MEDS: NOREPINEPHRINE 4 MG in D5W 250 ML IV SCH (06:10)
[2021-02-04] MEDS ORDERED: NOREPINEPHRINE 4 MG/4 ML VIAL ONE (06:31)
[2021-02-04] MEDS: ARFORMOTEROL TARTRATE 15 MCG/2 ML VIAL.NEB NEB SCH ×2 (08:30→20:00)
[2021-02-04] MEDS: MIDAZOLAM HCL 100 MG in NA CHLORIDE 0.9% 80 ML IV SCH (08:59)
[2021-02-04] MEDS: POLYETHYL GLY 3350 17 GM/DOSE PO SCH (09:00)
[2021-02-04] MEDS: PREGABALIN 75 MG CAP PO SCH ×2 (09:00→20:02)
[2021-02-04] MEDS: THIAMINE 200 MG/2 ML INJ IVP SCH ×2 (09:00→20:02)
[2021-02-04] MEDS: VITAMIN D 5,000 UNIT CAP PO SCH (09:00)
[2021-02-04] MEDS: ASPIRIN 81 MG CHEWABLE TABLET PO SCH (09:01)
[2021-02-04] MEDS: METHYLPREDNISOLONE 40 MG INJ IV SCH ×2 (09:01→20:01)
[2021-02-04] MEDS: FAMOTIDINE 20 MG TAB PO SCH ×2 (09:01→20:02)
[2021-02-04] MEDS: VANCOMYCIN 1.75 GM in NA CHLORIDE 0.9% 500 ML IVPB SCH (09:02)
[2021-02-04] MEDS ORDERED: BISACODYL 10 MG RECTAL SUPP PR ONE (10:17)
--- NOTE | 2021-02-04 12:23 | P.PN ---
Subjective Date of Service: 02/04/21 Chief Complaint: Respiratory failure Patient is stable on mechanical ventilator with FiO2 of 60%. He is sedated with propofol. SaO2 is borderline-89%. No recorded fever. Physical Examination - Vital Signs Temperature: 97.5 F Blood Pressure: 116/93 Pulse: 91 Respirations: 30 Pulse Ox (%): 89 Assessment And Plan - Current Problems (Diagnosis) (1) COPD exacerbation Current Visit: Yes Status: Acute (2) Pneumonia due to COVID-19 virus Current Visit: Yes Status: Acute (3) Acute respiratory failure with hypoxia Current Visit: Yes Status: Acute - Plan Physical exam: GEN: Intubated/sedated HEENT: NG in place CV: Sinus tachycardia, no edema Pulm: on mech ventilation, tachypneic ABD: Soft, no distention. Integumentary: No rashes Neuro: sedated Problem List Acute hypoxemic respiratory failure secondary to COVID-19 pneumonia Acute on chronic COPD exacerbation Acute delirium /COVID encephalopathy He has severe leukocytosis/sepsis Continue IV steroid. Bronchodilator inhalers. Continue IV meropenem and vancomycin. Blood cultures: No growth to date. Sputum culture is growing Gram negative rods. On sedation. Titrate FiO2. Pulmonary is following. Vitamin D and zinc supplementation. Tube feeding. Follow cultures
--- NOTE | 2021-02-04 12:29 | P.PN ---
Subjective Date of Service: 02/04/21 Chief Complaint: Respiratory failure No change no change patient unresponsive tachypneic on a ventilator Review of Systems is unable to be obtained Physical Examination - Vital Signs Temperature: 97.5 F Blood Pressure: 116/93 Pulse: 91 Respirations: 30 Pulse Ox (%): 89 - Physical Exam General: Moderate distress, Unresponsive Assessment & Plan - Problems (Diagnosis) (1) Acute respiratory failure with hypoxia Current Visit: Yes Status: Acute Plan: Respiratory failure no change white count is declining white count is declining patient is on meropenem and vancomycin renal function is slight renal function is worse gram-negative rods and gram-negative rods in the sputum start patient on IV fluids due to worsening renal function patient is on tube feeds daily chest x-rays daily chest x-ray ordered Physician Review: Patient Assessed, Agree with Above Assessment and Plan
[2021-02-04] MEDS: FLUCONAZOLE 400 MG IVPB 400 MG/200 ML BAG IV SCH (12:35)
[2021-02-04] MEDS: NACHLORIDE 0.45% 1,000 ML IV SCH (13:38)
[2021-02-04 15:52] LABS: Arterial Blood Carboxyhemoglob 1.1 % (0-1.5); Blood Gas Oxyhemoglobin 90.3 % (94-97); Blood O2 Saturation 92.3 % (92-98.5)
--- NOTE | 2021-02-04 16:48 | RAD REPORT ---
EXAM DESCRIPTION: RAD - Chest Single View - 02/04/2021 3:06 pm CLINICAL HISTORY: intubated COMPARISON: Portable February 03, CT chest January 23 TECHNIQUE: AP portable chest image was obtained 02/04/2021 3:06 pm . FINDINGS: Endotracheal tube is in place. Tip is at the top of the aortic arch 4 cm above the ruperto. This is adequate positioning stable from prior imaging. Feeding tube is in place. Tip is in the prox imal stomach. Positioning matches prior study. Bullous emphysema changes of the upper lung vicente again noted. Focal consolidation in the right base has not changed. This is a comparatively small infiltrate. The much larger left lower lung field pne umonia has shown substantial clearing since February 03. Heart and vasculature are normal. No measurable pleural effusion and no pneumothorax. No acute bony abnormality seen. No acute aortic findings suspected. Technical malfunctions precluded center sales and service associate dictation. Images with proper report template are only now available for dictation. IMPRESSION: Significant but incomplete clearing of the lower left lung field pneumonia. Right base o pacification not clearly different. Tubes and lines are unchanged as detailed.
[2021-02-04] MEDS: RIVAROXABAN 20 MG TABLET PO SCH (16:55)
[2021-02-04] MEDS: HALOPERIDOL LACT 5 MG/ML INJ IV PRN (22:46)
[2021-02-05] MEDS: HYDROMORPHONE HCL 2 MG/ML inj IV PRN (00:43)
[2021-02-05] MEDS: Meropenem 1 GM/100 ML BAG IV SCH ×3 (01:00→17:08)
[2021-02-05] MEDS ORDERED: DIGOXIN 0.25 MG/ML AMP IV ONE (01:27)
[2021-02-05] MEDS: NACHLORIDE 0.45% 1,000 ML IV SCH ×2 (01:54→15:40)
[2021-02-05 05:03] LABS: Absolute Lymphocytes (CBC) 0.8 K/uL (0.7-4.9); Basophils % 0.3 % (0-1.3); Hematocrit 28.3 % (39.6-49.0); Lymphocytes % 2.4 % (15.3-44.8); MPV 10.7 fL (7.6-11.3); RBC Red Blood Cell Count 3.15 M/uL (4.33-5.43)
[2021-02-05 05:20] LABS: Albumin 1.9 g/dL (3.4-5.0); Bilirubin Total 0.5 mg/dL (0.2-1.0); Protein, Total 6.2 g/dL (6.4-8.2)
[2021-02-05 05:24] LABS: Potassium 5.9 mmol/L (3.5-5.1)
[2021-02-05] MEDS: INSULIN -REGULAR HUMAN 50 UNIT/0.5 ML ML SQ SCH ×4 (06:00→17:08)
--- NOTE | 2021-02-05 07:18 | RAD REPORT ---
[facility] DES[facility] 5:40 am CLINICAL HISTORY: Respiratory failure COMPARISON: February 04, 2021 FINDINGS: Tip of an endotracheal tube lies 14 millimeters above the aortic arch. Lungs are hyperaerated. No significant change in the bilateral pulmonary opacities. Heart is normal size IMPRESSION: No significant change in the bilateral pulmonary opacities probably pneumonia
[2021-02-05] MEDS: ARFORMOTEROL TARTRATE 15 MCG/2 ML VIAL.NEB NEB SCH ×2 (07:45→20:05)
[2021-02-05] MEDS ORDERED: SOD POLYSTYREN SUL 15 GM/60 ML UCUP PO ONE (08:00)
[2021-02-05] MEDS: MIDAZOLAM HCL 100 MG in NA CHLORIDE 0.9% 80 ML IV SCH ×2 (08:28→22:50)
[2021-02-05] MEDS: VANCOMYCIN 1.75 GM in NA CHLORIDE 0.9% 500 ML IVPB SCH (08:29)
[2021-02-05] MEDS: METHYLPREDNISOLONE 40 MG INJ IV SCH ×2 (08:30→20:32)
[2021-02-05] MEDS: VITAL HP 1,000 ML BOT RTH SCH (08:30)
[2021-02-05] MEDS: FAMOTIDINE 20 MG TAB PO SCH ×2 (08:30→20:32)
[2021-02-05] MEDS: THIAMINE 200 MG/2 ML INJ IVP SCH ×2 (08:30→20:32)
[2021-02-05] MEDS: PREGABALIN 75 MG CAP PO SCH (08:30)
[2021-02-05] MEDS: POLYETHYL GLY 3350 17 GM/DOSE PO SCH (08:30)
[2021-02-05] MEDS: VITAMIN D 5,000 UNIT CAP PO SCH (08:30)
[2021-02-05] MEDS: ASPIRIN 81 MG CHEWABLE TABLET PO SCH (08:30)
[2021-02-05 08:45] LABS: Basophilic Stippling 1+; Blood Morphology Comment NOTED (NOT SEEN); Platelet Estimate ADEQ; Polychromasia SLIGHT
[2021-02-05] MEDS: propofoL 500 MG/50 ML ML IV SCH (11:09)
[2021-02-05] MEDS: FLUCONAZOLE 400 MG IVPB 400 MG/200 ML BAG IV SCH (12:00)
--- NOTE | 2021-02-05 12:26 | P.PN ---
Subjective Date of Service: 02/05/21 Chief Complaint: Respiratory failure No change patient is still hypoxic minimally responsive Review of Systems is unable to be obtained Physical Examination - Vital Signs Temperature: 98.8 F Blood Pressure: 119/75 Pulse: 89 Respirations: 30 Pulse Ox (%): 91 - Physical Exam General: Unresponsive Respiratory: Clear to auscultation bilaterally, Rhonchi/gurgles Cardiovascular: No edema, Regular rate/rhythm Assessment & Plan - Problems (Diagnosis) (1) Acute respiratory failure with hypoxia Current Visit: Yes Status: Acute Plan: Respiratory failure oxygen requirements are declining labs shows hyperkalemia worsening LFTs white count is declining Enterobacter isolated from the sputum DC vancomycin chest x-ray reviewed COPD changes the tracheal tube will need to be advanced 1 cm patient is on IV fluid Physician Review: Patient Assessed, Agree with Above Assessment and Plan
--- NOTE | 2021-02-05 14:41 | P.PN ---
Subjective Date of Service: 02/05/21 Chief Complaint: Respiratory failure Patient on mechanical ventilator with FiO2 of 55%. SaO2 is borderline-89%. No recorded fever. Leukocytosis is getting worse. Sputum culture is growing Enterobacter. Blood culture growing Gram positive cocci in pairs and clusters. Physical Examination - Vital Signs Temperature: 98.8 F Blood Pressure: 119/75 Pulse: 89 Respirations: 30 Pulse Ox (%): 91 Assessment And Plan - Current Problems (Diagnosis) (1) COPD exacerbation Current Visit: Yes Status: Acute (2) Pneumonia due to COVID-19 virus Current Visit: Yes Status: Acute (3) Acute respiratory failure with hypoxia Current Visit: Yes Status: Acute - Plan Physical exam: GEN: Intubated/sedated HEENT: NG in place CV: Sinus rhythm, no edema Pulm: on mech ventilation, tachypneic ABD: Soft, no distention. Integumentary: No rashes Neuro: sedated Problem List Acute hypoxemic respiratory failure secondary to COVID-19 pneumonia Acute on chronic COPD exacerbation Acute delirium /COVID encephalopathy He has severe leukocytosis/sepsis Continue IV steroid. Bronchodilator inhalers. Continue IV meropenem and vancomycin. Blood cultures: No growth to date. On sedation. Titrate FiO2. Pulmonary is following. Vitamin D and zinc supplementation. Tube feeding. Follow cultures. Repeat blood culture. Monitor CBC. Prognosis is guarded.
[2021-02-05] MEDS: RIVAROXABAN 20 MG TABLET PO SCH (17:08)
[2021-02-05] MEDS ORDERED: FAMOTIDINE 20 MG/2 ML VIAL IV ONE (20:45)
[2021-02-06] MEDS: Meropenem 1 GM/100 ML BAG IV SCH ×4 (01:00→16:37)
[2021-02-06] MEDS: LABETALOL 20 MG/4ML SYRINGE IV PRN (04:00)
[2021-02-06] MEDS: NACHLORIDE 0.45% 1,000 ML IV SCH ×2 (05:00→17:36)
[2021-02-06 05:18] LABS: Absolute Lymphocytes (CBC) 0.6 K/uL (0.7-4.9); Basophils % 0.5 % (0-1.3); Hematocrit 30.2 % (39.6-49.0); MPV 10.9 fL (7.6-11.3); RBC Red Blood Cell Count 3.35 M/uL (4.33-5.43)
[2021-02-06] MEDS: INSULIN -REGULAR HUMAN 50 UNIT/0.5 ML ML SQ SCH ×5 (05:30→23:53)
[2021-02-06 05:39] LABS: Albumin 1.8 g/dL (3.4-5.0); Bilirubin Total 0.6 mg/dL (0.2-1.0); Potassium 5.3 mmol/L (3.5-5.1); Protein, Total 6.4 g/dL (6.4-8.2)
--- NOTE | 2021-02-06 07:09 | RAD REPORT ---
EXAM DESCRIPTION: Paul Single View02/06/2021 6:56 am CLINICAL HISTORY: Respiratory failure COMPARISON: February 05, 2021 FINDINGS: Endotracheal tube with its tip 14 millimeters above aortic arch Mild worsening in the left and no significant change right pulmonary opacities Heart is normal size. A feeding tube lies within proximal stomach IMPRESSION: Mild worsening in the left and no significant change right pulmonary opacities
[2021-02-06] MEDS: ARFORMOTEROL TARTRATE 15 MCG/2 ML VIAL.NEB NEB SCH ×2 (08:00→19:45)
[2021-02-06] MEDS ORDERED: SOD POLYSTYREN SUL 15 GM/60 ML UCUP PO ONE (08:32)
[2021-02-06] MEDS: POLYETHYL GLY 3350 17 GM/DOSE PO SCH (09:00)
[2021-02-06] MEDS: ASPIRIN 81 MG CHEWABLE TABLET PO SCH (09:31)
[2021-02-06] MEDS: FAMOTIDINE 20 MG TAB PO SCH ×2 (09:31→20:21)
[2021-02-06] MEDS: FLUCONAZOLE 100 MG TAB PO SCH (09:31)
[2021-02-06] MEDS: THIAMINE 200 MG/2 ML INJ IVP SCH ×2 (09:32→20:20)
[2021-02-06] MEDS: METHYLPREDNISOLONE 40 MG INJ IV SCH ×2 (09:32→20:20)
[2021-02-06] MEDS: VITAL HP 1,000 ML BOT RTH SCH (09:35)
[2021-02-06] MEDS: VITAMIN D 5,000 UNIT CAP PO SCH (10:11)
--- NOTE | 2021-02-06 12:22 | P.PN ---
Subjective Date of Service: 02/06/21 Chief Complaint: Respiratory failure Patient continues to remain unresponsive and requirements have declined Review of Systems is unable to be obtained Physical Examination - Vital Signs Temperature: 99.4 F Blood Pressure: 128/81 Pulse: 80 Respirations: 22 Pulse Ox (%): 92 - Physical Exam General: Unresponsive Assessment & Plan - Problems (Diagnosis) (1) Acute respiratory failure with hypoxia Current Visit: Yes Status: Acute Plan: Respiratory failure oxygen requirements are declining only on 55% FiO2 he still comes continues to remain unresponsive liver function tests have worsened hyperkalemic repeat dose of Kayexalate white count is stable renal function is improving continue with IV fluids for now chest x-ray no change gnosis poor Physician Review: Patient Assessed, Agree with Above Assessment and Plan
--- NOTE | 2021-02-06 13:10 | P.PN ---
Subjective Date of Service: 02/06/21 Chief Complaint: Respiratory failure Patient on mechanical ventilator with FiO2 of 55%. No new changes. No recorded fever. Leukocytosis now trending down. Sputum culture is growing Enterobacter. Blood culture growing coagulase negative Staph. Physical Examination - Vital Signs Temperature: 99.4 F Blood Pressure: 128/81 Pulse: 80 Respirations: 22 Pulse Ox (%): 92 Assessment And Plan - Current Problems (Diagnosis) (1) COPD exacerbation Current Visit: Yes Status: Acute (2) Pneumonia due to COVID-19 virus Current Visit: Yes Status: Acute (3) Acute respiratory failure with hypoxia Current Visit: Yes Status: Acute - Plan Physical exam: GEN: Intubated/sedated HEENT: NGT CV: Sinus rhythm, no edema Pulm: on mech ventilation, tachypneic, paradoxical abdominal movement this morning. ABD: Soft, no distention. Integumentary: No rashes Neuro: sedated Problem List Acute hypoxemic respiratory failure secondary to COVID-19 pneumonia Acute on chronic COPD exacerbation Acute delirium /COVID encephalopathy He has severe leukocytosis/sepsis Continue IV steroid. Bronchodilator inhalers. Continue IV meropenem and vancomycin. Blood cultures: Coagulase negative Staph. Likely a skin contaminant. Repeat blood cultures is pending. On sedation. Titrate FiO2. Pulmonary is following. Vitamin D and zinc supplementation. Tube feeding. Follow cultures. Monitor CBC. Prognosis is guarded.
[2021-02-06] MEDS: HYDROMORPHONE HCL 2 MG/ML inj IV PRN (16:31)
[2021-02-06] MEDS: RIVAROXABAN 20 MG TABLET PO SCH ×2 (16:35→17:35)
[2021-02-06] MEDS: HYDROCODONE/APAP 5/325 MG TAB PO PRN (20:20)
[2021-02-07] MEDS: Meropenem 1 GM/100 ML BAG IV SCH ×3 (03:00→16:50)
[2021-02-07] MEDS: HYDROMORPHONE HCL 2 MG/ML inj IV PRN ×4 (05:25→20:38)
[2021-02-07] MEDS: INSULIN -REGULAR HUMAN 50 UNIT/0.5 ML ML SQ SCH ×3 (05:38→18:21)
[2021-02-07 05:49] LABS: Arterial Blood Carboxyhemoglob 1.3 % (0-1.5); Blood Gas Oxyhemoglobin 90.3 % (94-97); Blood O2 Saturation 92.7 % (92-98.5)
[2021-02-07 05:56] LABS: Absolute Lymphocytes (CBC) 1.2 K/uL (0.7-4.9); Basophils % 0.5 % (0-1.3); Hematocrit 28.9 % (39.6-49.0); Lymphocytes % 3.4 % (15.3-44.8); MPV 10.4 fL (7.6-11.3); RBC Red Blood Cell Count 3.21 M/uL (4.33-5.43)
[2021-02-07 06:24] LABS: Albumin 1.9 g/dL (3.4-5.0); Bilirubin Total 0.6 mg/dL (0.2-1.0); Potassium 4.6 mmol/L (3.5-5.1); Protein, Total 6.3 g/dL (6.4-8.2)
--- NOTE | 2021-02-07 07:15 | RAD REPORT ---
EXAM DESCRIPTION: RAD - Chest Single View - 02/07/2021 5:58 am CLINICAL HISTORY: Respiratory failure COMPARISON: February 06 TECHNIQUE: AP portable chest image was obtained 02/07/2021 5:58 am . FINDINGS: Endotracheal tube in place with the tip top of the aortic arch 4 cm above the ruperto. This is adequate positioning. Feeding tube is in place extending below the diaphragm. Tip is in close pro ximity to the GE junction but is not adequately visualized on the chest examination. Interstitial and scattered alveolar opacities are present in each lung base, left greater than right. Pattern is not significantly different from comparison. Heart and vasculature are normal. No measurable pleural effusion and no pneumothorax. No acute bony abnormality seen. No acute aortic findings suspected. IMPRESSION: Stable portable chest as detailed. Feeding tube tip is near the GE junction but is not optimally visualized on this chest examination.
[2021-02-07] MEDS: ARFORMOTEROL TARTRATE 15 MCG/2 ML VIAL.NEB NEB SCH ×2 (08:00→23:10)
[2021-02-07] MEDS: VITAMIN D 5,000 UNIT CAP PO SCH (08:18)
[2021-02-07] MEDS: FLUCONAZOLE 100 MG TAB PO SCH (08:18)
[2021-02-07] MEDS: METHYLPREDNISOLONE 40 MG INJ IV SCH ×2 (08:18→20:25)
[2021-02-07] MEDS: THIAMINE 200 MG/2 ML INJ IVP SCH ×2 (08:18→20:24)
[2021-02-07] MEDS: POLYETHYL GLY 3350 17 GM/DOSE PO SCH (08:19)
[2021-02-07] MEDS: ASPIRIN 81 MG CHEWABLE TABLET PO SCH (08:19)
[2021-02-07] MEDS: FAMOTIDINE 20 MG TAB PO SCH ×2 (08:19→20:24)
[2021-02-07] MEDS: ALBUTEROL 2.5 MG/3 ML NEB SOL IH PRN (08:53)
--- NOTE | 2021-02-07 14:06 | P.PN ---
Subjective Date of Service: 02/07/21 Chief Complaint: Respiratory failure Patient on mechanical ventilator with FiO2 of 50%. No change in mental status. No recorded fever. Patient still with severe leukocytosis. Physical Examination - Vital Signs Temperature: 96.7 F Blood Pressure: 141/72 Pulse: 68 Respirations: 24 Pulse Ox (%): 90 Assessment And Plan - Current Problems (Diagnosis) (1) COPD exacerbation Current Visit: Yes Status: Acute (2) Pneumonia due to COVID-19 virus Current Visit: Yes Status: Acute (3) Acute respiratory failure with hypoxia Current Visit: Yes Status: Acute - Plan Physical exam: GEN: Intubated/sedated HEENT: NGT CV: Sinus rhythm, no edema Pulm: on mech ventilation, tachypneic, ABD: Soft, no distention. Integumentary: No rashes Neuro: sedated Problem List Acute hypoxemic respiratory failure secondary to COVID-19 pneumonia Acute on chronic COPD exacerbation Acute delirium /COVID encephalopathy He has severe leukocytosis/sepsis Continue IV steroid. Bronchodilator inhalers. Continue IV meropenem. Vancomycin discontinued. Blood cultures: Coagulase negative Staph. Likely a skin contaminant. Repeat blood cultures: No growth to date. On sedation. Pulmonary is following. LFT improved initially but worse today. No hypotension. Elevated LFT likely related to sepsis. Alkaline-phosphatase mildly elevated, normal bilirubin suggest no biliary obstruction. Monitor LFT Continue Vitamin D and zinc supplementation. Tube feeding. Follow cultures. Monitor CBC. Prognosis is guarded.
--- NOTE | 2021-02-07 17:04 | P.PN ---
Subjective Date of Service: 02/07/21 Chief Complaint: Respiratory failure No change unresponsive Review of Systems is unable to be obtained Physical Examination - Vital Signs Temperature: 99.8 F Blood Pressure: 177/97 Pulse: 75 Respirations: 35 Pulse Ox (%): 90 - Physical Exam General: Unresponsive Assessment & Plan - Problems (Diagnosis) (1) Acute respiratory failure with hypoxia Current Visit: Yes Status: Acute Plan: Respiratory failure patient is comatose elevated white count liver function tests are slightly worse next he percent FiO2 tolerating tube feeds prognosis poor discussed with relatives regarding DNR and withdrawal of care Physician Review: Patient Assessed, Agree with Above Assessment and Plan
--- NOTE | 2021-02-07 22:00 | RAD REPORT ---
EXAM DESCRIPTION: RAD - Chest Single View - 02/07/2021 9:54 pm CLINICAL HISTORY: picc placement FINDINGS: Portable chest was obtained following placement of a right upper extremity PICC line. The catheter tip projects over the SVC.
[2021-02-08] MEDS: Meropenem 1 GM/100 ML BAG IV SCH ×3 (00:03→17:23)
[2021-02-08] MEDS: INSULIN -REGULAR HUMAN 50 UNIT/0.5 ML ML SQ SCH ×4 (00:03→17:24)
[2021-02-08] MEDS: HYDROMORPHONE HCL 2 MG/ML inj IV PRN ×3 (03:50→15:12)
[2021-02-08 05:55] LABS: Absolute Lymphocytes (CBC) 0.9 K/uL (0.7-4.9); Basophils % 0.3 % (0-1.3); Hematocrit 30.3 % (39.6-49.0); MPV 10.9 fL (7.6-11.3)
[2021-02-08 06:28] LABS: Albumin 2.1 g/dL (3.4-5.0); Bilirubin Total 0.7 mg/dL (0.2-1.0); C-Reactive Protein 14.6 mg/L (<3.00); Protein, Total 6.5 g/dL (6.4-8.2)
[2021-02-08 07:23] LABS: Ferritin 1523.4 ng/mL (26-388)
[2021-02-08] MEDS: ARFORMOTEROL TARTRATE 15 MCG/2 ML VIAL.NEB NEB SCH ×2 (07:45→19:30)
[2021-02-08] MEDS: POLYETHYL GLY 3350 17 GM/DOSE PO SCH (08:16)
[2021-02-08] MEDS: METHYLPREDNISOLONE 40 MG INJ IV SCH ×2 (08:16→20:25)
[2021-02-08] MEDS: FLUCONAZOLE 100 MG TAB PO SCH (08:16)
[2021-02-08] MEDS: THIAMINE 200 MG/2 ML INJ IVP SCH ×2 (08:16→20:25)
[2021-02-08] MEDS: VITAMIN D 5,000 UNIT CAP PO SCH (08:17)
[2021-02-08] MEDS: ASPIRIN 81 MG CHEWABLE TABLET PO SCH (08:17)
[2021-02-08] MEDS: FAMOTIDINE 20 MG TAB PO SCH ×2 (08:17→20:25)
--- NOTE | 2021-02-08 08:42 | RAD REPORT ---
EXAM DESCRIPTION: RAD - Chest Single View - 02/08/2021 6:27 am CLINICAL HISTORY: Respiratory failure COMPARISON: Chest Single View dated 02/07/2021; Chest Single View dated 02/07/2021; Chest Single Vie w dated 02/06/2021; Chest Single View dated 02/05/2021; Abdomen 1 View (KUB) dated 02/01/2021 FINDINGS: Lines: Right subclavian approach PICC with tip overlying the SVC. Endotracheal tube at the aortic arch. Weighted feeding tube terminates just in the proximal stomach. This is similar to prior . Lungs: Basilar airspace disease which is slightly worsened at the right lung base. Pleural: No significant pleural effusions or pneumothorax. Cardiac: The heart size is within normal limits. Bones: No acute fractures. Other: IMPRESSION: Predominantly basilar airspace disease, slightly worsened at the right lung base compare d with prior .
--- NOTE | 2021-02-08 10:33 | P.PN ---
Subjective Date of Service: 02/08/21 Chief Complaint: Respiratory failure No change unresponsive pupils not responding Physical Examination - Vital Signs Temperature: 99.8 F Blood Pressure: 177/97 Pulse: 75 Respirations: 35 Pulse Ox (%): 90 Assessment & Plan - Problems (Diagnosis) (1) Acute respiratory failure with hypoxia Current Visit: Yes Status: Acute Plan: Patient looks worse is not responding count is also worse discussed with the son regarding DNR and withdrawal of care chest x-ray no change FiO2 60% Physician Review: Patient Assessed, Agree with Above Assessment and Plan
[2021-02-08 11:13] LABS: Blood Morphology Comment NOT SEEN (NOT SEEN); Platelet Estimate ADEQ
--- NOTE | 2021-02-08 12:21 | P.PN ---
Subjective Date of Service: 02/08/21 Chief Complaint: Respiratory failure Patient on mechanical ventilator with FiO2 of 60%. Unresponsive No recorded fever. Leukocytosis getting worse. Physical Examination - Vital Signs Temperature: 99.8 F Blood Pressure: 145/74 Pulse: 79 Respirations: 27 Pulse Ox (%): 94 Assessment And Plan - Current Problems (Diagnosis) (1) COPD exacerbation Current Visit: Yes Status: Acute (2) Pneumonia due to COVID-19 virus Current Visit: Yes Status: Acute (3) Acute respiratory failure with hypoxia Current Visit: Yes Status: Acute - Plan Physical exam: GEN: Intubated, unresponsive. Generalized edema. HEENT: NGT, ETT CV: Sinus rhythm, no edema Pulm: on mech ventilation, tachypneic, ABD: Soft, no distention. Integumentary: No rashes Neuro: sedated Problem List Acute hypoxemic respiratory failure secondary to COVID-19 pneumonia Acute on chronic COPD exacerbation Acute delirium /COVID encephalopathy He has severe leukocytosis/sepsis Continue IV steroid. Bronchodilator inhalers. Continue IV meropenem. Vancomycin discontinued. Blood cultures: Coagulase negative Staph. Likely a skin contaminant. Repeat blood cultures: No growth to date. Pulmonary is following. LFT improved initially but now elevated again. Blood pressure has been stable. Elevated LFT likely related to sepsis. Alkaline-phosphatase mildly elevated, normal bilirubin suggest no biliary obstruction. Continue Vitamin D and zinc supplementation. Tube feeding. Monitor CBC and CMP. Poor prognosis. On Xarelto for DVT prophylaxis. Hemoglobin has been stable. Left lower extremity noted to feel cold compared to the right. Venous Doppler ordered to assess for DVT. Physician Review: Patient Assessed, Agree with Above Assessment and Plan
[2021-02-08 13:00] LABS: Magnesium 3.2 mg/dL (1.8-2.4); Phosphorus 3.8 mg/dL (2.5-4.9)
[2021-02-08] MEDS: LABETALOL 20 MG/4ML SYRINGE IV PRN (13:15)
[2021-02-08] MEDS: ACETAMINOPHEN 500 MG TAB PO PRN (15:03)
[2021-02-08] MEDS: RIVAROXABAN 20 MG TABLET PO SCH (17:23)
[2021-02-08] MEDS ORDERED: HYDROMORPHONE HCL 1 MG/ML INJ ONE (23:39)
[2021-02-09] MEDS: Meropenem 1 GM/100 ML BAG IV SCH ×3 (00:29→18:08)
[2021-02-09] MEDS ORDERED: HYDROMORPHONE HCL 1 MG/ML INJ ONE (04:11)
[2021-02-09] MEDS: INSULIN -REGULAR HUMAN 50 UNIT/0.5 ML ML SQ SCH ×4 (05:20→18:00)
[2021-02-09 05:35] LABS: Absolute Lymphocytes (CBC) 0.7 K/uL (0.7-4.9); Basophils % 0.3 % (0-1.3); Hematocrit 31.5 % (39.6-49.0); Lymphocytes % 1.5 % (15.3-44.8); MPV 10.5 fL (7.6-11.3); RBC Red Blood Cell Count 3.43 M/uL (4.33-5.43)
[2021-02-09] MEDS: ARFORMOTEROL TARTRATE 15 MCG/2 ML VIAL.NEB NEB SCH ×2 (07:45→20:00)
[2021-02-09 08:05] LABS: Albumin 2.1 g/dL (3.4-5.0); Bilirubin Total 0.9 mg/dL (0.2-1.0); C-Reactive Protein 10.3 mg/L (<3.00); Protein, Total 6.4 g/dL (6.4-8.2)
[2021-02-09 08:12] LABS: Potassium 5.9 mmol/L (3.5-5.1)
[2021-02-09] MEDS: FAMOTIDINE 20 MG TAB PO SCH ×2 (08:39→20:07)
[2021-02-09] MEDS: ENOXAPARIN 100 MG/ML SYR SQ SCH ×2 (08:39→20:07)
[2021-02-09] MEDS: POLYETHYL GLY 3350 17 GM/DOSE PO SCH (08:39)
[2021-02-09] MEDS: ASPIRIN 81 MG CHEWABLE TABLET PO SCH (08:40)
[2021-02-09] MEDS: METHYLPREDNISOLONE 40 MG INJ IV SCH ×2 (08:40→20:07)
[2021-02-09] MEDS: VITAMIN D 5,000 UNIT CAP PO SCH (08:40)
[2021-02-09] MEDS: FLUCONAZOLE 100 MG TAB PO SCH (08:40)
[2021-02-09] MEDS: THIAMINE 200 MG/2 ML INJ IVP SCH ×2 (08:40→20:07)
[2021-02-09] MEDS: LABETALOL 20 MG/4ML SYRINGE IV PRN (08:40)
[2021-02-09] MEDS ORDERED: VANCOMYCIN 2.5 GM in NA CHLORIDE 0.9% 500 ML IVPB SCH (09:00)
[2021-02-09] MEDS ORDERED: SOD POLYSTYREN SUL 15 GM/60 ML UCUP FT ONE ×3 (09:42→22:07)
--- NOTE | 2021-02-09 10:51 | P.PN ---
Subjective Date of Service: 02/09/21 Chief Complaint: Respiratory failure Patient on mechanical ventilator with FiO2 of 50%. Unresponsive No recorded fever. Marked leukocytosis Physical Examination - Vital Signs Temperature: 99.6 F Blood Pressure: 130/83 Pulse: 78 Respirations: 22 Pulse Ox (%): 94 Assessment And Plan - Current Problems (Diagnosis) (1) COPD exacerbation Current Visit: Yes Status: Acute (2) Pneumonia due to COVID-19 virus Current Visit: Yes Status: Acute (3) Acute respiratory failure with hypoxia Current Visit: Yes Status: Acute - Plan Physical exam: GEN: Intubated, unresponsive. Generalized edema. HEENT: NGT, ETT CV: Sinus rhythm, no edema Pulm: on mech ventilation, tachypneic, ABD: Soft, no distention. Integumentary: No rashes Neuro: sedated Problem List Acute hypoxemic respiratory failure secondary to COVID-19 pneumonia Acute on chronic COPD exacerbation Acute delirium /COVID encephalopathy He has severe leukocytosis/sepsis Continue IV steroid. Bronchodilator inhalers. Leukocytosis still getting worse despite aggressive antibiotic therapy with IV meropenem. Blood cultures: Coagulase negative Staph. Likely a skin contaminant. Repeat blood cultures: No growth to date. Pulmonary is following. LFT fluctuating. Blood pressure also fluctuating Normal bilirubin suggest no biliary obstruction. Continue Vitamin D and zinc supplementation. Tube feeding. Monitor CBC and CMP. Poor prognosis. On Xarelto for DVT prophylaxis. Hemoglobin has been stable. Lower extremity venous Doppler is pending.
--- NOTE | 2021-02-09 11:29 | RAD REPORT ---
EXAM DESCRIPTION: RAD - Chest Single View - 02/09/2021 6:32 am CLINICAL HISTORY: Respiratory failure Chest pain. COMPARISON: Chest Single View dated 02/08/2021; Chest Single View dated 02/07/2021; Chest Single Vie w dated 02/07/2021; Chest Single View dated 02/06/2021 FINDINGS: Portable technique limits examination quality. Emphysematous changes are present throughout the lungs. Basilar lung opacities have mildly improved s job the prior study. Tip of the endotracheal tube is at the level of the superior aortic arch. Enter ic tube descends into the stomach. Right-sided PICC line has tip in the SVC. IMPRESSION: Mild improvement in basilar lung aeration is seen since the comparative study.
--- NOTE | 2021-02-09 11:40 | RAD REPORT ---
EXAM DESCRIPTION: US - Extremity Venous Uni Ltd - 02/08/2021 10:34 pm CLINICAL HISTORY: Concern for DVT Leg swelling and edema. COMPARISON: No comparisons FINDINGS: Right lower extremity venous system was interrogated with Doppler technique. Normal flow, compressibility and augmentation was noted. There is no DVT present. IMPRESSION: No evidence of right lower extremity deep venous thrombosis.
[2021-02-09] MEDS: HYDROMORPHONE HCL 2 MG/ML inj IV PRN ×2 (12:16→18:22)
[2021-02-09 12:34] LABS: Magnesium 2.9 mg/dL (1.8-2.4); Phosphorus 3.6 mg/dL (2.5-4.9)
[2021-02-09 20:34] LABS: Ferritin 1708.3 ng/mL (26-388)
[2021-02-10] MEDS: Meropenem 1 GM/100 ML BAG IV SCH ×3 (00:19→17:00)
[2021-02-10] MEDS: HYDROMORPHONE HCL 2 MG/ML inj IV PRN ×5 (02:12→22:00)
[2021-02-10] MEDS: VANCOMYCIN 1.75 GM in NA CHLORIDE 0.9% 500 ML IVPB SCH ×2 (02:16→20:49)
[2021-02-10 04:54] LABS: Absolute Lymphocytes (CBC) 0.6 K/uL (0.7-4.9); Basophils % 0.3 % (0-1.3); Hematocrit 29.3 % (39.6-49.0); Lymphocytes % 1.7 % (15.3-44.8); RBC Red Blood Cell Count 3.13 M/uL (4.33-5.43)
[2021-02-10 05:45] LABS: ALT/SGPT 679 U/L (12-78); AST/SGOT 216 U/L (15-37); Albumin 1.8 g/dL (3.4-5.0); Alkaline Phosphatase 165 U/L (45-117); BUN Blood Urea Nitrogen 63 mg/dL (7-18); Bicarbonate 33 mmol/L (21-32); Bilirubin Total 0.9 mg/dL (0.2-1.0); C-Reactive Protein 9.68 mg/L (<3.00); Ferritin 1422.9 ng/mL (26-388); Glucose Level 214 mg/dL (74-106); Potassium 5.1 mmol/L (3.5-5.1); Protein, Total 5.5 g/dL (6.4-8.2); Sodium Level 142 mmol/L (136-145)
[2021-02-10] MEDS: INSULIN -REGULAR HUMAN 50 UNIT/0.5 ML ML SQ SCH ×4 (06:00→17:27)
[2021-02-10] MEDS: ARFORMOTEROL TARTRATE 15 MCG/2 ML VIAL.NEB NEB SCH ×2 (07:20→20:45)
[2021-02-10] MEDS: ENOXAPARIN 100 MG/ML SYR SQ SCH (08:31)
[2021-02-10] MEDS: FLUCONAZOLE 100 MG TAB PO SCH (08:32)
[2021-02-10] MEDS: ASPIRIN 81 MG CHEWABLE TABLET PO SCH (08:32)
[2021-02-10] MEDS: POLYETHYL GLY 3350 17 GM/DOSE PO SCH (08:32)
[2021-02-10] MEDS: FAMOTIDINE 20 MG TAB PO SCH ×2 (08:32→20:46)
[2021-02-10] MEDS: METHYLPREDNISOLONE 40 MG INJ IV SCH ×2 (08:32→20:46)
[2021-02-10] MEDS: VITAMIN D 5,000 UNIT CAP PO SCH (08:32)
[2021-02-10] MEDS: THIAMINE 200 MG/2 ML INJ IVP SCH ×2 (08:32→20:46)
--- NOTE | 2021-02-10 09:12 | RAD REPORT ---
EXAM DESCRIPTION: RAD - Chest Single View - 02/10/2021 5:13 am CLINICAL HISTORY: Respiratory failure Chest pain. COMPARISON: Chest Single View dated 02/09/2021; Chest Single View dated 02/08/2021; Chest Single Vie w dated 02/07/2021; Chest Single View dated 02/07/2021 FINDINGS: Portable technique limits examination quality. Tip of the enteric tube is at the level of the superior aortic arch. Enteric tube tip descends in the stomach. Right-sided PICC line has tip in the SVC. Emphysematous changes are present with mild worse refugio of bibasilar lung opacities, more no significant on the left.The heart is normal in size. IMPRESSION: Mild worsening in bibasilar lung aeration is seen since comparative study.
[2021-02-10] MEDS: LABETALOL 20 MG/4ML SYRINGE IV PRN ×2 (09:24→22:09)
--- NOTE | 2021-02-10 12:31 | P.PN ---
Subjective Date of Service: 02/10/21 Chief Complaint: Respiratory failure The patient is studied more responsive artery opening his eyes respiratory failure tachypneic Review of Systems is unable to be obtained Physical Examination - Vital Signs Temperature: 97 F Blood Pressure: 100/84 Pulse: 74 Respirations: 30 Pulse Ox (%): 97 - Physical Exam General: Other (Opening eyes) Respiratory: Clear to auscultation bilaterally, Diminished Cardiovascular: Edema (Significant bilateral edema) Assessment & Plan - Problems (Diagnosis) (1) Acute respiratory failure with hypoxia Current Visit: Yes Status: Acute Plan: Respiratory failure on 50% FiO2 UB more responsive today white count is declining patient is a narrower min vancomycin is no evidence of DVT may be encephalopathic on the iraheta virus infection would check ammonia level white count is declining chest successes shows COPD changes with bilateral interstitial infiltrates change back to Eliquis prognosis is poor consider Ltac primary no known his oxygen Physician Review: Patient Assessed, Agree with Above Assessment and Plan
[2021-02-10 13:50] LABS: Magnesium 2.7 mg/dL (1.8-2.4); Phosphorus 4.6 mg/dL (2.5-4.9)
--- NOTE | 2021-02-10 14:22 | P.PN ---
Subjective Date of Service: 02/10/21 Chief Complaint: Respiratory failure Patient on mechanical ventilator with FiO2 of 50%. Unresponsive. No new changes Marked leukocytosis Physical Examination - Vital Signs Temperature: 97 F Blood Pressure: 100/84 Pulse: 74 Respirations: 30 Pulse Ox (%): 97 Assessment And Plan - Current Problems (Diagnosis) (1) COPD exacerbation Current Visit: Yes Status: Acute (2) Pneumonia due to COVID-19 virus Current Visit: Yes Status: Acute (3) Acute respiratory failure with hypoxia Current Visit: Yes Status: Acute - Plan Physical exam: GEN: Intubated, unresponsive. Generalized edema. HEENT: NGT, ETT CV: Sinus rhythm, no edema Pulm: on mech ventilation, tachypneic, ABD: Soft, no distention. Integumentary: No rashes Neuro: sedated Problem List Acute hypoxemic respiratory failure secondary to COVID-19 pneumonia Acute on chronic COPD exacerbation Acute delirium /COVID encephalopathy He has severe leukocytosis/sepsis Continue IV steroid. Bronchodilator inhalers. Continue IV meropenem and vancomycin. Marked leukocytosis has not improved much to antibiotics. Blood cultures: Coagulase negative Staph. Likely a skin contaminant. Repeat blood cultures: No growth to date. Pulmonary is following. LFT fluctuating. Blood pressure also fluctuating Normal bilirubin suggest no biliary obstruction. Continue Vitamin D and zinc supplementation. Tube feeding. Monitor CBC and CMP. Poor prognosis. On Xarelto for DVT prophylaxis. Hemoglobin has been stable. Lower extremity venous Doppler is pending.
[2021-02-10 16:38] LABS: Blood Gas Oxyhemoglobin 86.7 % (94-97); Blood O2 Saturation 89.5 % (92-98.5)
[2021-02-10] MEDS: APIXABAN 5 MG TABLET PO SCH (20:46)
[2021-02-11] MEDS: HYDROMORPHONE HCL 2 MG/ML inj IV PRN ×6 (02:17→19:44)
[2021-02-11] MEDS: Meropenem 1 GM/100 ML BAG IV SCH ×2 (02:20→08:31)
[2021-02-11 05:19] LABS: Absolute Lymphocytes (CBC) 0.7 K/uL (0.7-4.9); Basophils % 0.5 % (0-1.3); Hematocrit 28.1 % (39.6-49.0); MPV 10.5 fL (7.6-11.3); RBC Red Blood Cell Count 3.01 M/uL (4.33-5.43)
[2021-02-11 05:47] LABS: AST/SGOT 125 U/L (15-37); Albumin 1.9 g/dL (3.4-5.0); Alkaline Phosphatase 146 U/L (45-117); BUN Blood Urea Nitrogen 71 mg/dL (7-18); Bicarbonate 31 mmol/L (21-32); Bilirubin Total 1.1 mg/dL (0.2-1.0); Glucose Level 189 mg/dL (74-106); Protein, Total 5.4 g/dL (6.4-8.2); Sodium Level 141 mmol/L (136-145)
[2021-02-11 05:49] LABS: ALT/SGPT 524 U/L (12-78)
[2021-02-11] MEDS: INSULIN -REGULAR HUMAN 50 UNIT/0.5 ML ML SQ SCH ×5 (06:00→23:45)
--- NOTE | 2021-02-11 07:59 | RAD REPORT ---
EXAM DESCRIPTION: Paul Single View02/11/2021 5:57 am CLINICAL HISTORY: Respiratory failure COMPARISON: none FINDINGS: Endotracheal tube has its tip overlying the top of the aortic arch. A feeding tube is coil ed within the neck. No significant change in the bilateral pulmonary opacities. Heart is normal size IMPRESSION: No significant change in the bilateral pulmonary opacities. Feeding tube coiled in the neck. Patient's nurse notified prior to this dictation
[2021-02-11] MEDS: THIAMINE 200 MG/2 ML INJ IVP SCH (08:29)
[2021-02-11] MEDS: METHYLPREDNISOLONE 40 MG INJ IV SCH ×2 (08:30→20:28)
[2021-02-11] MEDS: ARFORMOTEROL TARTRATE 15 MCG/2 ML VIAL.NEB NEB SCH ×2 (08:51→19:50)
[2021-02-11] MEDS: POLYETHYL GLY 3350 17 GM/DOSE PO SCH (09:00)
--- NOTE | 2021-02-11 09:24 | RAD REPORT ---
EXAM DESCRIPTION: RAD - Abdomen 1 View (KUB) - 02/11/2021 8:50 am CLINICAL HISTORY: Device placement Dobhoff tube placement FINDINGS: The tip of a Dobhoff tube lies within the proximal stomach 4 centimeters from the GE junc tion
[2021-02-11] MEDS: VITAMIN D 5,000 UNIT CAP PO SCH (09:36)
[2021-02-11] MEDS: APIXABAN 5 MG TABLET PO SCH ×2 (09:36→20:30)
[2021-02-11] MEDS: FLUCONAZOLE 100 MG TAB PO SCH (09:36)
[2021-02-11] MEDS: ASPIRIN 81 MG CHEWABLE TABLET PO SCH (09:36)
[2021-02-11] MEDS: FAMOTIDINE 20 MG TAB PO SCH ×2 (09:36→20:27)
[2021-02-11] MEDS: HYDROCODONE/APAP 5/325 MG TAB PO PRN ×2 (10:03→21:28)
--- NOTE | 2021-02-11 12:25 | P.PN ---
Date of Service: 02/11/21 Subjective: minimally responsive, off sedation, but does get dilaudid PRN for pain no acute events overnight ROS: Unable to be obtained, patient intubated Physical exam: GEN: Intubated HEENT: NG in place CV: Sinus tachycardia, +generalized edema Pulm: on mech ventilation, tachypneic ABD: Soft, no distention Integumentary: No rashes Neuro: squeezes right hand minimally, no tracking Problem List Acute hypoxemic respiratory failure secondary to COVID-19 pneumonia Acute on chronic COPD exacerbation Acute delirium /COVID encephalopathy intubated 02/02 night due to worsening hypoxia Blood and urine cultures (01/30), started Rocephin empirically on 01/30. Cultures negative so far. worsening leukocytosis, broadened to merrem/vanc on 02/03 blood: CONS - likely skin contaminant, repeat blood: no growth , on diflucan as well per pulm Suspect patient's encephalopathy likely component of delirium and COVID encephalopathy Patient also seemed to be uncomfortable. Family reported patient has a long history of severe lower back/leg pain, he was receiving a Lyrica, but then was having too much pain to even make it to his doctor's appointments. Started Lyrica evening of 01/29, BUYER reviewed, no opioids or other medications in over a year. seemed to be helping LFTs improving slowly, renal function ok continue mech ventilation continue tube feeds VTE: xarelto Code: full Dispo: continue ICU level of care, guarded prognosis, minimally responsive this morning will discuss with family, may be appropriate for LTAC Time Spent Managing Pts Care (In Minutes): 35
--- NOTE | 2021-02-11 12:44 | P.PN ---
Subjective Date of Service: 02/11/21 Chief Complaint: Respiratory failure Patient has respiratory failure alert but is not respond to any commands Review of Systems is unable to be obtained Physical Examination - Vital Signs Temperature: 98.8 F Blood Pressure: 99/62 Pulse: 72 Respirations: 25 Pulse Ox (%): 91 - Physical Exam Respiratory: Diminished, Expiratory wheezes Cardiovascular: Edema Assessment & Plan - Problems (Diagnosis) (1) Acute respiratory failure with hypoxia Current Visit: Yes Status: Acute Plan: Respiratory failure change to SIMV and pressure support changed to levofloxacin DC meropenem continue with vancomycin cultures reports reviewed chest x-ray shows some clearing with severe COPD change hopefully will able to start weaning him off from the ventilator labs reviewed medications adjusted Physician Review: Patient Assessed, Agree with Above Assessment and Plan
[2021-02-11] MEDS: Levofloxacin500mg IV 500 MG/100 ML BAG IV SCH (13:39)
[2021-02-11] MEDS: VANCOMYCIN 1.75 GM in NA CHLORIDE 0.9% 500 ML IVPB SCH (15:19)
[2021-02-11] MEDS: ACETAMINOPHEN 500 MG TAB PO PRN (16:58)
[2021-02-12] MEDS: HYDROMORPHONE HCL 2 MG/ML inj IV PRN ×6 (01:20→22:39)
[2021-02-12 05:36] LABS: Absolute Lymphocytes (CBC) 0.4 K/uL (0.7-4.9); Basophils % 0.3 % (0-1.3); Hematocrit 27.2 % (39.6-49.0); Lymphocytes % 1.1 % (15.3-44.8); MPV 10.9 fL (7.6-11.3)
--- NOTE | 2021-02-12 05:48 | P.PN ---
Date of Service: 02/12/21 Subjective: no acute events overnight. nursing reports patient more awake / moving, strength improving, at times resisting when nurses try to turn to reposition / clean doesn't seem to be aware of what's going on / not following commands ROS: Unable to be obtained, patient intubated Physical exam: GEN: Intubated HEENT: NG in place CV: Sinus tachycardia, +generalized edema Pulm: on mech ventilation, tachypneic ABD: Soft, no distention Integumentary: No rashes Neuro: squeezes right hand minimally, no tracking, not following other commands Problem List Acute hypoxemic respiratory failure secondary to COVID-19 pneumonia Acute on chronic COPD exacerbation Acute delirium /COVID encephalopathy Hyperkalemia intubated 02/02 night due to worsening hypoxia Blood and urine cultures (01/30), started Rocephin empirically on 01/30. Cultures negative so far. worsening leukocytosis, broadened to merrem/vanc on 02/03. changed to levaquin on 02/11 blood: CONS - likely skin contaminant, repeat blood: no growth , on diflucan as well per pulm. Suspect patient's encephalopathy likely component of delirium and COVID encephalopathy Patient also seemed to be uncomfortable. Family reported patient has a long history of severe lower back/leg pain, he was receiving a Lyrica, but then was having too much pain to even make it to his doctor's appointments. 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 seemed to be helping LFTs improving slowly, renal function ok kayexalate for hyperkalemia, trend continue mech ventilation continue tube feeds VTE: xarelto Code: full Dispo: continue ICU level of care, guarded prognosis will discuss with family, may be appropriate for LTAC, called son - no answer, unable to leave message Time Spent Managing Pts Care (In Minutes): 35
[2021-02-12 06:00] LABS: AST/SGOT 87 U/L (15-37); Albumin 1.9 g/dL (3.4-5.0); Alkaline Phosphatase 137 U/L (45-117); BUN Blood Urea Nitrogen 62 mg/dL (7-18); Bicarbonate 28 mmol/L (21-32); Bilirubin Total 1.2 mg/dL (0.2-1.0); C-Reactive Protein 8.35 mg/L (<3.00); Ferritin 737.8 ng/mL (26-388); Glucose Level 163 mg/dL (74-106); Magnesium 2.7 mg/dL (1.8-2.4); Potassium 5.5 mmol/L (3.5-5.1); Protein, Total 5.4 g/dL (6.4-8.2); Sodium Level 139 mmol/L (136-145)
[2021-02-12 06:04] LABS: ALT/SGPT 381 U/L (12-78)
[2021-02-12] MEDS ORDERED: SOD POLYSTYREN SUL 15 GM/60 ML UCUP PO ONE (06:49)
[2021-02-12] MEDS: INSULIN -REGULAR HUMAN 50 UNIT/0.5 ML ML SQ SCH ×4 (07:22→23:36)
[2021-02-12] MEDS: ARFORMOTEROL TARTRATE 15 MCG/2 ML VIAL.NEB NEB SCH ×2 (07:43→19:45)
--- NOTE | 2021-02-12 07:45 | RAD REPORT ---
EXAM DESCRIPTION: RAD - Chest Single View - 02/12/2021 6:27 am CLINICAL HISTORY: intubated, COVID COMPARISON: Abdomen 1 View (KUB) dated 02/11/2021; Chest Single View dated 02/11/2021; Chest Single View dated 02/10/2021; Chest Single View dated 02/09/2021 FINDINGS: Lines: Endotracheal tube at the aortic arch in satisfactory position. Weighted feeding tub e in the stomach. Lungs: Patchy bilateral airspace disease is similar to prior. Pleural: No significant pleural effusions or pneumothorax. Cardiac: The heart size is within normal limits. Bones: No acute fractures. Other: IMPRESSION: No significant interval change. Support apparatus in satisfactory position.
[2021-02-12] MEDS: METHYLPREDNISOLONE 40 MG INJ IV SCH ×2 (08:00→20:11)
[2021-02-12] MEDS: FLUCONAZOLE 100 MG TAB PO SCH (08:01)
[2021-02-12] MEDS: POLYETHYL GLY 3350 17 GM/DOSE PO SCH (08:01)
[2021-02-12] MEDS: FAMOTIDINE 20 MG TAB PO SCH ×2 (08:01→20:10)
[2021-02-12] MEDS: APIXABAN 5 MG TABLET PO SCH ×2 (08:01→20:10)
[2021-02-12] MEDS: ASPIRIN 81 MG CHEWABLE TABLET PO SCH (08:01)
[2021-02-12 08:10] LABS: Anisocytosis SLIGHT; Blood Morphology Comment NOTED (NOT SEEN); Platelet Estimate ADEQ; Poikilocytosis SLIGHT; Polychromasia SLIGHT
[2021-02-12 08:11] LABS: Basophilic Stippling 1+
[2021-02-12] MEDS: VANCOMYCIN 1.75 GM in NA CHLORIDE 0.9% 500 ML IVPB SCH ×2 (09:00→20:11)
[2021-02-12] MEDS: Levofloxacin500mg IV 500 MG/100 ML BAG IV SCH (11:52)
[2021-02-12] MEDS: HYDROCODONE/APAP 5/325 MG TAB PO PRN ×2 (11:52→20:29)
[2021-02-12] MEDS: ALBUTEROL 2.5 MG/3 ML NEB SOL IH PRN ×2 (16:00→19:45)
[2021-02-12] MEDS ORDERED: ALBUTEROL 2.5 MG/3 ML NEB SOL NEB ONE (16:17)
[2021-02-13] MEDS: HYDROMORPHONE HCL 2 MG/ML inj IV PRN ×5 (02:09→19:15)
[2021-02-13] MEDS: HYDROCODONE/APAP 5/325 MG TAB PO PRN ×3 (04:25→20:10)
[2021-02-13] MEDS: INSULIN -REGULAR HUMAN 50 UNIT/0.5 ML ML SQ SCH ×3 (05:18→17:57)
[2021-02-13 05:27] LABS: Absolute Lymphocytes (CBC) 0.6 K/uL (0.7-4.9); Lymphocytes % 2.4 % (15.3-44.8); RBC Red Blood Cell Count 2.38 M/uL (4.33-5.43)
[2021-02-13 05:30] LABS: Protime INR 1.31
[2021-02-13 05:39] LABS: Basophils % 0.7 % (0-1.3); Hematocrit 22.5 % (39.6-49.0); MPV 10.7 fL (7.6-11.3)
[2021-02-13 05:47] LABS: ALT/SGPT 255 U/L (12-78); AST/SGOT 73 U/L (15-37); Albumin 1.7 g/dL (3.4-5.0); Alkaline Phosphatase 126 U/L (45-117); BUN Blood Urea Nitrogen 60 mg/dL (7-18); Bicarbonate 28 mmol/L (21-32); Bilirubin Total 1.1 mg/dL (0.2-1.0); C-Reactive Protein 8.54 mg/L (<3.00); Ferritin 478.8 ng/mL (26-388); Glucose Level 189 mg/dL (74-106); Magnesium 2.5 mg/dL (1.8-2.4); Potassium 4.8 mmol/L (3.5-5.1); Protein, Total 4.7 g/dL (6.4-8.2); Sodium Level 140 mmol/L (136-145)
--- NOTE | 2021-02-13 05:47 | P.PN ---
Date of Service: 02/13/21 Subjective: no acute events overnight. No significant change clinically. RT report difficult to wean further. Hemoglobin down to 7.1, no evidence of bleeding, has been on anticoagulation no change in mentation/responsiveness ROS: Unable to be obtained, patient intubated Physical exam: GEN: Intubated HEENT: NG in place CV: Sinus tachycardia, +generalized edema Pulm: on mech ventilation, tachypneic ABD: Soft, no distention Integumentary: No rashes Neuro: squeezes right hand minimally, no tracking, not following other commands for me Problem List Acute hypoxemic respiratory failure secondary to COVID-19 pneumonia Acute on chronic COPD exacerbation Acute delirium /COVID encephalopathy Hyperkalemia Anemia intubated 02/02 night due to worsening hypoxia Blood and urine cultures (01/30), started Rocephin empirically on 01/30. Cultures negative so far. worsening leukocytosis, broadened to merrem/vanc on 02/03. changed to levaquin on 02/11 blood: CONS - likely skin contaminant, repeat blood: no growth , on diflucan as well per pulm. Suspect patient's encephalopathy likely component of delirium and COVID encephalopathy Patient also seemed to be uncomfortable. Family reported patient has a long history of severe lower back/leg pain, he was receiving a Lyrica, but then was having too much pain to even make it to his doctor's appointments. 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 seemed to be helping LFTs improving slowly, renal function ok kayexalate for hyperkalemia, trend unclear etiology of anemia, no evidence of bleed, possible bone marrow suppression from infection, trend H/H decrease anticoagulation to DVT prophylaxis continue mech ventilation continue tube feeds VTE: lovenox Code: full Dispo: continue ICU level of care, guarded prognosis will discuss with family, may be appropriate for LTAC, called son - no answer, unable to leave message will call grand-daughter today Time Spent Managing Pts Care (In Minutes): 35
--- NOTE | 2021-02-13 07:47 | RAD REPORT ---
EXAM DESCRIPTION: RAD - Chest Single View - 02/13/2021 6:05 am CLINICAL HISTORY: intubated, COVIDpneumonia COMPARISON: Portable February 12 chest, portable February 11 KUB TECHNIQUE: AP portable chest image was obtained 02/13/2021 6:05 am . FINDINGS: Endotracheal tube tip is top of the aortic arch. This is adequately positioned between the clavicle and ruperto. Positioning is stable from prior examination. Feeding tube is in place. Tip is in proximity to the GE junction near the level of the diaphragmatic lizandro. This may have retracted very slightly. The tip is probably in the gastric cardia region; geri r, placement within the gastric lumen is not confirmed on this study. Patchy bilateral lung parenchymal opacification at each lung base not clearly different from comparis on studies. No progressive lung parenchymal process. Heart and vasculature are normal. No measurable pleural effusion and no pneumothorax. No acute bony a bnormality seen. No acute aortic findings suspected. IMPRESSION: Stable bibasilar lung parenchymal opacification pattern. Stable positioning of the ETT at the top of the aortic arch. Feeding tube tip is probably in the gastric cardia near the GE junction. However, definitive position ing within the lumen of the stomach cannot be confirmed. Tip appears to have retracted approximately 1 centimeter from prior imaging.
[2021-02-13] MEDS: ARFORMOTEROL TARTRATE 15 MCG/2 ML VIAL.NEB NEB SCH ×2 (08:00→20:10)
[2021-02-13] MEDS: ALBUTEROL 2.5 MG/3 ML NEB SOL IH PRN ×3 (08:26→20:10)
[2021-02-13] MEDS: METHYLPREDNISOLONE 40 MG INJ IV SCH ×2 (08:40→20:10)
[2021-02-13] MEDS: FAMOTIDINE 20 MG TAB PO SCH ×2 (08:40→20:10)
[2021-02-13] MEDS: POLYETHYL GLY 3350 17 GM/DOSE PO SCH (08:40)
[2021-02-13] MEDS: ASPIRIN 81 MG CHEWABLE TABLET PO SCH (08:40)
[2021-02-13] MEDS: FLUCONAZOLE 100 MG TAB PO SCH (08:41)
--- NOTE | 2021-02-13 12:51 | P.PN ---
Subjective Date of Service: 02/13/21 Chief Complaint: Respiratory failure Patient is responsive alert tachypneic on a ventilator I am to wean him off is currently on 50% FiO2 and SIMV does follow some commands Review of Systems is unable to be obtained Physical Examination - Vital Signs Temperature: 98 F Blood Pressure: 133/70 Pulse: 77 Respirations: 14 Pulse Ox (%): 86 - Physical Exam General: Alert, Cooperative Respiratory: Clear to auscultation bilaterally, Diminished Cardiovascular: No edema, Regular rate/rhythm Assessment & Plan - Problems (Diagnosis) (1) Acute respiratory failure with hypoxia Current Visit: Yes Status: Acute Plan: Respiratory failure patient is alert continue to wean off using SIMV patient's white count is declining repeat sputum culture continue with present doses of antibiotics for now chest x-ray suggestive of severe COPD endotracheal tube is positioned properly there may be some improvement in his left lower lobe infiltrate evaluate for LTAC Physician Review: Patient Assessed, Agree with Above Assessment and Plan
[2021-02-13] MEDS: Levofloxacin500mg IV 500 MG/100 ML BAG IV SCH (13:11)
[2021-02-13 13:43] LABS: Blood O2 Saturation 85.7 % (92-98.5)
[2021-02-13 13:44] LABS: Arterial Blood Carboxyhemoglob 2.5 % (0-1.5); Blood Gas Oxyhemoglobin 82.9 % (94-97)
[2021-02-13 14:47] LABS: Hematocrit 22.9 % (39.6-49.0)
[2021-02-13] MEDS: ENOXAPARIN 40 MG/0.4 ML SQ SCH (17:57)
[2021-02-13] MEDS: VANCOMYCIN 1.75 GM in NA CHLORIDE 0.9% 500 ML IVPB SCH (20:10)
[2021-02-13] MEDS: HALOPERIDOL LACT 5 MG/ML INJ IV PRN (22:24)
[2021-02-13] MEDS: VITAL HP 1,000 ML BOT RTH SCH (22:25)
[2021-02-14] MEDS: HYDROMORPHONE HCL 2 MG/ML inj IV PRN ×5 (03:08→19:33)
[2021-02-14] MEDS: ACETAMINOPHEN 500 MG TAB PO PRN (03:14)
[2021-02-14] MEDS: HALOPERIDOL LACT 5 MG/ML INJ IV PRN (03:17)
--- NOTE | 2021-02-14 05:50 | P.PN ---
Date of Service: 02/14/21 Subjective: Febrile last night, nursing reported no other acute events. Seems to be a little bit more alert, and that he is tracking a little bit more, shakes his head at times. ROS: Unable to be obtained, patient intubated Physical exam: GEN: Intubated HEENT: NG in place CV: Sinus tachycardia, +generalized edema Pulm: on mech ventilation, tachypneic ABD: Soft, no distention Integumentary: No rashes Neuro: Low to my direction when I spoke to him, not following commands, minimal spontaneous movement of upper extremities Problem List Acute hypoxemic respiratory failure secondary to COVID-19 pneumonia Acute on chronic COPD exacerbation Acute delirium /COVID encephalopathy Hyperkalemia Anemia intubated 02/02 night due to worsening hypoxia Blood and urine cultures (01/30), started Rocephin empirically on 01/30. Cultures negative so far. worsening leukocytosis, broadened to merrem/vanc on 02/03. changed to levaquin on 02/11 blood: CONS - likely skin contaminant, repeat blood: no growth , on diflucan as well per pulm. Suspect patient's encephalopathy likely component of delirium and COVID encephalopathy Patient also seemed to be uncomfortable. Family reported patient has a long history of severe lower back/leg pain, he was receiving a Lyrica, but then was having too much pain to even make it to his doctor's appointments. 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 seemed to be helping LFTs improving slowly, renal function ok kayexalate for hyperkalemia, improved unclear etiology of anemia, no evidence of bleed, possible bone marrow suppressi on from infection, trend H/H decreased anticoagulation to DVT prophylaxis on 02/13 transfuse 2u PRBC today continue mech ventilation continue tube feeds VTE: lovenox Code: full Dispo: continue ICU level of care, guarded prognosis will discuss with family, may be appropriate for LTAC, called son - no answer, unable to leave message spoke with granddaughter to have son call Time Spent Managing Pts Care (In Minutes): 35
[2021-02-14] MEDS: INSULIN -REGULAR HUMAN 50 UNIT/0.5 ML ML SQ SCH ×5 (06:00→23:58)
[2021-02-14] MEDS ORDERED: Meropenem 1 GM/100 ML BAG IV SCH (06:00)
[2021-02-14 06:08] LABS: Arterial Blood Carboxyhemoglob 2.3 % (0-1.5); Blood Gas Oxyhemoglobin 88.9 % (94-97); Blood O2 Saturation 92.2 % (92-98.5)
[2021-02-14 06:10] LABS: Absolute Lymphocytes (CBC) 0.6 K/uL (0.7-4.9); Basophils % 1.1 % (0-1.3); Hematocrit 21.1 % (39.6-49.0); Lymphocytes % 2.4 % (15.3-44.8); MPV 10.2 fL (7.6-11.3)
[2021-02-14 06:12] LABS: ALT/SGPT 218 U/L (12-78); AST/SGOT 69 U/L (15-37); Albumin 1.7 g/dL (3.4-5.0); Alkaline Phosphatase 113 U/L (45-117); BUN Blood Urea Nitrogen 50 mg/dL (7-18); Bicarbonate 29 mmol/L (21-32); Bilirubin Total 1.2 mg/dL (0.2-1.0); C-Reactive Protein 5.02 mg/L (<3.00); Ferritin 427.2 ng/mL (26-388); Glucose Level 181 mg/dL (74-106); Magnesium 2.4 mg/dL (1.8-2.4); Phosphorus 3.9 mg/dL (2.5-4.9); Potassium 4.8 mmol/L (3.5-5.1); Protein, Total 4.6 g/dL (6.4-8.2); Sodium Level 140 mmol/L (136-145); Transferrin 210 mg/dL (200-360)
[2021-02-14] MEDS ORDERED: NA CHLORIDE 0.9% 250 ML IV SCH (07:00)
[2021-02-14 07:22] LABS: Urine Appearance CLEAR (Clear); Urine Bilirubin NEGATIVE (Negative); Urine Blood 2+ (Negative); Urine Color YELLOW (Yellow); Urine Glucose NEGATIVE (Negative); Urine Protein NEGATIVE (Negative); Urine Specific Gravity 1.025 (1.005-1.030); Urine pH 5.5 (5.0-7.0)
[2021-02-14] MEDS: Meropenem 1 GM/100 ML BAG IV SCH ×2 (07:22→16:17)
[2021-02-14 07:23] LABS: Urine Microscopic Reflex ORDER UMIC
[2021-02-14] MEDS: METHYLPREDNISOLONE 40 MG INJ IV SCH ×2 (07:23→20:15)
[2021-02-14] MEDS: FLUCONAZOLE 100 MG TAB PO SCH (07:23)
[2021-02-14] MEDS: ASPIRIN 81 MG CHEWABLE TABLET PO SCH (07:23)
[2021-02-14] MEDS: POLYETHYL GLY 3350 17 GM/DOSE PO SCH (07:24)
[2021-02-14] MEDS: FAMOTIDINE 20 MG TAB PO SCH ×2 (07:24→20:15)
[2021-02-14 07:34] LABS: Urine Bacteria NONE SEEN /HPF (NONE SEEN); Urine Mucus LIGHT /HPF (NONE SEEN); Urine RBC <5 /HPF (NONE SEEN)
--- NOTE | 2021-02-14 07:58 | RAD REPORT ---
EXAM DESCRIPTION: RAD - Chest Single View - 02/14/2021 6:43 am CLINICAL HISTORY: intubated, COVID COMPARISON: Chest Single View dated 02/13/2021; Chest Single View dated 02/12/2021; Abdomen 1 View ( KUB) dated 02/11/2021; Chest Single View dated 02/11/2021 FINDINGS: Lines: Endotracheal tube at the top of the aortic arch in satisfactory position. Right sub clavian approach PICC with tip overlying the SVC. Weighted feeding tube tip overlying the stomach. Lungs: Basilar airspace disease without substantial change compared 02/13/2021. Pleural: No significant pleural effusions or pneumothorax. Cardiac: The heart size is within normal limits. Bones: No acute fractures. Other: IMPRESSION: Similar bilateral airspace disease. Support apparatus in satisfactory position.
[2021-02-14] MEDS: ARFORMOTEROL TARTRATE 15 MCG/2 ML VIAL.NEB NEB SCH ×2 (08:00→20:50)
[2021-02-14] MEDS: ALBUTEROL 2.5 MG/3 ML NEB SOL IH PRN ×2 (08:46→20:50)
[2021-02-14] MEDS ORDERED: NA CHLORIDE 0.9% 250 ML ONE (11:30)
--- NOTE | 2021-02-14 13:14 | P.PN ---
Subjective Date of Service: 02/14/21 Chief Complaint: Respiratory failure No change in patient's condition patient does track with his eyes still on a ventilator anemic evidence of bleeding Review of Systems is unable to be obtained Physical Examination - Vital Signs Temperature: 99.0 F Blood Pressure: 175/76 Pulse: 85 Respirations: 16 Pulse Ox (%): 93 - Physical Exam General: Alert Respiratory: Clear to auscultation bilaterally, Diminished, Friction rub Cardiovascular: Regular rate/rhythm Assessment & Plan - Problems (Diagnosis) (1) Acute respiratory failure with hypoxia Current Visit: Yes Status: Acute Plan: Respiratory failure patient's oxygen requirement have remained stable severely anemic evidence of GI bleeding agree with blood transfusion white count is still elevated will adjust antibiotics depending upon his cultures chest x-ray no change COPD changes possible LTAC procalcitonin level negative Physician Review: Patient Assessed, Agree with Above Assessment and Plan
[2021-02-14] MEDS ORDERED: FUROSEMIDE 20 MG/ 2ML VIAL IV ONE (14:00)
[2021-02-14] MEDS: ENOXAPARIN 40 MG/0.4 ML SQ SCH (18:24)
[2021-02-14] MEDS: HYDROCODONE/APAP 5/325 MG TAB PO PRN (20:15)
[2021-02-14] MEDS: VANCOMYCIN 1.75 GM in NA CHLORIDE 0.9% 500 ML IVPB SCH (21:21)
[2021-02-14 22:47] LABS: Hematocrit 29.4 % (39.6-49.0)
[2021-02-15] MEDS: HYDROMORPHONE HCL 2 MG/ML inj IV PRN ×4 (00:02→17:07)
[2021-02-15] MEDS: Meropenem 1 GM/100 ML BAG IV SCH ×2 (00:03→07:56)
[2021-02-15 05:06] LABS: Absolute Lymphocytes (CBC) 0.8 K/uL (0.7-4.9); Basophils % 0.7 % (0-1.3); Hematocrit 27.2 % (39.6-49.0); Lymphocytes % 2.7 % (15.3-44.8); MPV 9.7 fL (7.6-11.3); RBC Red Blood Cell Count 2.88 M/uL (4.33-5.43)
[2021-02-15 05:17] LABS: ALT/SGPT 221 U/L (12-78); AST/SGOT 79 U/L (15-37); Albumin 1.8 g/dL (3.4-5.0); Alkaline Phosphatase 128 U/L (45-117); BUN Blood Urea Nitrogen 41 mg/dL (7-18); Bicarbonate 28 mmol/L (21-32); Bilirubin Total 1.5 mg/dL (0.2-1.0); Glucose Level 155 mg/dL (74-106); Magnesium 2.2 mg/dL (1.8-2.4); Phosphorus 3.6 mg/dL (2.5-4.9); Potassium 5.1 mmol/L (3.5-5.1); Protein, Total 4.6 g/dL (6.4-8.2); Sodium Level 139 mmol/L (136-145)
[2021-02-15] MEDS: INSULIN -REGULAR HUMAN 50 UNIT/0.5 ML ML SQ SCH ×3 (05:28→17:17)
[2021-02-15 05:29] LABS: C-Reactive Protein < 2.90 mg/L (<3.00)
--- NOTE | 2021-02-15 05:59 | P.PN ---
Date of Service: 02/15/21 Subjective: No acute events overnight. Patient received 2 units of blood yesterday without issue. No signs/evidence of bleeding/jay blood Hemoglobin slightly decreased this morning Nursing staff report some very slight improvement in alertness. He seems to understand basic questions intermittently, or at least nodding to some questions ROS: Unable to be obtained, patient intubated Physical exam: GEN: Intubated HEENT: NG in place CV: Sinus tachycardia, +generalized edema Pulm: on mech ventilation, tachypneic ABD: Soft, no distention Integumentary: No rashes Neuro: Looked towards me when I woke him up, not following commands however. minimal spontaneous movement of upper extremities Problem List Acute hypoxemic respiratory failure secondary to COVID-19 pneumonia Acute on chronic COPD exacerbation Acute delirium /COVID encephalopathy Hyperkalemia Anemia intubated 02/02 night due to worsening hypoxia Patient's leukocytosis has been very labile throughout the hospitalization, with changes in antibiotics. Empirically start Rocephin 01/30, and broadened to Merrem/Vanco on 02/03. Further deescalated to Levaquin on 02/11+ vancomycin. blood: CONS - likely skin contaminant, repeat blood: no growth Patient was febrile on 02/13, Levaquin switched back to meropenem and cultures were obtained Leukocytosis worsening again. Unclear if due to steroids are truly an infection, as patient has been on multiple antibiotics over the last 2 weeks. Suspect patient's encephalopathy likely component of delirium and COVID encephalopathy kayexalate for hyperkalemia, improved unclear etiology of anemia, no evidence of bleed, possible bone marrow suppression from infection, blood work with iron deficiency decreased anticoagulation to DVT prophylaxis on 02/13, hold on 02/15 after hemoglobin dropped again Hemoccult was obtained overnight, positive, suspected. Patient has a Dobbhoff in place and is intubated. hold Lovenox today, discontinued aspirin transfuse 2u PRBC on 02/14 continue mech ventilation continue tube feeds VTE: lovenox (hold) Code: full Dispo: continue ICU level of care, guarded prognosis will discuss with family, may be appropriate for LTAC, have not been able to get a hold of his son, will try to call later today Time Spent Managing Pts Care (In Minutes): 35
[2021-02-15] MEDS: METHYLPREDNISOLONE 40 MG INJ IV SCH (07:53)
[2021-02-15] MEDS: HYDROCODONE/APAP 5/325 MG TAB PO PRN ×2 (07:54→18:39)
[2021-02-15] MEDS: FAMOTIDINE 20 MG TAB PO SCH ×2 (07:54→19:58)
[2021-02-15] MEDS: FLUCONAZOLE 100 MG TAB PO SCH (07:55)
[2021-02-15] MEDS: ASPIRIN 81 MG CHEWABLE TABLET PO SCH (07:55)
[2021-02-15] MEDS: POLYETHYL GLY 3350 17 GM/DOSE PO SCH (07:56)
[2021-02-15] MEDS: ALBUTEROL 2.5 MG/3 ML NEB SOL IH PRN ×2 (09:45→19:50)
[2021-02-15] MEDS: ARFORMOTEROL TARTRATE 15 MCG/2 ML VIAL.NEB NEB SCH ×2 (09:45→19:50)
--- NOTE | 2021-02-15 10:39 | RAD REPORT ---
EXAM DESCRIPTION: Paul Single View02/15/2021 6:39 am CLINICAL HISTORY: Chest pain COMPARISON: February 14, 2021 FINDINGS: Endotracheal tube with its tip 14 millimeters above the top of the aortic arch. Feeding tube within the stomach. No significant change in the bilateral pulmonary opacities. Heart is normal size
--- NOTE | 2021-02-15 11:23 | P.PN ---
Subjective Date of Service: 02/15/21 Chief Complaint: Respiratory failure Patient is more alert responsive cooperative generalized edema evidence of GI bleed Review of Systems is unable to be obtained Physical Examination - Vital Signs Temperature: 98.4 F Blood Pressure: 136/68 Pulse: 71 Respirations: 15 Pulse Ox (%): 95 - Physical Exam General: Alert, Cooperative Respiratory: Clear to auscultation bilaterally Cardiovascular: Edema (Significant edema) Assessment & Plan - Problems (Diagnosis) (1) Acute respiratory failure with hypoxia Current Visit: Yes Status: Acute Plan: Patient is improving he is more alert responsive will try and wean him off the ventilator today I will of Lasix iron studies probably iron deficient blood cultures negative DC vancomycin doubt sepsis DC vancomycin calcitonin borderline elevated white count remains persistently high no change continue with Diflucan reduce dose of steroids Physician Review: Patient Assessed, Agree with Above Assessment and Plan
[2021-02-15] MEDS ORDERED: FUROSEMIDE 20 MG/ 2ML VIAL IV ONE (12:00)
[2021-02-15] MEDS: ENOXAPARIN 40 MG/0.4 ML SQ SCH (16:32)
[2021-02-15] MEDS: ZIPRASIDONE MESYLA 20 MG/VIAL IM PRN (18:39)
[2021-02-15] MEDS: predniSONE 20 MG TAB PO SCH (19:57)
[2021-02-15] MEDS ORDERED: VANCOMYCIN 2 GM in NA CHLORIDE 0.9% 500 ML IVPB SCH (21:00)
[2021-02-15] MEDS: VITAL HP 1,000 ML BOT RTH SCH (21:17)
[2021-02-16] MEDS: HYDROMORPHONE HCL 2 MG/ML inj IV PRN ×7 (00:27→23:46)
[2021-02-16] MEDS: INSULIN -REGULAR HUMAN 50 UNIT/0.5 ML ML SQ SCH ×5 (05:53→23:47)
--- NOTE | 2021-02-16 05:56 | P.PN ---
Date of Service: 02/16/21 Subjective: no acute events overnight. no signficant changes wakes up to voice, nods head at times but not appropriately +large BM yesterday ROS: Unable to be obtained, patient intubated Physical exam: GEN: Intubated HEENT: ETT in place, opens eyes, EOMI CV: Sinus tachycardia, +generalized edema Pulm: on mech ventilation, tachypneic intermittently ABD: Soft, no distention Integumentary: No rashes Neuro: looks in my direction to my voice initially, then doesn't track. minimal spontaneous movement of upper extremities Problem List Acute hypoxemic respiratory failure secondary to COVID-19 pneumonia Acute on chronic COPD exacerbation Acute delirium /COVID encephalopathy Hyperkalemia Anemia, blood loss intubated 02/02 night due to worsening hypoxia Patient's leukocytosis has been labile throughout the hospitalization, with changes in antibiotics. blood: CONS - likely skin contaminant, repeat blood: no growth, 02/14 repeat blood: 1/4 bottles GPC Patient was febrile on 02/13, repeat cultures obtained. Sputum culture resulted 02/16 with Enterobacter and Pseudomonas. Sensitive to Levaquin. restart Levaquin on 02/16 Leukocytosis worsening again. Unclear if due to steroids are truly an infection, as patient has been on multiple antibiotics over the last 2 weeks. Suspect patient's encephalopathy likely component of delirium and COVID encephalopathy kayexalate for hyperkalemia, improved unclear etiology of anemia, no evidence of bleed, possible bone marrow suppression from infection, blood work sent to eval iron deficiency decreased anticoagulation to DVT prophylaxis on 02/13, held 02/15 and 02/16 due to dropping hgb. Possibly restart tomorrow if stable Hemoccult was obtained overnight, positive, suspected. Patient has a Dobbhoff in place and is intubated. discontinued aspirin transfuse 2u PRBC on 02/14 continue mech ventilation continue tube feeds VTE: lovenox (hold) Code: full Dispo: continue ICU level of care, guarded prognosis will discuss with family, may be appropriate for LTAC Time Spent Managing Pts Care (In Minutes): 35
[2021-02-16 07:06] LABS: Basophils % 0.2 % (0-1.3); Hematocrit 27.3 % (39.6-49.0); Lymphocytes % 3.9 % (15.3-44.8); MPV 9.4 fL (7.6-11.3); RBC Red Blood Cell Count 2.83 M/uL (4.33-5.43)
[2021-02-16 07:23] LABS: ALT/SGPT 216 U/L (12-78); AST/SGOT 72 U/L (15-37); Albumin 1.8 g/dL (3.4-5.0); Alkaline Phosphatase 107 U/L (45-117); BUN Blood Urea Nitrogen 40 mg/dL (7-18); Bicarbonate 30 mmol/L (21-32); Bilirubin Total 1.4 mg/dL (0.2-1.0); Glucose Level 127 mg/dL (74-106); Magnesium 2.3 mg/dL (1.8-2.4); Potassium 4.4 mmol/L (3.5-5.1); Protein, Total 4.6 g/dL (6.4-8.2); Sodium Level 136 mmol/L (136-145)
[2021-02-16] MEDS: ARFORMOTEROL TARTRATE 15 MCG/2 ML VIAL.NEB NEB SCH ×2 (07:23→20:00)
[2021-02-16 07:24] LABS: C-Reactive Protein < 2.90 mg/L (<3.00)
--- NOTE | 2021-02-16 07:38 | RAD REPORT ---
EXAM DESCRIPTION: RAD - Chest Single View - 02/16/2021 7:00 am CLINICAL HISTORY: intubated, COVIDpneumonia COMPARISON: February 15 TECHNIQUE: AP portable chest image was obtained 02/16/2021 7:00 am . FINDINGS: ET tube position is stable with the tip at the top of the aortic arch. PICC line remains m id SVC in position. Underlying fibro emphysematous lung changes are again noted. Left base pneumonia findings not signifi cantly different from prior day imaging. No progressive lung parenchymal process. Heart and vasculature are normal. No pneumothorax or subcutaneous emphysema. Left costophrenic angle blunting from scarring or minimal effusion remain. No acute bony abnormality seen. No acute aortic f indings suspected. IMPRESSION: No change to the left base pneumonia findings since February 15 imaging. Tubes and lines are stable.
[2021-02-16] MEDS: FAMOTIDINE 20 MG TAB PO SCH ×2 (08:30→20:02)
[2021-02-16] MEDS: FLUCONAZOLE 100 MG TAB PO SCH (08:30)
[2021-02-16] MEDS: POLYETHYL GLY 3350 17 GM/DOSE PO SCH (08:30)
[2021-02-16] MEDS: predniSONE 20 MG TAB PO SCH ×2 (08:30→20:02)
[2021-02-16] MEDS: Levofloxacin 750mg IV 750 MG/150 ML BAG IV SCH (12:07)
[2021-02-16] MEDS: HALOPERIDOL LACT 5 MG/ML INJ IV PRN (14:14)
[2021-02-16] MEDS: HYDROCODONE/APAP 5/325 MG TAB PO PRN (16:33)
[2021-02-16] MEDS: ENOXAPARIN 40 MG/0.4 ML SQ SCH (17:14)
[2021-02-16] MEDS: ZIPRASIDONE MESYLA 20 MG/VIAL IM PRN (19:34)
[2021-02-16] MEDS: WATER FOR INJ,STERILE 10 ML IM PRN (19:35)
[2021-02-16] MEDS: ALBUTEROL 2.5 MG/3 ML NEB SOL IH PRN (20:12)
[2021-02-16] MEDS: VITAL HP 1,000 ML BOT RTH SCH (20:40)
[2021-02-17] MEDS: HYDROMORPHONE HCL 2 MG/ML inj IV PRN ×5 (03:08→20:56)
[2021-02-17 05:19] LABS: Absolute Lymphocytes (CBC) 0.5 K/uL (0.7-4.9); Basophils % 0.3 % (0-1.3); Hematocrit 26.8 % (39.6-49.0); Lymphocytes % 2.2 % (15.3-44.8); MPV 9.3 fL (7.6-11.3); RBC Red Blood Cell Count 2.74 M/uL (4.33-5.43)
[2021-02-17 05:45] LABS: ALT/SGPT 219 U/L (12-78); AST/SGOT 69 U/L (15-37); Albumin 1.8 g/dL (3.4-5.0); Alkaline Phosphatase 111 U/L (45-117); BUN Blood Urea Nitrogen 36 mg/dL (7-18); Bicarbonate 29 mmol/L (21-32); Bilirubin Total 1.1 mg/dL (0.2-1.0); Glucose Level 149 mg/dL (74-106); Magnesium 2.3 mg/dL (1.8-2.4); Potassium 4.5 mmol/L (3.5-5.1); Protein, Total 4.6 g/dL (6.4-8.2); Sodium Level 136 mmol/L (136-145)
--- NOTE | 2021-02-17 05:58 | P.PN ---
Date of Service: 02/17/21 Subjective: No acute events overnight. Patient continues to remain the same. He occasionally gets agitated Occasionally/intermittently to questions, at times does seem to answer appropriately (nods yes/no) However, most of the time he is not very responsive/responding appropriate ROS: Unable to be obtained, patient intubated Physical exam: GEN: Intubated HEENT: ETT in place, opens eyes, EOMI CV: Regular rate/rhythm, +generalized edema Pulm: on mech ventilation, tachypneic intermittently ABD: Soft, no distention Integumentary: No rashes Neuro: looks in my direction to my voice initially. minimal spontaneous movement of upper extremities Problem List Acute hypoxemic respiratory failure secondary to COVID-19 pneumonia Acute on chronic COPD exacerbation Acute delirium /COVID encephalopathy Hyperkalemia Anemia, acute blood loss intubated 02/02 night due to worsening hypoxia Patient's leukocytosis has been labile throughout the hospitalization, with changes in antibiotics. blood: CONS - likely skin contaminant, repeat blood: no growth, 02/14 repeat blood: 1/4 bottles GPC Patient was febrile on 02/13, repeat cultures obtained. Sputum culture resulted 02/16 with Enterobacter and Pseudomonas. Sensitive to Levaquin. restart Levaquin on 02/16 Leukocytosis worsening again. Unclear if due to steroids are truly an infection, as patient has been on multiple antibiotics over the last 2 weeks. Suspect patient's encephalopathy likely component of delirium and COVID encephalopathy kayexalate for hyperkalemia, improved unclear etiology of anemia, no evidence of bleed, possible bone marrow suppression from infection, blood work sent to eval iron deficiency decreased anticoagulation to DVT prophylaxis on 02/13, held 02/15, restarted on 02/15 , Hemoglobin stable Hemoccult was obtained overnight, positive, suspected. Patient has a Dobbhoff in place and is intubated. discontinued aspirin transfused 2u PRBC on 02/14 continue mech ventilation continue tube feeds VTE: lovenox Code: full Dispo: continue ICU level of care, guarded prognosis Spoke with son, Colt, agreeable to LTAC. surgical services asst consulted to initiate process Time Spent Managing Pts Care (In Minutes): 35
[2021-02-17] MEDS: INSULIN -REGULAR HUMAN 50 UNIT/0.5 ML ML SQ SCH ×3 (06:00→17:59)
[2021-02-17 07:15] LABS: Arterial Blood Carboxyhemoglob 2.2 % (0-1.5); Blood Gas Oxyhemoglobin 77.7 % (94-97); Blood O2 Saturation 80.5 % (92-98.5)
[2021-02-17] MEDS: ARFORMOTEROL TARTRATE 15 MCG/2 ML VIAL.NEB NEB SCH ×2 (08:14→21:00)
[2021-02-17 08:30] LABS: Basophilic Stippling 2+; Blood Morphology Comment NOTED (NOT SEEN); Platelet Estimate ADEQ; Polychromasia 1+
[2021-02-17] MEDS: FLUCONAZOLE 100 MG TAB PO SCH (09:09)
[2021-02-17] MEDS: predniSONE 20 MG TAB PO SCH ×2 (09:10→20:57)
[2021-02-17] MEDS: FAMOTIDINE 20 MG TAB PO SCH ×2 (09:10→20:57)
[2021-02-17] MEDS: POLYETHYL GLY 3350 17 GM/DOSE PO SCH (09:10)
--- NOTE | 2021-02-17 12:26 | P.PN ---
Subjective Date of Service: 02/17/21 Chief Complaint: Respiratory failure Unable to wean patient off the ventilator apneic on the ventilator minimally responsive Review of Systems is unable to be obtained Physical Examination - Vital Signs Temperature: 98 F Blood Pressure: 113/96 Pulse: 91 Respirations: 19 Pulse Ox (%): 100 - Physical Exam General: Unresponsive Respiratory: Clear to auscultation bilaterally, Diminished Cardiovascular: No edema, Regular rate/rhythm Assessment & Plan - Problems (Diagnosis) (1) Acute respiratory failure with hypoxia Current Visit: Yes Status: Acute Plan: Respiratory failure able to wean patient off the ventilator stable to go to LTAC evidence of GI bleed white count declining hemoglobin stable on FiO2 of 50% white count declining patient is on levofloxacin blood cultures likely contaminant however continue with IV antibiotics for now Physician Review: Patient Assessed, Agree with Above Assessment and Plan
[2021-02-17] MEDS: Levofloxacin 750mg IV 750 MG/150 ML BAG IV SCH (12:55)
[2021-02-17] MEDS: ENOXAPARIN 40 MG/0.4 ML SQ SCH (18:07)
[2021-02-17] MEDS: VITAL HP 1,000 ML BOT RTH SCH (21:00)
[2021-02-17] MEDS: HALOPERIDOL LACT 5 MG/ML INJ IV PRN (23:10)
[2021-02-18 05:11] LABS: Absolute Lymphocytes (CBC) 0.6 K/uL (0.7-4.9); Basophils % 0.1 % (0-1.3); Hematocrit 28.7 % (39.6-49.0); Lymphocytes % 2.3 % (15.3-44.8); MPV 8.7 fL (7.6-11.3); RBC Red Blood Cell Count 2.94 M/uL (4.33-5.43)
[2021-02-18 05:26] LABS: ALT/SGPT 226 U/L (12-78); AST/SGOT 76 U/L (15-37); Albumin 1.9 g/dL (3.4-5.0); Alkaline Phosphatase 119 U/L (45-117); BUN Blood Urea Nitrogen 29 mg/dL (7-18); Bicarbonate 29 mmol/L (21-32); Bilirubin Total 1.3 mg/dL (0.2-1.0); Glucose Level 122 mg/dL (74-106); Magnesium 2.3 mg/dL (1.8-2.4); Phosphorus 3.9 mg/dL (2.5-4.9); Potassium 4.5 mmol/L (3.5-5.1); Protein, Total 5.1 g/dL (6.4-8.2); Sodium Level 132 mmol/L (136-145)
[2021-02-18] MEDS: HALOPERIDOL LACT 5 MG/ML INJ IV PRN ×2 (05:35→15:03)
[2021-02-18] MEDS: INSULIN -REGULAR HUMAN 50 UNIT/0.5 ML ML SQ SCH ×4 (05:35→17:14)
[2021-02-18 06:07] LABS: Anisocytosis 1+; Blood Morphology Comment NOTED (NOT SEEN); Platelet Estimate ADEQ; Polychromasia 2+
[2021-02-18] MEDS: HYDROMORPHONE HCL 2 MG/ML inj IV PRN ×5 (06:11→20:47)
--- NOTE | 2021-02-18 07:27 | RAD REPORT ---
EXAM DESCRIPTION: RAD - Chest Single View - 02/18/2021 6:23 am CLINICAL HISTORY: Respiratory failure COMPARISON: Chest Single View dated 02/16/2021; Chest Single View dated 02/15/2021; Chest Single Vie w dated 02/14/2021; Chest Single View dated 02/13/2021; Chest Angio dated 01/23/2021 FINDINGS: Lines: Endotracheal tube at the aortic arch. Right subclavian approach PICC with tip overl kacy the SVC. Feeding tube overlying the stomach. Lungs: Airspace disease in lung bases is similar. Irregular opacities in the lung apices, seemingly w orse on the right. Pleural: No significant pleural effusions or pneumothorax. Cardiac: The heart size is within normal limits. Bones: No acute fractures. Other: IMPRESSION: 1. Bilateral airspace disease with increasing nodularity in the right upper lung the cou ld reflect worsening. Suggest attention on follow-up. 2. Support apparatus in satisfactory position.
[2021-02-18] MEDS: ARFORMOTEROL TARTRATE 15 MCG/2 ML VIAL.NEB NEB SCH ×2 (07:49→19:30)
[2021-02-18] MEDS: FLUCONAZOLE 100 MG TAB PO SCH (08:07)
[2021-02-18] MEDS: predniSONE 20 MG TAB PO SCH ×2 (08:07→20:43)
[2021-02-18] MEDS: FAMOTIDINE 20 MG TAB PO SCH ×2 (08:08→20:43)
[2021-02-18] MEDS: POLYETHYL GLY 3350 17 GM/DOSE PO SCH (08:08)
[2021-02-18] MEDS: Levofloxacin 750mg IV 750 MG/150 ML BAG IV SCH (11:48)
[2021-02-18 13:20] LABS: Arterial Blood Carboxyhemoglob 2.4 % (0-1.5); Blood O2 Saturation 91.2 % (92-98.5)
--- NOTE | 2021-02-18 15:27 | P.PN ---
Subjective Date of Service: 02/18/21 Chief Complaint: Respiratory failure Patient on mechanical ventilator with FiO2 of 60%. He has been more responsive than before. Still with significant leukocytosis. Physical Examination - Vital Signs Temperature: 97.2 F Blood Pressure: 130/83 Pulse: 93 Respirations: 39 Pulse Ox (%): 90 Assessment And Plan - Current Problems (Diagnosis) (1) COPD exacerbation Current Visit: Yes Status: Acute (2) Pneumonia due to COVID-19 virus Current Visit: Yes Status: Acute (3) Acute respiratory failure with hypoxia Current Visit: Yes Status: Acute - Plan Physical exam: GEN: Intubated, opened eyes to verbal. Generalized edema. HEENT: NGT, ETT CV: Sinus rhythm, no edema Pulm: on mech ventilation, tachypneic, ABD: Soft, no distention. Integumentary: No rashes Neuro: sedated Problem List Acute hypoxemic respiratory failure secondary to COVID-19 pneumonia Acute on chronic COPD exacerbation Acute delirium /COVID encephalopathy Leukocytosis/sepsis Hyperkalemia Anemia, acute blood loss intubated 02/02 night due to worsening hypoxia Patient with persistent severe leukocytosis. blood: CONS - likely skin contaminant, repeat blood: no growth, 02/14 repeat blood: 1/4 bottles GPC Patient was febrile on 02/13, repeat cultures obtained. Sputum culture resulted 02/16 with Enterobacter and Pseudomonas. Sensitive to Levaquin. restarted Levaquin on 02/16 Suspect patient's encephalopathy likely component of delirium and COVID encephalopathy kayexalate prn for hyperkalemia. Anemia likely secondary to acute infection and chronic GI bleed. Hemoccult- positive. Decreased full dose anticoagulation to DVT prophylaxis. Aspirin discontinued. Hemoglobin has been stable. Status post 2u PRBC [facility] 02/[facility] continue tube feeds. Monitor for neurologic improvement. VTE: lovenox Code: full Dispo: continue ICU level of care, guarded prognosis Patient planned for LTAC. Physician Review: Patient Assessed, Agree with Above Assessment and Plan
[2021-02-18] MEDS: ENOXAPARIN 40 MG/0.4 ML SQ SCH (17:20)
[2021-02-19 04:56] LABS: Absolute Lymphocytes (CBC) 0.4 K/uL (0.7-4.9); Basophils % 0.1 % (0-1.3); Hematocrit 28.3 % (39.6-49.0); Lymphocytes % 1.9 % (15.3-44.8); MPV 8.9 fL (7.6-11.3); RBC Red Blood Cell Count 2.87 M/uL (4.33-5.43)
[2021-02-19 05:22] LABS: ALT/SGPT 182 U/L (12-78); AST/SGOT 66 U/L (15-37); Albumin 1.8 g/dL (3.4-5.0); Alkaline Phosphatase 114 U/L (45-117); BUN Blood Urea Nitrogen 24 mg/dL (7-18); Bicarbonate 30 mmol/L (21-32); Bilirubin Total 1.4 mg/dL (0.2-1.0); Glucose Level 134 mg/dL (74-106); Magnesium 2.3 mg/dL (1.8-2.4); Phosphorus 3.9 mg/dL (2.5-4.9); Potassium 4.5 mmol/L (3.5-5.1); Protein, Total 5.2 g/dL (6.4-8.2); Sodium Level 132 mmol/L (136-145)
[2021-02-19] MEDS: INSULIN -REGULAR HUMAN 50 UNIT/0.5 ML ML SQ SCH ×4 (05:50→17:41)
[2021-02-19] MEDS: HYDROMORPHONE HCL 2 MG/ML inj IV PRN ×4 (06:01→20:45)
--- NOTE | 2021-02-19 07:42 | RAD REPORT ---
EXAM DESCRIPTION: Paul Single View02/19/2021 5:53 am CLINICAL HISTORY: Respiratory failure COMPARISON: February 18, 2021 FINDINGS: No significant change in the bilateral pulmonary opacities. Heart is normal size. Feeding tube in the gastric fundus. Endotracheal tube has its tip 13 millimeters above the ruperto IMPRESSION: No significant change in the bilateral pulmonary opacities
[2021-02-19] MEDS: ARFORMOTEROL TARTRATE 15 MCG/2 ML VIAL.NEB NEB SCH ×2 (08:00→20:00)
[2021-02-19] MEDS: FLUCONAZOLE 100 MG TAB PO SCH (08:18)
[2021-02-19] MEDS: POLYETHYL GLY 3350 17 GM/DOSE PO SCH (08:18)
[2021-02-19] MEDS: FAMOTIDINE 20 MG TAB PO SCH ×2 (08:18→20:45)
[2021-02-19] MEDS: predniSONE 20 MG TAB PO SCH (08:18)
--- NOTE | 2021-02-19 08:23 | P.PN ---
Subjective Date of Service: 02/18/21 Chief Complaint: Respiratory failure Unable to wean,resp failure, responsive Review of Systems is unable to be obtained Physical Examination - Vital Signs Temperature: 97.8 F Blood Pressure: 144/86 Pulse: 100 Respirations: 22 Pulse Ox (%): 93 - Physical Exam General: Alert Respiratory: Clear to auscultation bilaterally, Diminished Cardiovascular: Normal S1 S2, Edema Assessment & Plan - Problems (Diagnosis) (1) Acute respiratory failure with hypoxia Current Visit: Yes Status: Acute Plan: Resp failure requiring vent support on 60% Fio2/ WBC declining/ COPD changes CW levaquin, Try weaning/Reduce steroids / HGB stable Physician Review: Patient Assessed, Agree with Above Assessment and Plan
[2021-02-19] MEDS: ALBUTEROL 2.5 MG/3 ML NEB SOL IH PRN (08:28)
[2021-02-19] MEDS: predniSONE 10 MG TAB PO SCH ×2 (09:00→20:45)
[2021-02-19 10:58] LABS: Arterial Blood Carboxyhemoglob 2.7 % (0-1.5); Blood Gas Oxyhemoglobin 85.2 % (94-97); Blood O2 Saturation 88.6 % (92-98.5)
[2021-02-19] MEDS: Levofloxacin 750mg IV 750 MG/150 ML BAG IV SCH (12:49)
--- NOTE | 2021-02-19 13:41 | P.PN ---
Subjective Date of Service: 02/19/21 Chief Complaint: Respiratory failure Patient on mechanical ventilator with FiO2 of 55%. Patient opened eyes to verbal and respond by nodding. Leukocytosis is trending down. Patient was on a trial of CPAP/pressure support for 1 hour today. Physical Examination - Vital Signs Temperature: 96.7 F Blood Pressure: 135/85 Pulse: 90 Respirations: 26 Pulse Ox (%): 92 - Physical Exam General: In no apparent distress, Other (Arousable) HEENT: Other Assessment And Plan - Current Problems (Diagnosis) (1) COPD exacerbation Current Visit: Yes Status: Acute (2) Pneumonia due to COVID-19 virus Current Visit: Yes Status: Acute (3) Acute respiratory failure with hypoxia Current Visit: Yes Status: Acute - Plan Physical exam: GEN: Intubated, opened eyes to verbal. Generalized edema. HEENT: NGT, ETT CV: Sinus rhythm, no edema Pulm: on mech ventilation, tachypneic, ABD: Soft, no distention. Integumentary: No rashes Neuro: sedated Problem List Acute hypoxemic respiratory failure secondary to COVID-19 pneumonia Acute on chronic COPD exacerbation Acute delirium /COVID encephalopathy Leukocytosis/sepsis Hyperkalemia Anemia, acute blood loss intubated 02/02 night due to worsening hypoxia Leukocytosis trending down. blood culture: CONS - likely skin contaminant, repeat blood: no growth, 02/14 repeat blood: 1/4 bottles GPC Patient was febrile on 02/13, repeat cultures obtained. Sputum culture resulted 02/16 with Enterobacter and Pseudomonas. Sensitive to Levaquin. Continue Levaquin. Suspect patient's encephalopathy likely component of delirium and COVID encephalopathy Anemia likely secondary to acute infection and chronic GI bleed. Hemoccult- positive. Decreased full dose anticoagulation to DVT prophylaxis. Aspirin discontinued. Hemoglobin has been stable. Status post 2u PRBC on 02/14 continue mech ventilation continue tube feeds. Monitor for neurologic improvement. VTE: lovenox Code: full Dispo: continue ICU level of care, guarded prognosis Patient planned for LTAC.
[2021-02-19] MEDS: ENOXAPARIN 40 MG/0.4 ML SQ SCH (17:40)
[2021-02-20 04:51] LABS: Absolute Lymphocytes (CBC) 0.4 K/uL (0.7-4.9); Basophils % 0.3 % (0-1.3); Hematocrit 26.6 % (39.6-49.0); Lymphocytes % 2.4 % (15.3-44.8); MPV 8.8 fL (7.6-11.3); RBC Red Blood Cell Count 2.68 M/uL (4.33-5.43)
[2021-02-20 05:06] LABS: ALT/SGPT 143 U/L (12-78); AST/SGOT 54 U/L (15-37); Albumin 1.7 g/dL (3.4-5.0); Alkaline Phosphatase 103 U/L (45-117); BUN Blood Urea Nitrogen 22 mg/dL (7-18); Bicarbonate 30 mmol/L (21-32); Bilirubin Total 1.1 mg/dL (0.2-1.0); Glucose Level 130 mg/dL (74-106); Magnesium 2.3 mg/dL (1.8-2.4); Phosphorus 3.5 mg/dL (2.5-4.9); Potassium 4.2 mmol/L (3.5-5.1); Sodium Level 134 mmol/L (136-145)
[2021-02-20] MEDS: INSULIN -REGULAR HUMAN 50 UNIT/0.5 ML ML SQ SCH ×5 (06:00→23:59)
[2021-02-20] MEDS: ARFORMOTEROL TARTRATE 15 MCG/2 ML VIAL.NEB NEB SCH ×2 (07:32→19:45)
--- NOTE | 2021-02-20 08:11 | RAD REPORT ---
EXAM DESCRIPTION: RADMarilynt Single View02/20/2021 5:44 am CLINICAL HISTORY: Breasts are failure COMPARISON: February 19 2021 FINDINGS: No significant change the bilateral pulmonary opacities. Heart is normal size. Feeding tub e with its tip in the gastric fundus. Curvilinear density lower right lateral hemithorax skin fold versus small pneumothorax IMPRESSION: No change in the bilateral pulmonary opacities Curvilinear density lower right lateral hemithorax skin fold versus small pneumothorax
[2021-02-20] MEDS: FAMOTIDINE 20 MG TAB PO SCH ×2 (08:38→20:18)
[2021-02-20] MEDS: FLUCONAZOLE 100 MG TAB PO SCH (08:38)
[2021-02-20] MEDS: POLYETHYL GLY 3350 17 GM/DOSE PO SCH (08:38)
[2021-02-20] MEDS: predniSONE 10 MG TAB PO SCH ×2 (08:39→20:18)
[2021-02-20] MEDS: Levofloxacin 750mg IV 750 MG/150 ML BAG IV SCH (12:29)
[2021-02-20] MEDS: HYDROMORPHONE HCL 2 MG/ML inj IV PRN ×2 (12:37→20:40)
--- NOTE | 2021-02-20 12:39 | P.PN ---
Subjective Date of Service: 02/20/21 Chief Complaint: Respiratory failure Patient on mechanical ventilator with FiO2 of 55%. Patient tolerated pressures was a couple of hrs today Leukocytosis continue to trend down. Physical Examination - Vital Signs Temperature: 96.6 F Blood Pressure: 135/93 Pulse: 90 Respirations: 27 Pulse Ox (%): 92 - Physical Exam General: Other (Awake, mild distress on pressure support) HEENT: Other (ETT, NGT) Respiratory: Other (Mild labored breathing.) Cardiovascular: Regular rate/rhythm, Normal S1 S2 Gastrointestinal: Soft and benign, Non-distended Musculoskeletal: No swelling Assessment And Plan - Current Problems (Diagnosis) (1) COPD exacerbation Current Visit: Yes Status: Acute (2) Pneumonia due to COVID-19 virus Current Visit: Yes Status: Acute (3) Acute respiratory failure with hypoxia Current Visit: Yes Status: Acute - Plan Physical exam: GEN: Intubated, opened eyes to verbal. Generalized edema. HEENT: NGT, ETT CV: Sinus rhythm, no edema Pulm: on mech ventilation, tachypneic, mild labored breathing on pressure support. ABD: Soft, no distention. Integumentary: No rashes Neuro: sedated Problem List Acute hypoxemic respiratory failure secondary to COVID-19 pneumonia Acute on chronic COPD exacerbation Acute delirium /COVID encephalopathy Leukocytosis/sepsis Hyperkalemia Anemia, acute blood loss intubated 02/02 night due to worsening hypoxia Leukocytosis trending down. blood culture: CONS - likely skin contaminant, repeat blood: no growth, 02/14 repeat blood: 1/4 bottles GPC Repeat cultures obtained. Sputum culture resulted 02/16 with Enterobacter and Pseudomonas. Sensitive to Levaquin. Continue Levaquin. Suspect patient's encephalopathy likely component of delirium and COVID encephalopathy Anemia likely secondary to acute infection and chronic GI bleed. Hemoccult- positive. Decreased full dose anticoagulation to DVT prophylaxis. Aspirin discontinued. Hemoglobin has been stable. Status post 2u PRBC on 02/14 Mental status is improving. continue mech ventilation. Daily weaning trials. Pulmonary is following continue tube feeds. Monitor for neurologic improvement. VTE: lovenox Code: full Dispo: continue ICU level of care, guarded prognosis Patient planned for LTAC. Physician Review: Patient Assessed, Agree with Above Assessment and Plan
[2021-02-20] MEDS: ENOXAPARIN 40 MG/0.4 ML SQ SCH (16:55)
[2021-02-20 17:20] LABS: Arterial Blood Carboxyhemoglob 3.1 % (0-1.5); Blood Gas Oxyhemoglobin 84.5 % (94-97)
[2021-02-20] MEDS: HYDROCODONE/APAP 5/325 MG TAB PO PRN (20:17)
[2021-02-21] MEDS: HYDROMORPHONE HCL 2 MG/ML inj IV PRN ×3 (00:01→13:08)
[2021-02-21] MEDS: VITAL HP 1,000 ML BOT RTH SCH (04:22)
[2021-02-21 05:00] LABS: Absolute Lymphocytes (CBC) 0.4 K/uL (0.7-4.9); Basophils % 0.5 % (0-1.3); Hematocrit 27.1 % (39.6-49.0); Lymphocytes % 2.9 % (15.3-44.8); RBC Red Blood Cell Count 2.73 M/uL (4.33-5.43)
[2021-02-21 05:18] LABS: ALT/SGPT 120 U/L (12-78); AST/SGOT 46 U/L (15-37); Albumin 1.7 g/dL (3.4-5.0); Alkaline Phosphatase 96 U/L (45-117); BUN Blood Urea Nitrogen 21 mg/dL (7-18); Bicarbonate 30 mmol/L (21-32); Glucose Level 114 mg/dL (74-106); Magnesium 2.3 mg/dL (1.8-2.4); Phosphorus 4.3 mg/dL (2.5-4.9); Potassium 4.4 mmol/L (3.5-5.1); Protein, Total 4.9 g/dL (6.4-8.2); Sodium Level 132 mmol/L (136-145)
[2021-02-21] MEDS: INSULIN -REGULAR HUMAN 50 UNIT/0.5 ML ML SQ SCH ×2 (06:00→12:00)
[2021-02-21] MEDS: ARFORMOTEROL TARTRATE 15 MCG/2 ML VIAL.NEB NEB SCH (08:00)
[2021-02-21] MEDS: ALBUTEROL 2.5 MG/3 ML NEB SOL IH PRN ×2 (08:21→14:40)
[2021-02-21] MEDS: POLYETHYL GLY 3350 17 GM/DOSE PO SCH (08:31)
[2021-02-21] MEDS: predniSONE 10 MG TAB PO SCH (08:31)
[2021-02-21] MEDS: FLUCONAZOLE 100 MG TAB PO SCH (08:31)
[2021-02-21] MEDS: FAMOTIDINE 20 MG TAB PO SCH (08:33)
--- NOTE | 2021-02-21 08:36 | RAD REPORT ---
EXAM DESCRIPTION: RAD - Chest Single View - 02/21/2021 5:10 am CLINICAL HISTORY: Respiratory failure Chest pain. COMPARISON: Chest Single View dated 02/20/2021; Chest Single View dated 02/19/2021; Chest Single View dated 02/18/2021; Chest Single View dated 02/16/2021 FINDINGS: Portable technique limits examination quality. Tip of the endotracheal tube is at the level of superior aortic arch. Bilateral pulmonary opacities a re again seen, mildly progressive on the right since yesterday's study. Enteric tube descends into th e stomach.Right-sided PICC line has tip in SVC. The heart size is upper limit of normal.
--- NOTE | 2021-02-21 09:59 | P.PN ---
Subjective Date of Service: 02/21/21 Chief Complaint: Respiratory failure Patient's condition is improving he is more responsive he did tolerate to 4 hours of CPAP yesterday copious secretions today Review of Systems is unable to be obtained Physical Examination - Vital Signs Temperature: 97.2 F Blood Pressure: 123/70 Pulse: 87 Respirations: 27 Pulse Ox (%): 95 - Physical Exam General: Alert, Cooperative Cardiovascular: Regular rate/rhythm, Edema Neurological: Other (Minimal movement of upper extremities) Assessment & Plan - Problems (Diagnosis) (1) Acute respiratory failure with hypoxia Current Visit: Yes Status: Acute Plan: Respiratory failure patient's condition is stable vital signs are also stable we will continue to wean as per to an LTAC is pending white count declining hemoglobin stable no evidence of GI bleed chest x-ray no change labs medication list reviewed Physician Review: Patient Assessed, Agree with Above Assessment and Plan
--- NOTE | 2021-02-21 11:55 | P.DS ---
Admission Date: 01/22/21 Discharge Date: 02/21/21 Disposition: [facility] Discharge Condition: FAIR Reason for Admission: Respiratory failure - Problems (1) COPD exacerbation Current Visit: Yes Status: Acute (2) Pneumonia due to COVID-19 virus Current Visit: Yes Status: Acute (3) Acute respiratory failure with hypoxia Current Visit: Yes Status: Acute Brief History of Present Illness: Patient is a 75-year-old male with a past medical history significant for COPD, chronic cough and HTN presented with complaint of shortness of breath that has been ongoing for 1 week. Patient reported associated signs and symptoms of chest tightness. Symptoms are aggravated by exertion and relieved by nothing. Patient reported that he used his home breathing treatment but did not see any improvement in shortness of breath. Patient tested positive for COVID-19. Chest x-ray done showed early left lower lobe infiltrate. Patient was hypoxic on room air. He was admitted for further management. Hospital Course: Problem List Acute hypoxemic respiratory failure secondary to COVID-19 pneumonia Acute on chronic COPD exacerbation Acute delirium /COVID encephalopathy Leukocytosis/sepsis Hyperkalemia Anemia, acute blood loss. Patient admitted to the medical floor and started on Covid 19 protocol with IV steroid, vitamin supplementation. Patient required more oxygen, oxygen titrated up to high flow and BiPAP. He developed delirium with agitation. Was subsequently intubated intubated on 02/02 night due to worsening hypoxia and delirium. He developed severe leukocytosis and was treated with multiple antibiotics. Leukocytosis now trending down. blood culture: Coagulase-negative staph- likely skin contaminant, repeat blood: no growth, 02/14 repeat blood: 1/4 bottles GPC Repeat cultures: Staph hominis. Sputum culture resulted 02/16 with Enterobacter and Pseudomonas. Sensitive to Levaquin. Patient treated with Levaquin for several days. Leukocytosis improved. Suspect patient's encephalopathy likely component of delirium and COVID encephalopathy Anemia likely secondary to acute infection and chronic GI bleed. Hemoccult- positive. Decreased full dose anticoagulation to DVT prophylaxis. Aspirin discontinued. Hemoglobin has been stable. Status post 2u PRBC on 02/14 Mental status is improving[facility]. Patient tolerated pressure support ventilation for at least 1 hour but very tachypneic on pressure support. Pulmonary saw and assisted with management Tube feeding via NG tube-Vital AF Patient accepted to LTAC. Vitals are stable for transfer. Vital Signs/Physical Exam: Temp Pulse Resp BP Pulse Ox 97.2 F 87 27 H 123/70 95 02/21/21 09:59 02/21/21 09:59 02/21/21 09:59 02/21/21 09:59 02/21/21 09:59 General: Other (Easily arousable.) HEENT: Other (ETT and NGT) Respiratory: Other (On mechanical ventilation) Cardiovascular: Regular rate/rhythm, Normal S1 S2, Edema Gastrointestinal: Soft and benign, No tenderness Musculoskeletal: No tenderness Integumentary: No cyanosis Neurological: Other (Sedated.) Laboratory Data at Discharge: WBC 14.60 K/uL (4.3-10.9) H 02/21/21 04:35 Hgb 8.6 g/dL (13.6-17.9) L 02/21/21 04:35 Hct 27.1 % (39.6-49.0) L 02/21/21 04:35 Plt Count 138 K/uL (152-406) L 02/21/21 04:35 PT 15.1 SECONDS (9.5-12.5) H 02/13/21 05:10 INR 1.31 02/13/21 05:10 APTT 23.0 SECONDS (24.3-36.9) L 02/13/21 05:10 Sodium 132 mmol/L (136-145) L 02/21/21 04:35 Potassium 4.4 mmol/L (3.5-5.1) 02/21/21 04:35 BUN 21 mg/dL (7-18) H 02/21/21 04:35 Creatinine 0.32 mg/dL (0.55-1.3) L 02/21/21 04:35 Glucose 114 mg/dL (74-106) H 02/21/21 04:35 Phosphorus 4.3 mg/dL (2.5-4.9) 02/21/21 04:35 Magnesium 2.3 mg/dL (1.8-2.4) 02/21/21 04:35 Total Bilirubin 1.0 mg/dL (0.2-1.0) 02/21/21 04:35 AST 46 U/L (15-37) H 02/21/21 04:35 ALT 120 U/L (12-78) H 02/21/21 04:35 Alkaline Phosphatase 96 U/L (45-117) 02/21/21 04:35 Troponin I 0.07 ng/mL (0.0-0.045) H 01/23/21 03:13 Home Medications: Albuterol Neb [Proventil 0.083% Neb Soln] 2.5 mg IH Q6HP PRN amp 02/21/21 Arformoterol Tartrate [Brovana] 15 mcg NEB BIDRESP vial.neb 02/21/21 Enoxaparin Sodium [Lovenox 40 MG INJ*] 40 mg SQ DAILY 5 PM syr 02/21/21 Famotidine [Pepcid*] 20 mg PO BID tab 02/21/21 Haloperidol Lac [Haldol*] 2 mg IV Q4H PRN vial 02/21/21 Hydrocodone 5/APAP 325 [[place] 5/325*] 1 tab PO Q6H PRN tab 02/21/21 Hydromorphone [Dilaudid*] 1.5 mg IV Q2H PRN vial 02/21/21 Insulin -Regular Human [Novolin -R*] See Protocol SQ Q6HR ml 02/21/21 Ipratropium Neb [Atrovent*] 0.5 mg NEB [id number] amp 02/21/21 Ondansetron [Zofran*] 4 mg IV Q6HP PRN vial 02/21/21 Polyethyl Gly 3350 [Glycolax*] 17 gm PO DAILY udbot 02/21/21 predniSONE [Deltasone*] 10 mg PO BID tab 02/21/21 Followup: FAVIOLA MASON [Primary Care Provider] - Time spent managing pt's care (in minutes): 42
[2021-02-21 12:40] VITALS: BP 129/75
[2021-02-21 13:05] VITALS: O2SAT 96
[2021-02-21 13:48] VITALS: TEMP 97.3
[2021-02-21] MEDS ORDERED: IPRATROPIUM BROM 0.5MG/2.5ML NEB SCH (14:00)
== END 2021-02-21 14:22 | DRG 207 ==
LOC: ER 12:05 → ERHOLD 14:41 → OBSVTOIN 15:40 → 4TH 19:29 → 3RD-ICU 01-26 11:32
PROVIDERS: ADMIT Internal Medicine; ATTEND Internal Medicine
PROC: 5A09557 Assistance with Respiratory Ventilation, Greater than 96 Consecutive Hours, Continuous Positive Airway Pressure (ICD-10-PCS; 2021-02-02)
PROC: 5A1955Z Respiratory Ventilation, Greater than 96 Consecutive Hours (ICD-10-PCS; 2021-02-03)
PROC: 0BH17EZ Insertion of Endotracheal Airway into Trachea, Via Natural or Artificial Opening (ICD-10-PCS; 2021-02-03)
PROC: 02HV33Z Insertion of Infusion Device into Superior Vena Cava, Percutaneous Approach (ICD-10-PCS; 2021-02-06)
PROC: 30233N1 Transfusion of Nonautologous Red Blood Cells into Peripheral Vein, Percutaneous Approach (ICD-10-PCS; principal; 2021-02-14)
DX: U07.1 COVID-19 (principal); J12.82 Pneumonia due to coronavirus disease 2019; J96.01 Acute respiratory failure with hypoxia; A41.89 Other specified sepsis; J15.6 Pneumonia due to other Gram-negative bacteria; J44.1 Chronic obstructive pulmonary disease with (acute) exacerbation; G93.40 Encephalopathy, unspecified; D62 Acute posthemorrhagic anemia; J44.0 Chronic obstructive pulmonary disease with (acute) lower respiratory infection; K92.2 Gastrointestinal hemorrhage, unspecified; I24.8 Other forms of acute ischemic heart disease; E87.5 Hyperkalemia; R06.03 Acute respiratory distress; L89.812 Pressure ulcer of head, stage 2; I10 Essential (primary) hypertension; M54.50 Low back pain, unspecified; M79.606 Pain in leg, unspecified
CPT/HCPCS: 36415; 36430; 36569; 71045; 71275; 74018; 80048; 80053; 80076; 80202; 81003; 81015; 82140; 82274; 82728; 82805; 82947; 83540; 83605; 83615; 83735; 83880; 84100; 84132; 84145; 84439; 84443; 84466; 84484; 85014; 85018; 85025; 85027; 85044; 85610; 85730; 86140; 86850; 86900; 86901; 87040; 87070; 87077; 87086; 87088; 87186; 87205; 87804; 93005; 93306; 93971; 94002; 94003; 94640; 94660; 94760; 96372; 99285; G0378; J0696; J1160; J1170; J1450; J1630; J1644; J1650; J1940; J2185; J2250; J2405; J2920; J2930; J3370; J3411; J3475; J3486; J7030; J7040; J7050; J7060; J7512; J7605; J7606; P9016; Q9967; U0003